=== PATIENT | male | born 1960 | race Caucasian/White ===

== ENCOUNTER 2018-04-23 13:56 | Inpatient (IN) | payer MEDICARE, OTHER ==
--- NOTE | 2018-04-23 14:01 | ED ---
Weakness HPI - General Stated complaint: INFECTION Time Seen by Provider: 04/23/18 14:00 Source: RN notes reviewed, old records reviewed - History of Present Illness Initial comments: This is a 49-year-old male the ER for evaluation of wound recheck. Patient has left sacral decubitus ulcer become red and erythematous today. Patient notes any symptoms, he does not feel pain there, he denies any fevers. Per staff patient had change in infection and change and wound overnight. Location: other (Patient has left pulse ox decubitus ulcer) Severity: severe (Surrounding erythema) Improves with: none Worsens with: none Context: recent surgery, history of similar (Patient has chronic decubitus) Associated Symptoms: denies other symptoms - Related Data Home Medications Medication Instructions Recorded Confirmed Acetaminophen [Tylenol] 650 mg PO Q6HR 04/23/18 04/23/18 Acetaminophen-Codeine 300-30mg 1 tab PO Q4H 04/23/18 04/23/18 [Tylenol w/codeine #3] Collagenase [Santyl] 1 applic TOPICAL HS 04/23/18 04/23/18 Lisinopril [Prinivil] 5 mg PO DAILY 04/23/18 04/23/18 Magnesium Hydroxide [Milk of 2,400 mg PO DAILY PRN 04/23/18 04/23/18 Magnesia] Omeprazole 20 mg PO BID 04/23/18 04/23/18 Potassium Chloride [Klor-Con 20] 20 meq PO DAILY 04/23/18 04/23/18 Simethicone [Gas-X] 125 mg PO Q8HR PRN 04/23/18 04/23/18 Allergies Allergy/AdvReac Type Severity Reaction Status Date / Time No Known Allergies Allergy Verified 04/23/18 14:20 Review of Systems ROS Statement: Those systems with pertinent positive or pertinent negative responses have been documented in the HPI. ROS Other: All systems not noted in ROS Statement are negative. Past Medical History - Past Family History Mother Family Medical History: Cancer Additional Family Medical History / Comment(s): breast cancer. mom's mom had breast cancer Sister(s) Family Medical History: Cancer Additional Family Medical History / Comment(s): breast cancer General Exam - General Exam Comments Initial Comments: Significant left sacral decubitus, wound is packed draining pus of ear surrounding erythema General appearance: alert, in no apparent distress Head exam: Present: atraumatic, normocephalic, normal inspection Eye exam: Present: normal appearance, PERRL, EOMI. Absent: scleral icterus, conjunctival injection, periorbital swelling ENT exam: Present: normal exam, mucous membranes moist Neck exam: Present: normal inspection. Absent: tenderness, meningismus, lymphadenopathy Respiratory exam: Present: normal lung sounds bilaterally. Absent: respiratory distress, wheezes, rales, rhonchi, stridor Cardiovascular Exam: Present: regular rate, normal rhythm, normal heart sounds. Absent: systolic murmur, diastolic murmur, rubs, gallop, clicks GI/Abdominal exam: Present: soft, normal bowel sounds. Absent: distended, tenderness, guarding, rebound, rigid Extremities exam: Present: normal inspection, full ROM, normal capillary refill. Absent: tenderness, pedal edema, joint swelling, calf tenderness Back exam: Present: normal inspection Neurological exam: Present: alert, oriented X3, CN II-XII intact Psychiatric exam: Present: normal affect, normal mood Skin exam: Present: warm, dry, intact, normal color. Absent: rash Course Vital Signs 04/23/18 04/23/18 14:01 17:00 Temperature 98.9 F 98.3 F Pulse Rate 115 H 99 Respiratory 20 18 Rate Blood Pressure 104/65 105/65 O2 Sat by Pulse 100 96 Oximetry - Reevaluation(s) Reevaluation #1: 04/23/18 14:18 Medical record is reviewed Reevaluation #2: 04/23/18 14:18 Patient has significant wound to the left buttock's, wound is packed draining pus Medical Decision Making - Medical Decision Making 57 male the ER for evaluation of left sacral decubitus ulcer, patient is paraplegic pain, CT negative for abscess or air. Patient placed on antibiotics will admit for wound care - Lab Data Result diagrams: 04/23/18 14:40 04/25/18 06:57 Lab Results 04/23/18 04/23/18 04/23/18 Range/Units 14:40 14:40 14:40 WBC 14.2 H (3.8-10.6) k/uL RBC 3.85 L (4.30-5.90) m/uL Hgb 10.7 L (13.0-17.5) gm/dL Hct 34.0 L (39.0-53.0) % MCV 88.1 (80.0-100.0) fL MCH 27.8 (25.0-35.0) pg MCHC 31.5 (31.0-37.0) g/dL RDW 14.5 (11.5-15.5) % Plt Count 497 H (150-450) k/uL Neutrophils % 80 % Lymphocytes % 8 % Monocytes % 5 % Eosinophils % 4 % Basophils % 0 % Neutrophils # 11.4 H (1.3-7.7) k/uL Lymphocytes # 1.2 (1.0-4.8) k/uL Monocytes # 0.8 (0-1.0) k/uL Eosinophils # 0.5 (0-0.7) k/uL Basophils # 0.1 (0-0.2) k/uL Hypochromasia Slight PT (9.0-12.0) sec INR (<1.2) APTT (22.0-30.0) sec Sodium 133 L (137-145) mmol/L Potassium 5.7 H (3.5-5.1) mmol/L Chloride 102 (98-107) mmol/L Carbon Dioxide 22 (22-30) mmol/L Anion Gap 9 mmol/L BUN 35 H (9-20) mg/dL Creatinine 0.75 (0.66-1.25) mg/dL Est GFR (CKD-EPI)AfAm >90 (>60 ml/min/1.73 sqM) Est GFR (CKD-EPI)NonAf >90 (>60 ml/min/1.73 sqM) Glucose 114 H (74-99) mg/dL Plasma Lactic Acid Ramsey (0.7-2.0) mmol/L Calcium 12.4 H (8.4-10.2) mg/dL Phosphorus 2.9 (2.5-4.5) mg/dL Magnesium 1.9 (1.6-2.3) mg/dL Total Bilirubin 0.4 (0.2-1.3) mg/dL AST 43 (17-59) U/L ALT 113 H (21-72) U/L Alkaline Phosphatase 148 H (38-126) U/L Total Creatine Kinase <20 L (55-170) U/L CK-MB (CK-2) <0.2 (0.0-2.4) ng/mL CK-MB (CK-2) Rel Index Troponin I <0.012 (0.000-0.034) ng/mL Total Protein 6.9 (6.3-8.2) g/dL Albumin 3.2 L (3.5-5.0) g/dL Urine Color Urine Appearance (Clear) Urine pH (5.0-8.0) Ur Specific [place] (1.001-1.035) Urine Protein (Negative) Urine Glucose (UA) (Negative) Urine Ketones (Negative) Urine Blood (Negative) Urine Nitrite (Negative) Urine Bilirubin (Negative) Urine Urobilinogen (<2.0) mg/dL Ur Leukocyte Esterase (Negative) Urine RBC (0-5) /hpf Urine WBC (0-5) /hpf Urine WBC Clumps (None) /hpf Amorphous Sediment (None) /hpf Urine Bacteria (None) /hpf Hyaline Casts (0-2) /lpf Granular Casts (0) /lpf Urine Mucus (None) /hpf 04/23/18 04/23/18 04/23/18 Range/Units 14:40 14:40 14:40 WBC (3.8-10.6) k/uL RBC (4.30-5.90) m/uL Hgb (13.0-17.5) gm/dL Hct (39.0-53.0) % MCV (80.0-100.0) fL MCH (25.0-35.0) pg MCHC (31.0-37.0) g/dL RDW (11.5-15.5) % Plt Count (150-450) k/uL Neutrophils % % Lymphocytes % % Monocytes % % Eosinophils % % Basophils % % Neutrophils # (1.3-7.7) k/uL Lymphocytes # (1.0-4.8) k/uL Monocytes # (0-1.0) k/uL Eosinophils # (0-0.7) k/uL Basophils # (0-0.2) k/uL Hypochromasia PT 10.6 (9.0-12.0) sec INR 1.1 (<1.2) APTT 22.7 (22.0-30.0) sec Sodium (137-145) mmol/L Potassium (3.5-5.1) mmol/L Chloride (98-107) mmol/L Carbon Dioxide (22-30) mmol/L Anion Gap mmol/L BUN (9-20) mg/dL Creatinine (0.66-1.25) mg/dL Est GFR (CKD-EPI)AfAm (>60 ml/min/1.73 sqM) Est GFR (CKD-EPI)NonAf (>60 ml/min/1.73 sqM) Glucose (74-99) mg/dL Plasma Lactic Acid Ramsey 1.5 (0.7-2.0) mmol/L Calcium (8.4-10.2) mg/dL Phosphorus (2.5-4.5) mg/dL Magnesium (1.6-2.3) mg/dL Total Bilirubin (0.2-1.3) mg/dL AST (17-59) U/L ALT (21-72) U/L Alkaline Phosphatase (38-126) U/L Total Creatine Kinase (55-170) U/L CK-MB (CK-2) (0.0-2.4) ng/mL CK-MB (CK-2) Rel Index Troponin I (0.000-0.034) ng/mL Total Protein (6.3-8.2) g/dL Albumin (3.5-5.0) g/dL Urine Color Yellow Urine Appearance Cloudy (Clear) Urine pH 6.0 (5.0-8.0) Ur Specific [place] 1.013 (1.001-1.035) Urine Protein Trace H (Negative) Urine Glucose (UA) Negative (Negative) Urine Ketones Negative (Negative) Urine Blood Small H (Negative) Urine Nitrite Negative (Negative) Urine Bilirubin Negative (Negative) Urine Urobilinogen <2.0 (<2.0) mg/dL Ur Leukocyte Esterase Large H (Negative) Urine RBC 6 H (0-5) /hpf Urine WBC >182 H (0-5) /hpf Urine WBC Clumps Many H (None) /hpf Amorphous Sediment Occasional H (None) /hpf Urine Bacteria Moderate H (None) /hpf Hyaline Casts 6 H (0-2) /lpf Granular Casts 3 (0) /lpf Urine Mucus Rare H (None) /hpf - Radiology Data Radiology results: report reviewed (CT abdomen pelvis likely cellulitis), image reviewed Disposition Clinical Impression: Sacral decubitus ulcer, stage IV, UTI (urinary tract infection) Disposition: ADMITTED IP TO THIS HOSP Condition: Serious Is patient prescribed a controlled substance at d/c from ED?: No
[2018-04-23] MEDS ORDERED: PIPERACILLIN-TAZOBACTAM 3.375 GM in SODIUM CHLORIDE 0.9% 100 ML IVPB STA (14:12)
[2018-04-23] MEDS ORDERED: SODIUM CHLORIDE 0.9% 500 ML 500 ML IV STA (14:12)
[2018-04-23] MEDS ORDERED: VANCOMYCIN IV PER PHARMACY 1 EACH MISC MISCELLANE PRN (14:12)
[2018-04-23] MEDS ORDERED: SODIUM CHLORIDE 0.9% 1,000 ML IV STA (14:12)
[2018-04-23 15:09] LABS: Basophils # (A) 0.1 k/uL (0-0.2); Basophils % (A) 0 %; Eosinophils # (A) 0.5 k/uL (0-0.7); Eosinophils % (A) 4 %; HGB 10.7 gm/dL (13.0-17.5); Hypochromasia Slight; Lymphocytes # (A) 1.2 k/uL (1.0-4.8); Lymphocytes % (A) 8 %; MCH 27.8 pg (25.0-35.0); MCHC 31.5 g/dL (31.0-37.0); MCV 88.1 fL (80.0-100.0); Mean Platelet Volume 7.1; Monocytes # (A) 0.8 k/uL (0-1.0); Monocytes % (A) 5 %; Neutrophils # (A) 11.4 k/uL (1.3-7.7); Neutrophils % (A) 80 %; Platelet Count 497 k/uL (150-450); RBC 3.85 m/uL (4.30-5.90); RDW 14.5 % (11.5-15.5); WBC 14.2 k/uL (3.8-10.6)
[2018-04-23 15:15] LABS: Amorphous Sediment,Urine Occasional /hpf; Appearance,Urine Cloudy (Clear); Bacteria,Urine Moderate /hpf; Bilirubin,Urine Negative (Negative); Blood,Urine Small (Negative); Color,Urine Yellow; Glucose,Urine (UA) Negative (Negative); Granular Casts,Urine 3 /lpf (0); Hyaline Casts,Urine 6 /lpf (0-2); Ketones,Urine Negative (Negative); Leukocyte Esterase,Urine Large (Negative); Mucus,Urine Rare /hpf; Nitrite,Urine Negative (Negative); Protein,Urine Trace (Negative); RBC,Urine 6 /hpf (0-5); Specific Gravity,Urine 1.013 (1.001-1.035); Urobilinogen,Urine <2.0 mg/dL (<2.0); WBC,Urine >182 /hpf (0-5)
[2018-04-23] MEDS ORDERED: VANCOMYCIN 1,000 MG in SODIUM CHLORIDE 0.9% 250 ML IVPB STA (15:17)
[2018-04-23 15:21] LABS: ALT 113 U/L (21-72); AST 43 U/L (17-59); Albumin 3.2 g/dL (3.5-5.0); Alkaline Phosphatase 148 U/L (38-126); Anion Gap 9 mmol/L; Blood Urea Nitrogen 35 mg/dL (9-20); Calcium 12.4 mg/dL (8.4-10.2); Carbon Dioxide 22 mmol/L (22-30); Chloride 102 mmol/L (98-107); Glucose 114 mg/dL (74-99); Magnesium 1.9 mg/dL (1.6-2.3); Phosphorus 2.9 mg/dL (2.5-4.5); Potassium 5.7 mmol/L (3.5-5.1); Sodium 133 mmol/L (137-145); Total Bilirubin 0.4 mg/dL (0.2-1.3); Total Protein 6.9 g/dL (6.3-8.2)
[2018-04-23 15:53] LABS: Creatine Kinase <20 U/L (55-170)
[2018-04-23 15:54] LABS: INR 1.1 (<1.2); Partial Thromboplastin Time 22.7 sec (22.0-30.0); Prothrombin Time 10.6 sec (9.0-12.0)
[2018-04-23] MEDS ORDERED: SODIUM CHLORIDE 0.9% 1,000 ML IV SCH (16:00)
[2018-04-23] MEDS ORDERED: PIPERACILLIN-TAZOBACTAM 3.375 GM in SODIUM CHLORIDE 0.9% 100 ML IVPB SCH (16:00)
[2018-04-23 16:06] LABS: Creatine Kinase MB <0.2 ng/mL (0.0-2.4); Troponin I <0.012 ng/mL (0.000-0.034)
--- NOTE | 2018-04-23 16:26 | CT ---
EXAMINATION TYPE: CT abdomen pelvis w con DATE OF EXAM: 04/23/2018 COMPARISON: None HISTORY: Infection to buttocks CT DLP: 1065.9 mGycm Automated exposure control for dose reduction was used. TECHNIQUE: Helical acquisition of images from the lung bases through the pelvis have been completed. CONTRAST: Performed without Oral Contrast and with IV Contrast, patient injected with 100 mL of Isovue 300. FINDINGS: LUNG BASES: No significant abnormality is appreciated. AORTA: No significant abnormality is appreciated. LIVER/GB: No significant abnormality is appreciated. PANCREAS: No significant abnormality is seen. SPLEEN: No significant abnormality is seen. ADRENALS: No significant abnormality is seen. KIDNEYS: Postop changes are noted to the left kidney, there are surgical clips present, left retroaor tic renal vein is present REPRODUCTIVE ORGANS: No significant abnormality is seen BOWEL: No significant abnormality is seen. FREE AIR: No Free Air visible. ASCITES: None visible. PELVIC ADENOPATHY: None visualized. RETROPERITONEAL ADENOPATHY: No Retroperitoneal Adenopathy visible. URINARY BLADDER: Suprapubic catheter is in place, the bladder wall is thickened OSSEOUS STRUCTURES: Spina bifida deformity is present, there is a scoliotic curvature with a rotator y component of the spine. Distortion of the hips is likely chronic. Sacrum shows an abnormal appearan ce, abnormal segmentation noted at the lower lumbar spine, anterior wedging present of the lower lumb ar segment is likely congenital. Superficial to this level there is abnormal thickening of the skin l ikely due to cellulitis. No definite periosteal new bone formation to suggest osteomyelitis. IMPRESSION: CORRELATE FOR CELLULITIS. BONE SCAN OR MRI MAY BE OF INCREASED SENSITIVITY. 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 NO EVIDENT ABSCESS.
--- NOTE | 2018-04-23 17:21 | XR ---
EXAMINATION TYPE: XR chest 2V DATE OF EXAM: 04/23/2018 COMPARISON: NONE HISTORY: Weakness TECHNIQUE: Frontal and lateral views of the chest are obtained. FINDINGS: There is no heart failure nor confluent pneumonic infiltrate. There is poor inspiration. C ostophrenic angles are clear. Bony thorax is intact. IMPRESSION: No active cardiopulmonary disease.
[2018-04-23 18:06] VITALS: BMI 24.9
[2018-04-23] MEDS: Acetaminophen-Codeine 300-30mg TAB PO SCH ×2 (19:27→23:15)
[2018-04-23] MEDS: SODIUM CHLORIDE 0.9% 1,000 ML IV SCH (20:51)
[2018-04-23] MEDS ORDERED: NON-FORMULARY DRUG (Omeprazole [Omeprazole] 20 MG) PO SCH (21:00)
[2018-04-23] MEDS ORDERED: MAGNESIUM HYDROXIDE 2,400 MG/10 ML CUP PO PRN ×2 (23:04)
[2018-04-23] MEDS ORDERED: ONDANSETRON 4 MG/2 ML VIAL IVP PRN (23:04)
[2018-04-23] MEDS ORDERED: SIMETHICONE 80 MG CHEWABLE PO PRN (23:04)
[2018-04-23] MEDS ORDERED: CALCIUM CARBONATE 500 MG CHEWABLE PO PRN (23:04)
[2018-04-23] MEDS ORDERED: MELATONIN 3 MG TABLET PO PRN (23:04)
[2018-04-23] MEDS ORDERED: LACTULOSE 20 GM/30 ML CUP PO PRN (23:04)
[2018-04-23] MEDS ORDERED: ALPRAZolam 0.25 MG TAB PO PRN (23:04)
[2018-04-23] MEDS ORDERED: SODIUM POLYSTYRENE SULFONATE 15 GM/60 ML BOTTLE PO STA (23:12)
[2018-04-23] MEDS: PIPERACILLIN-TAZOBACTAM 3.375 GM in SODIUM CHLORIDE 0.9% 100 ML IVPB SCH (23:15)
--- NOTE | 2018-04-23 23:50 | HP ---
HISTORY AND PHYSICAL DATE OF ADMISSION: 04/23/2018 DATE OF SERVICE: 04/23/2018 PRESENTING COMPLAINT: Sacral decubitus ulcer, infected. HISTORY OF PRESENTING COMPLAINT: This is a very pleasant 57-year-old patient who had recently been followed by Dr. Nam. Chronic stable medical conditions include GERD, hypertension, primary osteoarthritis, neurogenic bladder, spina bifid, hiatal hernia, an injury to the right shoulder muscle. The patient in summer of this year took a fall from a chair. It is unclear exactly what happened. He suffered injury to his right shoulder. The patient has chronic sacral decubitus ulcer that has dressing changes done every about twice a day. He was sent in because looking large wound was being exposed looking more infected and draining. Hence he was sent in for the same. The patient has got a suprapubic catheter and the patient normally has a daily evacuation. The patient used to do it manually before but now able to go himself. Patient also got a right heel decubitus ulcer. There has been no fever. No chills. Appetite is good. REVIEW OF SYSTEMS: CONSTITUTIONAL: None. HEENT: None. RESPIRATORY: None. CARDIOVASCULAR: None. GASTROINTESTINAL none. GENITOURINARY as above. MUSCULOSKELETAL: As above. DERMATOLOGICAL as above. LYMPHATICS none. PSYCHIATRY none. NEUROLOGICAL: Lower limbs contracted contractures and weakness. PAST MEDICAL HISTORY: GERD, hypertension, osteoarthritis, UTI and neurogenic bladder, spina bifid suprapubic catheter, lumbar sacral decubital ulcers, hiatal hernia, ureteral stricture, torn muscle in the right shoulder. PAST SURGICAL HISTORY: Cholecystectomy, multiple surgeries, skin graft, spina bifid, kidney surgery with the stent, pubic catheter skin cancer removed from the lower back. SOCIAL HISTORY: The patient smoked for 38 years, stopped in 2012, has not drank any. Patient used to drink occasional alcohol which he stopped in December. FAMILY HISTORY: Maternal grandmother had breast cancer. HOME MEDICATIONS: 1. Gas-X 125 mg q.8h p.r.n. 2. Potassium 20 mEq p.o. daily. 3. Omeprazole 20 mg b.i.d. 4. Milk of magnesia 25 mg p.o. daily p.r.n. 5. Prinivil 5 mg p.o. daily. 6. Santal 1 application topical q.h.s. 7. Tylenol 3 one tablet q.4 p.r.n. 8. Tylenol 650 mg q.6h p.r.n. ALLERGIES: None. PHYSICAL EXAMINATION: VITAL SIGNS: Temperature 98.9, pulse 1 1 5, respiration 20, blood pressure 104/65, pulse 100 percent on room air. GENERAL: Average build, lying in bed, comfortable, watching TV. EYES : Pupils equal. Conjunctivae normal. HEENT: External appearance of nose and ears normal. Oral cavity normal. NECK: JVD not raised. Mass not palpable. RESPIRATORY effort normal. LUNGS: Clear. CARDIOVASCULAR: 1st and 2nd sounds normal. No edema. ABDOMEN: Soft nontender liver is not palpable. Suprapubic catheter present. LYMPHATICS: No lymph nodes palpable in neck and axillae. PSYCHIATRY: Alert and oriented x3. Mood and affect normal. NEUROLOGICAL: Both the lower limbs are contracted shortened with decreased sensation. DERMATOLOGICAL: Large decubitus on the back with some exposure to the bone. Pictures in the chart. The patient has got an ulcer on the right heel. INVESTIGATIONS: White count 14.2, hemoglobin 10.7, platelets 497. Potassium 5.7, BUN 35, creatinine 0.75. ASSESSMENT: 1. Large decubital ulcer with secondary infection, concern for underlying osteomyelitis needs further workup. 2. Normocytic anemia probably from chronic decubitus ulcer. 3. Reactive thrombocytosis. 4. Hyperkalemia. 5. Possibly asymptomatic bacteriuria. 6. Chronic neurogenic bladder from spina bifida with a suprapubic catheter. 7. Chronic paraplegia from spina bifida. 8. Hyperkalemia. The patient is on Prinivil and is also on potassium supplement. PLAN: Both patient's MELVIN inhibitor and potassium supplement will be discontinued as blood pressure is not too high right now. Will choose a different antihypertensive if indicated. Start the patient on IV fluids. Both Infectious Disease and general surgery was consulted. The patient will probably need a bone scan or simply the base looks patient may need long-term antibiotics antibiotics. Care was discussed with the patient. Questions were answered copy to Dr. Nam. ROBERTO / QUE: [id number] /
--- NOTE | 2018-04-24 00:05 | CONS ---
CONSULTATION DATE OF SERVICE: 04/23/2018. REASON FOR CONSULTATION: Infected sacral pressure ulcer. HISTORY OF PRESENT ILLNESS: The patient is a 57-year-old male with a past medical history significant for spina bifida. The patient who apparently did have a wound to the sacral area for a couple of weeks to months now. The patient who is a resident of [facility] and has been under the care of Dr. Chapa, the wound care physician at that facility. The patient has been sent to the [facility] ER for evaluation of an infected wound. The patient apparently noticed to have purulent drainage from the sacral wound for the last few days. The patient does not have any significant sensation to the sacral area because of spinal bifida. Denies significant pain to that area. However, the drainage has been mostly moderate and purulent with no evidence of any blood. The patient did have some chills but denies high-grade fever. With these symptoms, the patient has been evaluated by the ER physician. Patient was slightly tachycardic on presentation however no fever. The patient did have a white count of 14.2. Urine has been positive as well. The patient did have a CT of the abdomen and pelvis obtained which did not show any definite evidence of an abscess or the periosteal lesion suspicious for osteomyelitis of the sacral bone. The patient was started on vancomycin and Zosyn. Infectious Disease was consulted for further recommendation regarding antibiotic therapy. REVIEW OF SYSTEMS: CONSTITUTIONAL: Positive for weakness. Denies any fever. EYES no complaint. ENT no complaint. Respiratory no complaint. Cardiovascular no complaint. Genitourinary no complaint. Gastrointestinal: No complaint. Musculoskeletal as per HPI. INTEGUMENTARY as per HPI. Psychological no complaint. Endocrine no complaint. Neurological no complaint. PAST MEDICAL HISTORY: Significant for a spina bifida, chronic nonhealing wound to the sacral area, hypertension, gastroesophageal reflux disease. PAST SURGICAL HISTORY: No major surgeries documented in chart. SOCIAL HISTORY: The patient is currently a resident of a [facility]. Denies any smoking, drinking or drug use. FAMILY HISTORY: No pertinent findings noticed. ALLERGIES: No known drug allergies. MEDICATION: The patient is on Zestril, Tylenol #3, Protonix, Zosyn and vancomycin pharmacy to dose. EXAMINATION: Blood pressure is 127/74 with a pulse of 108, temperature 98.4. He is 99% on room air. General description is a middle-aged male lying in bed in no distress. No tachypnea or accessory muscles of respiration use. HEENT: Shows slight pallor. No scleral icterus. Oral mucosa is dry. No pharyngeal erythema. Neck trachea is central. No thyromegaly. Lungs: Unlabored breathing. Clear to auscultation anteriorly. No wheeze or crackles. Heart S1, S2. Regular rate and rhythm. ABDOMEN: Soft, no tenderness. No guarding or rigidity. EXTREMITIES: No edema of feet. Examination of sacral area: The patient did have a deep wound with probing all the way down to the bone with a significant amount of purulent material that has been seen that has been cultured with some surrounding redness, minimal foul smelling drainage. Neurological: Patient is awake, alert , oriented. Mood and affect normal. LABS: Hemoglobin is 10.7, white count 14.2, BUN of 35, creatinine 0.75, potassium was 5.7. UA has been positive. However, this has been collected from the Haas catheter the patient has. DIAGNOSTIC IMPRESSION/PLAN: 1. Patient admitted to the hospital with nonhealing sacral wound with concern for underlying osteomyelitis as wound is probing down to the bone. In view of the significant purulent drainage that has been seen, concern for underlying abscess that may need to be drained surgically. 2. Likely organism that will be covered, will be the gram-positive skin maría. However in view of the close proximity to the gastrointestinal tract, underlying gram-negative infection to be considered as well as the patient being halfway resident likely will need to cover will be MRSA and Pseudomonas aeruginosa. 3. Patient does have a positive UA and this has been collected from Haas catheter, chronic indwelling and question of possible Haas colonization. PLAN: 1. Wound culture has been obtained to guide further antibiotic therapy, both aerobic and anaerobic. 2. Recommend obtaining General Surgery evaluation for debridement of this wound and deep cultures. 3. The patient will be treated with vancomycin pharmacy to dose target trough of 15 along with Zosyn 3.375 g Q 8. 4. Continuous Haas catheter. Obtain urine culture from new Haas. 5. We will follow up on clinical condition as well as cultures to further adjust medication if needed. Thank you for this consultation. Will follow the patient along with you. MMODL / IJN: [id number] / KATERIN
[2018-04-24] MEDS: SODIUM CHLORIDE 0.9% 1,000 ML IV SCH ×4 (00:35→22:05)
[2018-04-24] MEDS: ACETAMINOPHEN TAB 325 MG TAB PO SCH ×4 (00:35→16:42)
[2018-04-24 01:15] LABS: Appearance,Urine Cloudy (Clear); Bacteria,Urine Few /hpf; Bilirubin,Urine Negative (Negative); Blood,Urine Small (Negative); Color,Urine Light Yellow; Glucose,Urine (UA) Negative (Negative); Ketones,Urine Negative (Negative); Leukocyte Esterase,Urine Large (Negative); Mucus,Urine Rare /hpf; Nitrite,Urine Negative (Negative); PH, Urine 5.5 (5.0-8.0); Protein,Urine Trace (Negative); RBC,Urine 4 /hpf (0-5); Specific Gravity,Urine 1.016 (1.001-1.035); Urobilinogen,Urine <2.0 mg/dL (<2.0)
[2018-04-24] MEDS: Acetaminophen-Codeine 300-30mg TAB PO SCH ×5 (04:02→22:04)
[2018-04-24] MEDS: VANCOMYCIN 1,000 MG in SODIUM CHLORIDE 0.9% 250 ML IVPB SCH ×2 (05:05→17:43)
[2018-04-24 08:10] LABS: Anion Gap 5 mmol/L; Blood Urea Nitrogen 27 mg/dL (9-20); Calcium 11.2 mg/dL (8.4-10.2); Carbon Dioxide 21 mmol/L (22-30); Chloride 110 mmol/L (98-107); Glucose 97 mg/dL (74-99); Potassium 4.7 mmol/L (3.5-5.1); Sodium 136 mmol/L (137-145)
[2018-04-24] MEDS: PIPERACILLIN-TAZOBACTAM 3.375 GM in SODIUM CHLORIDE 0.9% 100 ML IVPB SCH ×2 (08:50→16:38)
[2018-04-24] MEDS ORDERED: PANTOPRAZOLE 40 MG/10 ML VIAL IV SCH (09:00)
[2018-04-24] MEDS ORDERED: POTASSIUM CHLORIDE ER 20 MEQ TAB.ER PO SCH (09:00)
[2018-04-24] MEDS ORDERED: LISINOPRIL 5 MG TAB PO SCH (09:00)
--- NOTE | 2018-04-24 18:30 | PN ---
PROGRESS NOTE DATE OF SERVICE: 04/24/2018 PRESENTING COMPLAINT: Infected decubitus ulcer. INTERVAL HISTORY: This patient with spina bifid and paraplegia presented with a large infected decubitus ulcer. The patient is on broad-spectrum antibiotics, being followed by ID, and General Surgery was consulted. Currently no fever, no chills. REVIEW OF SYSTEMS: Done for constitutional, cardiovascular, GI, pulmonary, dermatologic; relevant findings as above. CURRENT MEDICATIONS: Reviewed. They include IV Zosyn and vancomycin. PHYSICAL EXAMINATION: Afebrile. Pulse 78, respiration 16, blood pressure 103/65, pulse ox 100% on room air. GENERAL APPEARANCE: Lying in bed, awake. EYES: Pupils equal. Conjunctivae normal. HEENT: External appearance of nose and ears normal. Oral cavity normal. NECK: JVD not raised. Mass not palpable. RESPIRATORY: Effort normal. Lungs are clear. CARDIOVASCULAR: First and second sounds normal. No edema. ABDOMEN: Soft, non-tender. Suprapubic catheter present. DERMATOLOGICAL: Large decubitus ulcer on the back; picture in the chart. Also right heel ulcer. INVESTIGATIONS: Potassium 4.7, BUN 27, creatinine 0.64. ASSESSMENT: 1. Large sacral decubitus ulcer with secondary infection, possibly underlying acute osteomyelitis, on broad-spectrum antibiotics. 2. Normocytic anemia, probably from chronic decubitus ulcer. 3. Reactive thrombocytosis. 4. Hyperkalemia, now corrected. 5. Possibly asymptomatic bacteriuria. 6. Chronic neurogenic bladder from spina bifida and suprapubic catheter. 7. Chronic paraplegia from spina bifida. 8. Chronic medical disability. PLAN: Awaiting surgical input. In the meantime, patient is continued on broad-spectrum antibiotics. The patient was seen by Dr. Walker from Infectious Disease. Will follow. MMODL / IJN: [id number] /
[2018-04-24 20:46] LABS: Glucose,Whole Blood 156 mg/dL (75-99)
--- NOTE | 2018-04-24 22:12 | PN ---
PROGRESS NOTE DATE OF SERVICE: 04/24/2018. REASON FOR FOLLOW UP: Infected stage IV sacral pressure ulcer with underlying osteomyelitis. INTERVAL HISTORY: The patient is afebrile, has been breathing comfortably. Denies having any chest pain, shortness of breath or cough. No abdominal pain. No diarrhea. EXAMINATION: Blood pressure is 103/65, pulse of 78, temperature 98. He is 100% on room air. General description is a middle-aged male lying in bed in no distress. Respiratory system: Unlabored breathing, clear to auscultation anteriorly. Heart S1, S2. Regular rate and rhythm. Abdomen soft. No tenderness. Extremities: No edema of the feet. LAB: BUN of 27, creatinine 0.64. Cultures currently showing gram-negative bacilli and group B strep. DIAGNOSTIC IMPRESSION AND PLAN: Patient with stage IV infected sacral pressure ulcer with underlying osteomyelitis and abscess. Surgery has been consulted for debridement of the wound and deep cultures. The patient at this time on vancomycin that will be continued while waiting for the culture to finalize watching his kidney function closely. Continue supportive care. MMODL / IJN: [id number] /
[2018-04-24] MEDS: COLLAGENASE 250 UNIT/GM OINTMENT 30 GM TUBE TOPICAL SCH (23:23)
[2018-04-25] MEDS: Acetaminophen-Codeine 300-30mg TAB PO SCH ×7 (00:01→23:44)
[2018-04-25] MEDS: PIPERACILLIN-TAZOBACTAM 3.375 GM in SODIUM CHLORIDE 0.9% 100 ML IVPB SCH ×3 (00:02→17:50)
[2018-04-25] MEDS: ACETAMINOPHEN TAB 325 MG TAB PO SCH ×4 (00:53→19:16)
[2018-04-25] MEDS: SODIUM CHLORIDE 0.9% 1,000 ML IV SCH ×4 (02:47→22:23)
--- NOTE | 2018-04-25 03:18 | P.GSCN ---
History of Present Illness Consult date: 04/24/18 History of present illness: CHIEF COMPLAINT: Chronic sacral decubitus ulcer HISTORY OF PRESENT ILLNESS: The patient is a 58-year-old male with lifelong spina bifida. He has history of multiple skin grafts for a chronic sacral decubiti ulcer. As a result of his spina bifida, he has neurogenic bladder as well as suprapubic catheter. He often has multiple debridements of the sacral decubiti ulcer. As of recent, the decubiti ulcer has malodorous drainage with depth. Per request of his infectious disease doctor, debridement is being requested. PAST MEDICAL HISTORY: See list. PAST SURGICAL HISTORY: See list. MEDICATIONS: See list. ALLERGIES: See list. SOCIAL HISTORY: No illicit drug use. Past tobacco abuse. Past alcohol abuse. FAMILY HISTORY: Notable for breast cancer. REVIEW OF ORGAN SYSTEMS: CONSTITUTIONAL: No fevers or chills HEENT: No troubles with vision or hearing. No reports of dysphagia. ENDOCRINE: No reports of thyroid disorders. No diabetes. CARDIOVASCULAR: No heart attack. No chest pain. RESPIRATORY: No shortness of breath or pneumonia. GASTROINTESTINAL: No reports of recent blood in stools. NEURO: No reports of stroke or seizure disorders. PSYCH: No depression or suicidal ideation HEMATOLOGIC: No easy bruising or bleeding LYMPHATIC: The patient denies any lumps and bumps around the neck. GENITOURINARY: Has suprapubic catheter. Also has neurogenic bladder. MUSCULOSKELETAL: Has spina bifida. SKIN: Past skin graft for sacral ulcers. PHYSICAL EXAM: VITAL SIGNS: Currently stable. GENERAL: Well-developed in no acute distress. HEENT: No sclera icterus. Extraocular movements grossly intact. Moist buccal mucosa. Head is atraumatic, normocephalic. Hears conversational speech. No nasal drainage. NECK: Supple without lymphadenopathy. CHEST: Non-labored respirations and equal bilateral excursions. CARDIOVASCULAR: Regular rate with regular rhythm. Palpable 2+ radial pulses. ABDOMEN: Soft. Nondistended. No peritonitis. MUSCULOSKELETAL: No clubbing, cyanosis or edema. NEUROLOGIC: No focal or lateralizing signs. Cranial nerves II through XII grossly intact. PSYCH: Appropriate affect. Alert and oriented to person, place and time. SKIN: Soft tissue necrosis along the sacrum less than 4 cm in size. LABS: Reviewed ASSESSMENT: 1. Chronic decubiti ulcer 2. Leukocytosis PLAN: 1. Patient seen and evaluated with chronic decubiti ulcer requiring debridement. 2. Recommend surgical debridement. Thank you for this kind consultation. Past Medical History Past Medical History: GERD/Reflux, Hypertension, Osteoarthritis (OA) Additional Past Medical History / Comment(s): uti's,neurogenic bladder idc.Spina Bifida lower lt lumbar decub ulcer,hiatal hernia, past urethral stricture(cystoscopy done ),"torn muscle rt shoulder" History of Any Multi-Drug Resistant Organisms: None Reported Past Surgical History: Cholecystectomy Additional Past Surgical History / Comment(s): multiple sx-skin grafts for spina bifida, 08 had cystocopy, Kidney surgery pt stated "it was teri like an anuerysm near kidney they put a stent in", suprapubic catheter , sx to stretch lt leg muscle, skin ca removed from lower back, 1 upper dental implant Past Anesthesia/Blood Transfusion Reactions: No Reported Reaction Additional Past Anesthesia/Blood Transfusion Reaction / Comm: blood transfusion- no reaction Past Psychological History: No Psychological Hx Reported Smoking Status: Former smoker Past Alcohol Use History: Occasional Additional Past Alcohol Use History / Comment(s): started smopking 1973 and quit 2012 smoked 1ppd. has'nt had any alcohol since december 2017, used to drink occ glass of wine Past Drug Use History: Marijuana Additional Drug Use History / Comment(s): age 16 smoked marijuana and tried cocaine twice - Past Family History Mother Family Medical History: Cancer Additional Family Medical History / Comment(s): breast cancer. mom's mom had breast cancer Sister(s) Family Medical History: Cancer Additional Family Medical History / Comment(s): breast cancer Medications and Allergies Home Medications Medication Instructions Recorded Confirmed Type Collagenase [Santyl] 1 applic TOPICAL HS 04/23/18 04/23/18 History Lisinopril [Prinivil] 5 mg PO DAILY 04/23/18 04/23/18 History Magnesium Hydroxide [Milk of 2,400 mg PO DAILY PRN 04/23/18 04/23/18 History Magnesia] Omeprazole 20 mg PO BID 04/23/18 04/23/18 History Potassium Chloride [Klor-Con 20] 20 meq PO DAILY 04/23/18 04/23/18 History Simethicone [Gas-X] 125 mg PO Q8HR PRN 04/23/18 04/23/18 History Acetaminophen-Codeine 300-30mg 1 tab PO Q4H #10 tab 04/29/18 Rx [Tylenol w/codeine #3] Ampicillin-Sulbactam [Unasyn] 3 gm IVPB Q6HR #126 vial 04/29/18 Rx Ciprofloxacin HCl [Cipro] 500 mg PO Q12HR #84 tablet 04/29/18 Rx Sodium Bicarbonate Tab 1,300 mg PO TID tab 04/29/18 Rx Allergies Allergy/AdvReac Type Severity Reaction Status Date / Time No Known Allergies Allergy Verified 04/23/18 14:20 Surgical - Exam Vital Signs Temp Pulse Resp BP Pulse Ox 98.9 F 115 H 20 104/65 100 04/23/18 14:01 04/23/18 14:01 04/23/18 14:01 04/23/18 14:01 04/23/18 14:01 Results - Labs 04/26/18 07:14 04/29/18 07:25 Abnormal Lab Results - Last 24 Hours (Table) 04/24/18 04/24/18 Range/Units 07:13 20:29 Sodium 136 L (137-145) mmol/L Chloride 110 H (98-107) mmol/L Carbon Dioxide 21 L (22-30) mmol/L BUN 27 H (9-20) mg/dL Creatinine 0.64 L (0.66-1.25) mg/dL POC Glucose (mg/dL) 156 H (75-99) mg/dL Calcium 11.2 H (8.4-10.2) mg/dL Microbiology - Last 24 Hours (Table) 04/23/18 14:40 Gram Stain - Preliminary Back Wound Culture - Preliminary Gram Neg Bacilli Strep agalactiae - (group b) 04/23/18 14:40 Blood Culture - Preliminary Blood No Growth after 24 hours 04/24/18 06:05 Gram Stain - Preliminary Back Wound Culture - Preliminary 04/24/18 06:05 Anaerobic Culture - Preliminary Coccyx 04/24/18 00:30 Urine Culture - Preliminary Urine,Voided Diabetes panel 04/24/18 Range/Units 07:13 Sodium 136 L (137-145) mmol/L Potassium 4.7 (3.5-5.1) mmol/L Chloride 110 H (98-107) mmol/L Carbon Dioxide 21 L (22-30) mmol/L BUN 27 H (9-20) mg/dL Creatinine 0.64 L (0.66-1.25) mg/dL Glucose 97 (74-99) mg/dL Calcium 11.2 H (8.4-10.2) mg/dL Calcium panel 04/24/18 Range/Units 07:13 Calcium 11.2 H (8.4-10.2) mg/dL Pituitary panel 04/24/18 Range/Units 07:13 Sodium 136 L (137-145) mmol/L Potassium 4.7 (3.5-5.1) mmol/L Chloride 110 H (98-107) mmol/L Carbon Dioxide 21 L (22-30) mmol/L BUN 27 H (9-20) mg/dL Creatinine 0.64 L (0.66-1.25) mg/dL Glucose 97 (74-99) mg/dL Calcium 11.2 H (8.4-10.2) mg/dL Adrenal panel 04/24/18 Range/Units 07:13 Sodium 136 L (137-145) mmol/L Potassium 4.7 (3.5-5.1) mmol/L Chloride 110 H (98-107) mmol/L Carbon Dioxide 21 L (22-30) mmol/L BUN 27 H (9-20) mg/dL Creatinine 0.64 L (0.66-1.25) mg/dL Glucose 97 (74-99) mg/dL Calcium 11.2 H (8.4-10.2) mg/dL - Imaging CT scan - abdomen: report reviewed, image reviewed CT scan - chest: image reviewed CT scan - pelvis: report reviewed, image reviewed US - abdomen: image reviewed
[2018-04-25] MEDS: VANCOMYCIN 1,000 MG in SODIUM CHLORIDE 0.9% 250 ML IVPB SCH ×2 (05:45→21:15)
[2018-04-25 07:09] LABS: Glucose,Whole Blood 93 mg/dL (75-99)
[2018-04-25 07:40] LABS: Anion Gap 7 mmol/L; Blood Urea Nitrogen 18 mg/dL (9-20); Calcium 10.9 mg/dL (8.4-10.2); Carbon Dioxide 20 mmol/L (22-30); Chloride 110 mmol/L (98-107); Glucose 89 mg/dL (74-99); Potassium 4.3 mmol/L (3.5-5.1); Sodium 137 mmol/L (137-145)
[2018-04-25 12:27] LABS: Glucose,Whole Blood 89 mg/dL (75-99)
--- NOTE | 2018-04-25 13:04 | PN ---
PROGRESS NOTE DATE OF SERVICE: 04/25/2018 REASON FOR FOLLOWUP: Infected sacral pressure ulcer stage IV for likely osteomyelitis. INTERVAL HISTORY: The patient is currently afebrile, he is scheduled for debridement of the sacral wound this afternoon. The patient denies having any chest pain, shortness of breath, cough. No abdominal pain and no diarrhea. PHYSICAL EXAMINATION: Blood pressure 97/61 with a pulse of 88, temperature 98.1. He is 97% on room air. General description is a middle-aged male, lying in bed in no distress. Unlabored breathing. Clear to auscultation anteriorly. HEART: S1, S2. Regular rate and rhythm. ABDOMEN: Soft, no tenderness. EXTREMITIES: No edema of the feet. LABS: Wound culture with Staph aureus, gram-negative bacilli and group B strep. DIAGNOSTIC IMPRESSION AND PLAN: Patient with infected sacral pressure ulcer with multiple pathogen. Currently waiting for debridement and deep cultures. He is currently on vancomycin that will be continued. Discharge antibiotic will depend upon the final cultures and likely need a PICC line for outpatient antibiotic therapy. Questions and concerns were answered. MMODL / IJN: [id number] /
[2018-04-25] MEDS ORDERED: ONDANSETRON 4 MG/2 ML VIAL IVP ONE (14:50)
[2018-04-25] MEDS ORDERED: IV FLUID CONTINUATION 1,000 ML IV ONE (14:50)
[2018-04-25] MEDS ORDERED: HYDROmorphone (PF) 1 MG/ML ONE (15:10)
[2018-04-25] MEDS ORDERED: GLYCOPYRROLATE 0.2 MG/ML 2 ML VIAL ONE (15:10)
[2018-04-25] MEDS ORDERED: PROPOFOL 10 MG/ML 20 ML VIAL IV ONE (15:10)
[2018-04-25] MEDS ORDERED: PHENYLEPHRINE-0.9% NACL SYG 1 MG/10 ML SYRINGE ONE (15:10)
[2018-04-25] MEDS ORDERED: fentaNYL (PF) 50 MCG/ML 2 ML AMP ONE (15:10)
[2018-04-25] MEDS ORDERED: LIDOCAINE 1% INJ 10MG/ML (20 ML MDV) ONE (15:10)
[2018-04-25] MEDS ORDERED: MIDAZOLAM 2 MG/2 ML VIAL ONE (15:10)
[2018-04-25] MEDS ORDERED: LACTATED RINGERS 1,000 ML IV ONE (15:55)
[2018-04-25] MEDS ORDERED: VANCOMYCIN TROUGH DUE 1 EACH MISC MISCELLANE ONE (17:00)
[2018-04-25] MEDS ORDERED: NALOXONE 0.4 MG/ML 1 ML VIAL IV PRN (17:31)
--- NOTE | 2018-04-25 17:35 | P.OP ---
Date of Procedure: 04/25/18 Surgeon: Rosalind Woodson Description of Procedure: SURGEON: ROSALIND WOODSON MD SAFETY LAMP KEEPER: NONE. PREOPERATIVE DIAGNOSES: 1. Sacral decubiti ulcer 2. Spina bifida 3. Gastroesophageal reflux disease 4. Neurogenic bladder 5. Chronic UTI 6. Hiatal hernia POSTOPERATIVE DIAGNOSES: 1. Sacral decubiti ulcer, stage 4 to muscle 2. Spina bifida 3. Gastroesophageal reflux disease 4. Neurogenic bladder 5. Chronic UTI 6. Hiatal hernia OPERATION: 1. Sharp excisional debridement of sacral decubiti ulcer 3 x 3 x 6 cm, Stage IV 2. Water pulse jet lavage debridement 1-L normal saline of sacral decubiti ulcer involving muscle and bone. ANESTHESIA: General. ESTIMATED BLOOD LOSS: 10 mL. COMPLICATIONS: None. SPECIMENS: other (Aerobic and anaerobic tissue culture sacral ulcer) INDICATIONS: The patient is a 58-year-old male former spina bifida including chronic nonhealing decubiti ulcer. He reports multiple debridements in the past however he has developed a complicated sacral decubiti ulcer with abscess. Surgical intervention was requested by his infectious disease doctor and school library media specialist. Benefits and risks were described. Informed consent was obtained. DESCRIPTION: Patient was brought to the operating room, initially placed supine. After general induction, he was repositioned in prone position. The patient was also on schedule antibiotics. The buttock and lower back was prepped and draped in a standard sterile fashion using Betadine. After a timeout protocol, attention was brought to the depth of the wound whereby moderate necrosis with brown to yellow tissue exudate and slough was found along the surface of the wound. Using a #10 blade, sharp excisional debridement was performed including with 4 x 4 sponge where the tissue was debrided to healthy bleeding tissue to the the muscle. The bone was palpated through the muscle without evidence of soft bone or osteomyelitis. Measurements of sacral wound was 6 cm depth by 3 cm with undermining by 3 cm orifice. Purulence was drained from the wound with mechanical debridement using Pulsavac 3 L normal saline. The wound was packed with normal saline soaked 4 x 4 gauze for wet-to-dry dressing. An ABD with 4 x 4 gauze were placed along the wound. Six-inch micropore tape was placed to secure the dressing. He was awoken and taken to the postanesthesia care unit in stable condition. Operative Findings: 1. Stage IV decubiti sacral ulcer with sharp excisional debridement to bleeding tissues 2. 6 cm tunnel along the right lateral deep buttock 3. No palpable evidence of osteomyelitis or soft bone found on clinical examination 4. Sharp excisional debridement performed of subcutaneous tissue to fascia and muscle of sacrococcygeal area of 3 x 3 x 6 cm
[2018-04-25 20:11] LABS: Glucose,Whole Blood 91 mg/dL (75-99)
--- NOTE | 2018-04-25 20:22 | PN ---
PROGRESS NOTE DATE OF SERVICE: 04/25/18. PRESENTING COMPLAINT: Infected decubitus ulcer. INTERVAL HISTORY: This patient with spina bifida and paraplegia, presented with large infected sacral decubitus ulcer. He is getting broad-spectrum IV antibiotics. Due to go down to the OR later today for debridement. Sitting up on bed, comfortable. No fever. No chills. REVIEW OF SYSTEMS: Done for constitutional, cardiovascular, GI, pulmonary; relevant findings as above. CURRENT MEDICATIONS: Reviewed that include IV vancomycin and Zosyn. PHYSICAL EXAMINATION: Temperature 97.5, pulse 97, respiration 12, blood pressure 145/80, pulse ox 99% on room air. GENERAL APPEARANCE: Otherwise, sitting up in bed comfortable. EYES: Pupils equal. Conjunctivae normal. HEENT: External appearance of nose and ears normal. Oral exam normal. NECK: JVD not raised. Mass not palpable. RESPIRATORY: Effort, lungs are clear. CARDIOVASCULAR: 1st and 2nd sounds, no edema. ABDOMEN: Soft nontender. Suprapubic catheter present. DERMATOLOGICAL: Large sacral decubitus right heel ulcer. INVESTIGATIONS: Potassium 4.3, BUN and creatinine are normal. ASSESSMENT: 1. Large sacral decubitus ulcer with secondary infection on broad-spectrum antibiotics. 2. Normocytic anemia probably from chronic decubitus ulcer. 3. Reactive thrombocytosis. 4. Hypokalemia, now corrected. 5. Possibly asymptomatic bacteriuria. 6. Chronic neurogenic bladder from spina bifida and suprapubic catheter. 7. Chronic paraplegia from spina bifida. 8. Chronic medical debility. 9. Right heel decubitus ulcer, present on admission. PLAN: Continue current medication and treatment plan. Awaiting debridement today. Follow with Infectious Disease. MMODL / IJN: [id number] /
[2018-04-25] MEDS: COLLAGENASE 250 UNIT/GM OINTMENT 30 GM TUBE TOPICAL SCH (21:16)
[2018-04-26] MEDS: PIPERACILLIN-TAZOBACTAM 3.375 GM in SODIUM CHLORIDE 0.9% 100 ML IVPB SCH ×3 (00:29→16:17)
[2018-04-26] MEDS: ACETAMINOPHEN TAB 325 MG TAB PO SCH ×4 (00:31→16:16)
[2018-04-26] MEDS: Acetaminophen-Codeine 300-30mg TAB PO SCH ×5 (02:55→20:51)
[2018-04-26] MEDS: SODIUM CHLORIDE 0.9% 1,000 ML IV SCH ×4 (04:38→21:02)
[2018-04-26 07:36] LABS: Glucose,Whole Blood 73 mg/dL (75-99)
[2018-04-26] MEDS: VANCOMYCIN 1,000 MG in SODIUM CHLORIDE 0.9% 250 ML IVPB SCH ×2 (08:00→21:01)
[2018-04-26 08:03] LABS: Basophils % (A) 0 %; Eosinophils # (A) 0.4 k/uL (0-0.7); Eosinophils % (A) 4 %; HCT 31.9 % (39.0-53.0); HGB 9.8 gm/dL (13.0-17.5); Hypochromasia Marked; Lymphocytes % (A) 12 %; MCH 27.4 pg (25.0-35.0); MCHC 30.7 g/dL (31.0-37.0); MCV 89.1 fL (80.0-100.0); Mean Platelet Volume 7.2; Monocytes # (A) 0.5 k/uL (0-1.0); Monocytes % (A) 6 %; Neutrophils # (A) 6.9 k/uL (1.3-7.7); Neutrophils % (A) 77 %; Platelet Count 316 k/uL (150-450); RBC 3.58 m/uL (4.30-5.90); RDW 14.8 % (11.5-15.5)
[2018-04-26 08:45] LABS: Anion Gap 5 mmol/L; Blood Urea Nitrogen 13 mg/dL (9-20); Calcium 10.5 mg/dL (8.4-10.2); Carbon Dioxide 18 mmol/L (22-30); Chloride 115 mmol/L (98-107); Glucose 74 mg/dL (74-99); Sodium 138 mmol/L (137-145)
[2018-04-26 09:00] LABS: Potassium 4.4 mmol/L (3.5-5.1)
--- NOTE | 2018-04-26 12:17 | P.PN ---
Subjective Progress Note Date: 04/26/18 Principal diagnosis: Sacral decubitus ulcer Patient feels well today. Denies pain. No strikethrough on dressings. He is afebrile. White blood cell count 9. Objective - Vital Signs Vital signs: Vital Signs Temp 97.3 F L 04/26/18 07:00 Pulse 86 04/26/18 07:00 Resp 14 04/26/18 08:19 BP 113/69 04/26/18 07:00 Pulse Ox 99 04/26/18 07:00 Intake & Output 04/25/18 04/26/18 04/26/18 18:59 06:59 18:59 Intake Total 2050 3480 480 Output Total 900 625 Balance 1150 2855 480 Weight 56 kg 56 kg Intake: IV 1950 Intake, IV Titration 100 3000 Amount Piperacillin-Tazobactam 3 100 100 .375 gm In Sodium Chloride 0.9% 100 ml @ 25 mls/hr IVPB Q8HR [facility] Rx# :[id number] Sodium Chloride 0.9% 1, 2400 000 ml @ 150 mls/hr IV . Q6H40M [facility] Rx#:[id number] Vancomycin 1,000 mg In 500 Sodium Chloride 0.9% 250 ml @ 125 mls/hr IVPB BID [facility] Rx#:[id number] Oral 480 480 Output: Urine 900 625 Other: Voiding Method Indwelling Catheter Indwelling Catheter Indwelling Catheter - Exam Sacral wound dressing clean and dry, nontender - Labs CBC & Chem 7: 04/26/18 07:14 04/26/18 07:14 Labs: Abnormal Lab Results - Last 24 Hours (Table) 04/26/18 04/26/18 04/26/18 Range/Units 07:14 07:14 07:24 RBC 3.58 L (4.30-5.90) m/uL Hgb 9.8 L (13.0-17.5) gm/dL Hct 31.9 L (39.0-53.0) % MCHC 30.7 L (31.0-37.0) g/dL Chloride 115 H (98-107) mmol/L Carbon Dioxide 18 L (22-30) mmol/L POC Glucose (mg/dL) 73 L (75-99) mg/dL Calcium 10.5 H (8.4-10.2) mg/dL Microbiology - Last 24 Hours (Table) 04/24/18 00:30 Urine Culture - Final Urine,Voided Klebsiella pneumoniae 04/25/18 16:10 Gram Stain - Preliminary Buttock Wound Culture - Preliminary 04/25/18 16:10 Anaerobic Culture - Preliminary Buttock 04/23/18 14:40 Blood Culture - Preliminary Blood No Growth after 48 hours 04/24/18 06:05 Gram Stain - Preliminary Back Wound Culture - Preliminary Strep agalactiae - (group b) Presumptive Staph aureus Assessment and Plan (1) Sacral decubitus ulcer, stage IV Narrative/Plan: Continue local wound care. Continue antibiotics. Current Visit: Yes Status: Acute Code(s): L89.154 - PRESSURE ULCER OF SACRAL REGION, STAGE 4 SNOMED Code(s): 487843649
[2018-04-26 12:21] LABS: Glucose,Whole Blood 133 mg/dL (75-99)
[2018-04-26 16:53] LABS: Glucose,Whole Blood 119 mg/dL (75-99)
--- NOTE | 2018-04-26 17:16 | PN ---
PROGRESS NOTE DATE OF SERVICE: 04/26/2018. PRESENT COMPLAINT: Infected decubitus ulcer. INTERVAL HISTORY: This patient has spina bifida and paraplegia presented with large infected sacral decubitus ulcer status post debridement yesterday. Remains on IV antibiotics. Pain is controlled. Tolerating his diet. No fever. No chills. Lying in bed. REVIEW OF SYSTEMS: Done for constitutional, cardiovascular, GI, pulmonary, relevant findings as above. CURRENT MEDICATIONS: Reviewed that include IV vancomycin and Zosyn. PHYSICAL EXAMINATION: VITAL SIGNS: Temperature 98.2, pulse 72, respiration 12, blood pressure 129/84, pulse ox 97% on room air. GENERAL APPEARANCE: Lying in bed, awake. EYES: Pupils are equal. Conjunctivae normal. HEENT: External appearance of nose and ears normal. Oral cavity normal. NECK: JVD not raised. Mass not palpable. RESPIRATORY: Effort normal. LUNGS: Are clear. CARDIOVASCULAR: 1st and 2nd sounds normal. No edema. ABDOMEN: Soft, nontender. Liver and spleen not palpable. Suprapubic catheter in place. DERMATOLOGICAL: Sacral decubitus ulcer and right heel ulcer present. INVESTIGATIONS: White count 9, hemoglobin 9.8, potassium 4.4, BUN 13, creatinine 0.68, bicarb 18. ASSESSMENT: 1. Large sacral decubitus ulcer with secondary infection on broad-spectrum antibiotics, status post debridement. 2. Normocytic anemia probably from chronic decubitus ulcer. 3. Reactive thrombocytosis. 4. Hypokalemia corrected. 5. Possibly asymptomatic bacteriuria. 6. Chronic neurogenic bladder from spina bifida with suprapubic catheter. 7. Chronic paraplegia from spina bifida. 8. Chronic medical debility. 9. Right heel decubitus ulcer, present on admission. 10.Metabolic acidosis. PLAN: Continue current medication and treatment plan. Antibiotics per Infectious Disease. We will add sodium bicarbonate. Care was discussed with the patient. MMODL / IJN: [id number] /
[2018-04-26] MEDS: SODIUM BICARBONATE TAB 650 MG TAB PO SCH ×2 (17:20→21:02)
[2018-04-26 20:41] LABS: Glucose,Whole Blood 160 mg/dL (75-99)
[2018-04-26] MEDS: COLLAGENASE 250 UNIT/GM OINTMENT 30 GM TUBE TOPICAL SCH (20:52)
[2018-04-27] MEDS: Acetaminophen-Codeine 300-30mg TAB PO SCH ×6 (00:02→17:29)
[2018-04-27] MEDS: ACETAMINOPHEN TAB 325 MG TAB PO SCH ×4 (00:03→17:28)
[2018-04-27] MEDS: PIPERACILLIN-TAZOBACTAM 3.375 GM in SODIUM CHLORIDE 0.9% 100 ML IVPB SCH ×3 (00:03→16:14)
[2018-04-27] MEDS: SODIUM CHLORIDE 0.9% 1,000 ML IV SCH ×2 (07:18→13:53)
[2018-04-27] MEDS: VANCOMYCIN 1,000 MG in SODIUM CHLORIDE 0.9% 250 ML IVPB SCH ×2 (08:03→20:58)
[2018-04-27] MEDS: SODIUM BICARBONATE TAB 650 MG TAB PO SCH ×3 (08:04→20:58)
[2018-04-27 08:25] LABS: Anion Gap 5 mmol/L; Blood Urea Nitrogen 11 mg/dL (9-20); Calcium 10.1 mg/dL (8.4-10.2); Carbon Dioxide 17 mmol/L (22-30); Chloride 116 mmol/L (98-107); Glucose 86 mg/dL (74-99); Potassium 4.1 mmol/L (3.5-5.1); Sodium 138 mmol/L (137-145)
--- NOTE | 2018-04-27 15:34 | P.PN ---
Subjective Progress Note Date: 04/27/18 Principal diagnosis: Sacral decubitus ulcer Patient has no new complaints. He was having some serous drainage from the debridement site. He is afebrile. Denies pain. Objective - Vital Signs Vital signs: Vital Signs Temp 97.5 F L 04/27/18 15:00 Pulse 94 04/27/18 15:00 Resp 12 04/27/18 15:00 BP 143/83 04/27/18 15:00 Pulse Ox 99 04/27/18 15:00 Intake & Output 04/26/18 04/27/18 04/27/18 19:59 06:59 18:59 Intake Total 2290 Output Total Balance 2290 Weight 56 kg Intake: Intake, IV Titration 1250 Amount Piperacillin-Tazobactam 3 100 .375 gm In Sodium Chloride 0.9% 100 ml @ 25 mls/hr IVPB Q8HR [facility] Rx# :[id number] Sodium Chloride 0.9% 1, 900 000 ml @ 150 mls/hr IV . Q6H40M [facility] Rx#:[id number] Vancomycin 1,000 mg In 250 Sodium Chloride 0.9% 250 ml @ 125 mls/hr IVPB BID [facility] Rx#:[id number] Oral 1040 Output: Urine Other: Voiding Method Indwelling Catheter # Voids 0 - Exam Sacral decubitus wound evaluated. No necrotic tissue or fluctuance. Some serous drainage on the dressings. Nontender, no erythema - Labs CBC & Chem 7: 04/26/18 07:14 04/27/18 07:25 Labs: Abnormal Lab Results - Last 24 Hours (Table) 04/26/18 04/26/18 04/27/18 Range/Units 16:41 20:29 07:25 Chloride 116 H (98-107) mmol/L Carbon Dioxide 17 L (22-30) mmol/L POC Glucose (mg/dL) 119 H 160 H (75-99) mg/dL Microbiology - Last 24 Hours (Table) 04/24/18 06:05 Gram Stain - Final Back Wound Culture - Final Strep agalactiae - (group b) Staphylococcus aureus 04/24/18 06:05 Anaerobic Culture - Final Coccyx Anaerobic Gm Negative Bacilli 04/25/18 16:10 Gram Stain - Preliminary Buttock Wound Culture - Preliminary Gram Neg Bacilli Strep agalactiae - (group b) 04/23/18 14:40 Gram Stain - Preliminary Back Wound Culture - Preliminary Gram Neg Bacilli Strep agalactiae - (group b) Presumptive Staph aureus 04/23/18 14:40 Blood Culture - Preliminary Blood No Growth after 72 hours Assessment and Plan (1) Sacral decubitus ulcer, stage IV Narrative/Plan: Continue local wound care. Continue antibiotics. Current Visit: Yes Status: Acute Code(s): L89.154 - PRESSURE ULCER OF SACRAL REGION, STAGE 4 SNOMED Code(s): 452423473
--- NOTE | 2018-04-27 18:53 | PN ---
PROGRESS NOTE DATE OF SERVICE: 04/27/18. PRESENT COMPLAINT: Infected decubitus ulcer. INTERVAL HISTORY: This patient has spina bifida, paraplegia, is pretty much bed bound. Presented with large infected sacral decubitus ulcer status post debridement. Had a wound dressing today done by Dr. Cartwright. No new issues. Tolerating a diet, having bowel movements. Patient has got a chronic suprapubic Haas catheter. REVIEW OF SYSTEMS: Done for constitutional, cardiovascular, GI, pulmonary; relevant findings as above. CURRENT MEDICATIONS: Reviewed that include IV vancomycin and Zosyn. PHYSICAL EXAMINATION: Temperature 98.1, pulse 94, respiration 14, blood pressure 123/81, pulse ox 96% on room air. GENERAL APPEARANCE: Sitting up in bed, awake. EYES: Pupils equal. Conjunctivae normal. HEENT: External appearance of nose and ears normal. Oral cavity normal. NECK: JVD not raised. Mass not palpable. RESPIRATORY: Effort normal. Lungs are clear. CARDIOVASCULAR: 1st and 2nd sounds, no edema. ABDOMEN: Soft, nontender. Liver and spleen not palpable. Suprapubic catheter in place. DERMATOLOGICAL: Sacral decubitus ulcer and right heel ulcer also present. INVESTIGATIONS: Potassium 4.1, bicarb 17, BUN 11, creatinine 0.71. ASSESSMENT: 1. Large sacral decubitus ulcer with secondary infection on broad-spectrum antibiotics, status post debridement. 2. Normocytic anemia probably from chronic decubitus ulcer. 3. Reactive thrombocytosis. 4. Hypokalemia corrected. 5. Possible asymptomatic bacteriuria. 6. Chronic neurogenic bladder from spina bifida with suprapubic catheter. 7. Chronic paraplegia from spina bifida. 8. Chronic medical debility. 9. Right heel decubitus ulcer, present on admission. 10.Metabolic acidosis. PLAN: Continue current medications and treatment plan. Antibiotics per Dr. Walker. Follow. Care was discussed with the patient. MMODL / IJN: [id number] /
[2018-04-27] MEDS: COLLAGENASE 250 UNIT/GM OINTMENT 30 GM TUBE TOPICAL SCH (20:45)
--- NOTE | 2018-04-27 23:17 | PN ---
PROGRESS NOTE DATE OF SERVICE: 04/27/2018. REASON FOR FOLLOWUP VISIT: Sacral osteomyelitis. INTERVAL HISTORY: The patient is afebrile. The patient did have a surgical debridement of a sacral wound on Saturday. The patient tolerated the procedure. The patient currently denies having any chest pain. No shortness of breath or cough or any diarrhea. EXAMINATION: Blood pressure 159/84 with a pulse of 80, temperature 98.4. He is 97% on room air. GENERAL DESCRIPTION: An elderly male lying in bed in no distress. RESPIRATORY SYSTEM: Unlabored breathing. Clear to auscultation anteriorly. HEART: S1, S2. Regular rate and rhythm. ABDOMEN: Soft, no tenderness. LABS: Hemoglobin is 9.8, white count of 9.0 with a BUN of 11, creatinine 0.71. Culture from the back wound is gram-negative strep and Staph aureus. DIAGNOSTIC IMPRESSION AND PLAN: 1. Patient with infected sacral pressure ulcer status post debridement. Currently covered with vancomycin which will be continued. He will need a PICC line for outpatient IV antibiotic therapy. 2. Positive urine culture with ESBL Klebsiella, could be E coli as the patient does have chronic indwelling Haas catheter. This has been changed and UA was not significantly positive. No need for any systemic antibiotic therapy for the same. Continue supportive care. MMODL / IJN: [id number] /
[2018-04-28] MEDS: PIPERACILLIN-TAZOBACTAM 3.375 GM in SODIUM CHLORIDE 0.9% 100 ML IVPB SCH ×2 (00:31→07:35)
[2018-04-28] MEDS: ACETAMINOPHEN TAB 325 MG TAB PO SCH ×4 (00:33→18:04)
[2018-04-28] MEDS: Acetaminophen-Codeine 300-30mg TAB PO SCH ×7 (00:34→22:56)
[2018-04-28] MEDS ORDERED: VANCOMYCIN TROUGH DUE 1 EACH MISC MISCELLANE ONE (08:00)
[2018-04-28] MEDS: SODIUM BICARBONATE TAB 650 MG TAB PO SCH ×3 (08:20→22:56)
[2018-04-28] MEDS: VANCOMYCIN 1,000 MG in SODIUM CHLORIDE 0.9% 250 ML IVPB SCH (08:25)
--- NOTE | 2018-04-28 13:16 | CDI ---
Last Revision, May 2017 Documentation Clarification Form Date: 04/28/18 From: Jannet Banegas RN Admit Date: 04/23/2018 3:54:00 PM Patient Name: Orlando Malcolm Visit Number: [id number] ATTENTION: The Clinical Documentation Specialists (CDI) and [facility] Coding Staff appreciate your assistance in clarifying documentation. Please respond to the clarification below the line at the bottom and electronically sign. The CDI & [facility] Coding staff will review the response and follow-up if needed. Please note: Queries are made part of the Legal Health Record. If you have any questions, please contact the author of this message via ITS. Mario Hawkins MD, A diagnosis of UTI has been documented in the ED notes and as patient history. Patient admitted for infected sacral decubitus ulcer stage 4 and UTI History/Risk factors: HTN, UTI, neurogenic bladder, spinal bifid suprapubic catheter, lumbar sacral decubitus ulcers, ureteral stricture Per documentation in the ED notes and the H&P that this patient was admitted with and suprapubic catheter. Clinical Indicators: Urinalysis: protein trace, blood small, leukocyte esterase large, WBC clumps many, amorphous sediment occasional, urine bacteria moderate, hyaline casts 6 , urine mucus rare Urine culture: Klebsiella pneumoniae Lab results: WBC 14.2, RBC 3.85, HGB 10.7, PLT 497, SOD 133, K+ 5.7, BUN 35 Treatment: Ampicillin IVPB, Vancomycin IVPB, Piperacillin IVPB In your professional opinion, can you please clarify the etiology of the UTI, if known? Suprapubic catheter UTI not related to catheter/urostomy Other condition, please specify Unable to determine If an infective organism is present, please specify cause and effect relationship if applicable. asymtomatic bacteruria - no need for treatment/antibiotics SILVIAD
[2018-04-28] MEDS: AMPICILLIN-SULBACTAM 3 GM in SODIUM CHLORIDE 0.9% 100 ML IVPB SCH ×3 (14:20→23:17)
[2018-04-28] MEDS ORDERED: LIDOCAINE 1% INJ 10MG/ML (20 ML MDV) SQ ONE (14:50)
--- NOTE | 2018-04-28 18:40 | PN ---
PROGRESS NOTE DATE OF SERVICE: 04/28/2018 PRESENTING COMPLAINT: Infected decubitus ulcer. INTERVAL HISTORY: Patient has spina bifida, paraplegia, bed-bound. He presented with a large sacral decubitus ulcer and is status post debridement. Tolerating a diet. Doing well. Waiting for a PICC line today. The patient is also felt to have asymptomatic bacteria from Haas catheter, suprapubic type, that was changed. REVIEW OF SYSTEMS: Done for constitutional, cardiovascular, GI, pulmonary, dermatological; relevant findings as above. CURRENT MEDICATIONS: Reviewed. They include IV Unasyn. Vancomycin was discontinued. PHYSICAL EXAMINATION: Afebrile. Pulse 67, respiration 16, blood pressure 167/76, pulse ox 96%. GENERAL APPEARANCE: Sitting on bed. Comfortable. EYES: Pupils equal. Conjunctivae normal. HEENT: External appearance of nose and ears normal. Oral cavity normal. NECK: JVD not raised. Mass not palpable. RESPIRATORY: Effort normal. Lungs are clear. CARDIOVASCULAR: First and second sounds normal. No edema. ABDOMEN: Soft, non-tender. Liver and spleen not palpable. Suprapubic catheter in place. DERMATOLOGICAL: Sacral decubitus ulcer. Right heel ulcer is also present. INVESTIGATIONS: Wound is growing multiple organisms. ASSESSMENT: 1. Large sacral decubitus ulcer with secondary infection from multiple organisms, status post debridement, present on admission. 2. Normocytic anemia from chronic decubitus ulcer. 3. Reactive thrombocytosis. 4. Hypokalemia, corrected. 5. Asymptomatic bacteriuria secondary to Haas catheter that has been changed. No need for antibiotics for the same. 6. Chronic neurogenic bladder from spina bifida with suprapubic catheter. 7. Chronic paraplegia due to spina bifida. 8. Chronic medical debility. 9. Right heel decubitus ulcer, stage II, present on admission. 10.Metabolic acidosis. PLAN: Patient is getting a PICC line today. Care was discussed with the patient and Dr. Walker. He can be discharged tomorrow. MMODL / IJN: [id number] /
--- NOTE | 2018-04-28 18:41 | P.PN ---
Subjective Progress Note Date: 04/28/18 CHIEF COMPLAINT: Chronic sacral decubitus ulcer HISTORY OF PRESENT ILLNESS: The patient is a 58-year-old male with lifelong spina bifida. He has history of multiple skin grafts for a chronic sacral decubiti ulcer including debridements. He is now status post debridement of his sacral decubiti ulcer which results came back with multiple multidrug resistant organisms. He had placement of a PICC line. He is otherwise doing well. PHYSICAL EXAM: VITAL SIGNS: Currently stable. GENERAL: Well-developed in no acute distress. HEENT: No sclera icterus. Extraocular movements grossly intact. Moist buccal mucosa. Head is atraumatic, normocephalic. Hears conversational speech. No nasal drainage. NECK: Supple without lymphadenopathy. CHEST: Non-labored respirations and equal bilateral excursions. CARDIOVASCULAR: Regular rate with regular rhythm. Palpable 2+ radial pulses. ABDOMEN: Soft. Nondistended. No peritonitis. MUSCULOSKELETAL: No clubbing, cyanosis or edema. Hypoplasia of the bilateral lower extremity. NEUROLOGIC: No focal or lateralizing signs. Cranial nerves II through XII grossly intact. PSYCH: Appropriate affect. Alert and oriented to person, place and time. SKIN: Dressing clean dry and intact of the sacrum. LABS: Reviewed ASSESSMENT: 1. Chronic decubiti ulcer 2. Leukocytosis 3. Multidrug resistant organisms PLAN: 1. Wound care management per infectious disease and ophthalmologist retina specialist. 2. No additional surgical intervention needed. 3. Will follow as needed. Objective - Vital Signs Vital signs: Vital Signs Temp 98 F 04/28/18 14:36 Pulse 93 04/28/18 14:36 Resp 16 04/28/18 14:36 BP 144/84 04/28/18 14:36 Pulse Ox 100 04/28/18 14:36 Intake & Output 04/27/18 04/28/18 04/28/18 18:59 06:59 18:59 Intake Total 2290 2150 750 Output Total 975 1100 Balance 2290 1175 -350 Weight 56 kg 56 kg Intake: Intake, IV Titration 1250 2150 350 Amount Piperacillin-Tazobactam 3 100 100 100 .375 gm In Sodium Chloride 0.9% 100 ml @ 25 mls/hr IVPB Q8HR [facility] Rx# :[id number] Sodium Chloride 0.9% 1, 900 1800 000 ml @ 150 mls/hr IV . Q6H40M [facility] Rx#:[id number] Vancomycin 1,000 mg In 250 250 250 Sodium Chloride 0.9% 250 ml @ 125 mls/hr IVPB BID [facility] Rx#:[id number] Oral 1040 400 Output: Urine 975 1100 Other: Voiding Method Indwelling Catheter Indwelling Catheter Indwelling Catheter # Voids 0 0 - Labs CBC & Chem 7: 04/26/18 07:14 04/29/18 07:25 Labs: Microbiology - Last 24 Hours (Table) 04/23/18 14:40 Blood Culture - Preliminary Blood No Growth after 120 hours 04/23/18 14:40 Gram Stain - Final Back Wound Culture - Final Acinetobacter vania/haemol Strep agalactiae - (group b) Staphylococcus aureus 04/25/18 16:10 Gram Stain - Final Buttock Wound Culture - Final Hafnia alvei Strep agalactiae - (group b) Assessment and Plan (1) Sacral decubitus ulcer, stage IV Status: Acute Code(s): L89.154 - PRESSURE ULCER OF SACRAL REGION, STAGE 4 SNOMED Code(s): 488030708 (2) UTI (urinary tract infection) Status: Acute Code(s): N39.0 - URINARY TRACT INFECTION, SITE NOT SPECIFIED SNOMED Code(s): 36762019
[2018-04-28 19:42] VITALS: RESP 18
[2018-04-28] MEDS: COLLAGENASE 250 UNIT/GM OINTMENT 30 GM TUBE TOPICAL SCH (20:13)
--- NOTE | 2018-04-28 22:05 | PN ---
PROGRESS NOTE DATE OF SERVICE: 04/28/2018 REASON FOR FOLLOWUP: Sacral osteomyelitis with maría. INTERVAL HISTORY: The patient is afebrile; has been breathing comfortably. Denies having any chest pain, shortness of breath or cough. No abdominal pain or any worsening pain in the sacral wound area. PHYSICAL EXAMINATION: Blood pressure 154/75 with a pulse of 97, temperature 98.3. He is 100% on room air. General description is a middle-aged male lying in bed in no distress. RESPIRATORY SYSTEM: Unlabored breathing. Clear to auscultation anteriorly. HEART: S1, S2. Regular rate and rhythm. ABDOMEN: Soft. No tenderness. LABS: Wound culture with multiple pathogens. DIAGNOSTIC IMPRESSION AND PLAN: Patient with sacral osteomyelitis and wound culture with multiple pathogens, including streptococcus and likely Staphylococcus aureus, Acinetobacter baumannii. Antibiotic has been adjusted to Unasyn 3 grams q.6 and oral Cipro. Once he gets a PICC line he will be able to go back to the custodial. Local wound care with wound V.A.C. possibly. Continue with supportive care. MMODL / IJN: [id number] /
[2018-04-29] MEDS: ACETAMINOPHEN TAB 325 MG TAB PO SCH ×3 (00:45→13:01)
[2018-04-29] MEDS: Acetaminophen-Codeine 300-30mg TAB PO SCH ×5 (03:26→17:31)
[2018-04-29] MEDS: AMPICILLIN-SULBACTAM 3 GM in SODIUM CHLORIDE 0.9% 100 ML IVPB SCH ×3 (05:11→17:26)
[2018-04-29 08:21] LABS: Anion Gap 4 mmol/L; Blood Urea Nitrogen 10 mg/dL (9-20); Calcium 9.9 mg/dL (8.4-10.2); Carbon Dioxide 20 mmol/L (22-30); Chloride 115 mmol/L (98-107); Glucose 89 mg/dL (74-99); Potassium 3.8 mmol/L (3.5-5.1); Sodium 139 mmol/L (137-145)
[2018-04-29 09:03] LABS: C Reactive Protein 13.2 mg/L (<10.0)
[2018-04-29] MEDS: SODIUM BICARBONATE TAB 650 MG TAB PO SCH ×2 (10:44→17:26)
--- NOTE | 2018-04-29 11:04 | IR ---
EXAMINATION TYPE: IR cvc insert >=5 years DATE OF EXAM: 04/28/2018 COMPARISON: NONE CLINICAL HISTORY: infection Needs long-term intravenous access for antibiotics. PROCEDURE: After informed consent, the skin overlying the left brachial vein was localized with ultrasound and n oted to be compressible and patent. An ultrasound image was obtained and submitted on the patient's chart. The overlying skin was prepped and draped and Lidocaine was used for local anesthesia. A ski n iris was made with a scalpel. Access was gained to the vein under ultrasound guidance with a 21 ga uge needle and a 0.018 inch wire was advanced. Access site was dilated with Peel-Away sheath and cat heter tailored to the appropriate length and advanced such that the distal tip is at the cavoatrial j unction. Spot image was obtained verifying placement. Catheter was fixed to the skin and a sterile dressing was placed following hemostasis. Catheter was aspirated and flushed with saline. Patient w as discharged in stable condition without complication. Maximal barrier technique is utilized. Ultra sound image is documented on the chart. Ultrasound used with sterile technique. Fluoro time and fluoroscopic images submitted to document procedure: 283 intraoperative images docume nt the procedure, 0.7 minutes fluoroscopy time. IMPRESSION: STATUS POST ULTRASOUND AND FLUOROSCOPIC GUIDED PICC LINE PLACEMENT, READY FOR USE. THIS PROCEDURE WAS PERFORMED BY THE UNDERSIGNED.
[2018-04-29 15:35] VITALS: BP 161/75; PULSE 86; TEMP 98.4
--- NOTE | 2018-04-29 16:24 | DS ---
DISCHARGE SUMMARY DATE OF ADMISSION: 04/23/2018 DATE OF DISCHARGE: 04/29/2018. FINAL DIAGNOSES: 1. Acute sacral osteomyelitis and decubitus ulcer with infection from multiple organisms. 2. Normocytic anemia from chronic decubitus ulcer and osteomyelitis. 3. Reactive thrombocytosis. 4. Hypokalemia corrected. 5. Asymptomatic bacteriuria secondary to Haas catheter that has been changed. No need for antibiotics for the same. 6. Chronic neurogenic bladder from spina bifida with suprapubic catheter. 7. Chronic paraplegia due to spina bifida. 8. Chronic medical debility. 9. Right heel decubitus ulcer, stage II present on admission. 10.Metabolic acidosis. HOSPITAL COURSE: This is a very pleasant 58-year-old gentleman follows with Dr. Nam, who has got spina bifida and bilateral lower extremity weakness, presented with sacral decubitus ulcer that was getting worse, felt to be osteomyelitis acute. Cultures were positive for multiple organisms. The patient did go debridement of the wound by Dr. Woodson. I spoke to Dr. Walker today. The patient is stable to get discharge. The patient is otherwise doing well. The patient will have a wound VAC placed in the [facility]. PHYSICAL EXAMINATION: VITAL SIGNS: Temperature 98, pulse 98, respiratory 18, blood pressure 157/85. Pulse ox 98% on room air. LUNGS: Clear. Cardiovascular: 1st and 2nd sounds normal. Sacral decubitus ulcer, right heel ulcer. INVESTIGATIONS: Potassium 3.8, BUN 10, creatinine 0.61. Wound culture showed multiple organisms. DISCHARGE MEDICATIONS: 1. Santal topical q.h.s. 2. Prinivil 5 mg p.o. daily. 3. Magnesium oxide 25 mg p.o. daily. 4. Omeprazole 20 mg p.o. b.i.d. 5. Klor-Con 20 mEq p.o. daily. 6. Gas-X 125 mg q.8h p.r.n. 7. Tylenol #3 one tab q.4h. 8. Unasyn 3 g IV piggyback q.6h total of 126. 9. Ciprofloxacin 500 mg p.o. q.12, total of 84. 10.Sodium bicarb 1300 mg p.o. t.i.d. Labs, CBC, CMP weekly including ESR. DISPOSITION: [facility] on the [place]. Follow up with Dr. Nam in the ECF and follow up with Dr. Walker at the wound care center in 1 week. Discussion and discharge planning more than [address] Nam. MMFARHAT / ADITHYAN: [id number] /
--- NOTE | 2018-04-29 17:39 | PN ---
PROGRESS NOTE DATE OF SERVICE: 04/29/2018. REASON FOR FOLLOW UP: Infected sacral wound, possible osteomyelitis with polymicrobial maría. INTERVAL HISTORY: The patient is currently afebrile. He has been breathing comfortably. Denies having any chest pain, shortness of breath or cough. No abdominal pain or any diarrhea. He did get a PICC line. Currently waiting for the antibiotic regimen and possible discharge to the alf today. EXAMINATION: Blood pressure 151/75 with a pulse of 83, temperature 98.4. He is 98% on room air. General description is a middle-aged male lying in bed in no distress. Respiratory system: Unlabored breathing. Clear to auscultation anteriorly. Heart S1, S2 regular rate and rhythm. ABDOMEN: Soft. No tenderness LABS: BUN of 10, creatinine 0.64. Sedimentation rate is 63 with 13.2. DIAGNOSTIC IMPRESSION AND PLAN: Patient with infected sacral pressure ulcer, likely concern for underlying osteomyelitis. Patient did grow multiple pathogen including and MSSA. The patient at this time will be advised Unasyn 3 g every 6 in addition to the oral ciprofloxacin to finish course of therapy. Local wound care with wound VAC, black foam 125 mmHg, Saturday, Saturday, Saturday. Follow up in the office in 1 week. Questions and concerns were answered. MMODL / IJN: [id number] /
--- NOTE | 2018-05-07 07:27 | CDI ---
Last Revision, May 2017 Documentation Clarification Form Date: 05/07/18 From: Malena Edgar Jane Vicki, Regulatory Law Specialist Hours-8:30 am & 5 pm M-F Admit Date: 04/23/2018 3:54:00 PM Patient Name: Orlando Malcolm Visit Number: [id number] Discharge Date: 04/29/18 ATTENTION: The Clinical Documentation Specialists (CDI) and [facility] Coding Staff appreciate your assistance in clarifying documentation. Please respond to the clarification below the line at the bottom and electronically sign. The CDI & [facility] Coding staff will review the response and follow-up if needed. Please note: Queries are made part of the Legal Health Record. If you have any questions, please contact the author of this message via ITS. Mario Hawkins MD Conflicting documentation has been found in the medical record. Surgeon stated that the bone was palpitated through the muscle and did not show evidence of osteomyelitis or soft bone per operative report. See also CT pelvis , Superficial to this level there is abnormal thickening of the skin likely due to cellulitis. No definite periosteal new bone formation to suggest osteomyelitis. Per your discharge summary you state: acute sacral osteomyelitis and decubitus ulcer with infection from multiple organisms. History/Risk Factors: spina bifida w paralysis, hyperkalemia, neurogenic bladder , pressure ulcer R heel stage 2 Treatment: Excisional debridement and mechanical debridement, IV antibiotics In your opinion what is the most clinically appropriate diagnosis for this patient? Acute sacral osteomyelitis ruled out Acute sacral osteomyelitis ruled in Other explanation of clinical findings Unable to determine (no explanation for clinical findings) Please continue to document in your progress notes and discharge summary in order to capture severity of illness and risk of mortality. Include clinical findings that support your diagnosis. no sacral osteomyelitis. stage 4 sacral decubitus ulcer. MTDD
== END 2018-04-29 18:21 | DRG 580 ==
LOC: EC 13:56 → 4SSUR 15:54
PROVIDERS: ADMIT Hospitalist; ATTEND Hospitalist
PROC: 0KBP0ZZ Excision of Left Hip Muscle, Open Approach (ICD-10-PCS; 2018-04-25)
PROC: 0KDN0ZZ Extraction of Right Hip Muscle, Open Approach (ICD-10-PCS; 2018-04-25)
PROC: 02HV33Z Insertion of Infusion Device into Superior Vena Cava, Percutaneous Approach (ICD-10-PCS; principal; 2018-04-28 14:38)
DX: L89.154 Pressure ulcer of sacral region, stage 4 (principal); G82.20 Paraplegia, unspecified; E87.2 Acidosis; L02.818 Cutaneous abscess of other sites; E87.5 Hyperkalemia; L89.612 Pressure ulcer of right heel, stage 2; N31.9 Neuromuscular dysfunction of bladder, unspecified; D64.9 Anemia, unspecified; Q05.7 Lumbar spina bifida without hydrocephalus; R82.71 Bacteriuria; K21.9 Gastro-esophageal reflux disease without esophagitis; K44.9 Diaphragmatic hernia without obstruction or gangrene; I10 Essential (primary) hypertension; M19.91 Primary osteoarthritis, unspecified site; F10.11 Alcohol abuse, in remission; Z16.24 Resistance to multiple antibiotics; Z79.899 Other long term (current) drug therapy; Z74.01 Bed confinement status; Z90.49 Acquired absence of other specified parts of digestive tract; Z97.2 Presence of dental prosthetic device (complete) (partial); Z87.891 Personal history of nicotine dependence; Z85.828 Personal history of other malignant neoplasm of skin; Z87.440 Personal history of urinary (tract) infections; Z80.3 Family history of malignant neoplasm of breast; Y84.6 Urinary catheterization as the cause of abnormal reaction of the patient, or of later complication, without mention of misadventure at the time of the procedure
CPT/HCPCS: 36415; 36569; 71046; 74177; 76937; 77001; 80048; 80053; 80202; 81001; 82550; 82553; 83605; 83735; 84100; 84484; 85025; 85610; 85652; 85730; 86140; 87040; 87070; 87075; 87077; 87086; 87186; 87205; 93005; 96360; 96361; 96365; 96366; 99285

== ENCOUNTER → 2019-12-01 | Outpatient (CLI) | payer MEDICARE, OTHER ==
[2019-12-01 14:00] LABS: African American GFR (CKD) >90 (>60 ml/min/1.73 sqM); Blood Urea Nitrogen 22 mg/dL (9-20); Non-African American GFR(CKD) >90 (>60 ml/min/1.73 sqM)
--- NOTE | 2019-12-01 14:42 | CT ---
EXAMINATION TYPE: CT abdomen pelvis w con DATE OF EXAM: 12/01/2019 COMPARISON: Follow up Cancer HISTORY: Follow up Cancer CT DLP: 1632.8 mGycm Automated exposure control for dose reduction was used. CONTRAST: CT scan of the abdomen pelvis is performed with IV Contrast, patient injected with 100 mL of Isovue 3 00. FINDINGS- LUNG BASES subsegmental consolidation in the lungs most typical of atelectasis.. LIVER/GB- No gross abnormality is appreciated. PANCREAS- No gross abnormality is seen. SPLEEN- No gross abnormality is seen. ADRENALS- No gross abnormality is seen. KIDNEYS/BLADDER-there is moderate to severe left hydronephrosis extending to the level of the UVJ. Th ere appears to be a cystostomy tube. Air in the bladder and thickening of the wall of the bladder not ed. Suspect the tube may extend into the ureter result in the degree of obstruction of the ureter.. H yperdensity adjacent the left renal pelvis more likely is metallic than related to stone. BOWEL- no bowel dilatation. Normal appendix. LYMPH NODES- No greater than 1cm abdominal or pelvic lymph nodes areappreciated. OSSEOUS STRUCTURES-postsurgical changes involving the vertebral column. OTHER- severe arthropathy of the hips are noted. There is soft tissue thickening along the left sacr um which could be related to a pressure wound correlate clinically. Extends centrally to the sacrum c orrelate for decubitus ulcer. Chronic deformity of the skeletal system noted. This includes the verte bral column and hip joints. Muscular atrophy noted. IMPRESSION- 1. There is a severe left hydronephrosis and hydroureter to level the UVJ. There is a cystostomy tube which does extend near the orifice of the left ureter may be contributing to the degree of obstructi on of the left ureter. Correlate clinically. 2. Chronic appearing skeletal deformities with soft tissue thickening along the sacrum correlate for decubitus ulcer.
== END | disposition home or self-care (01) ==
LOC: RADCTMAIN 12:02
PROVIDERS: ATTEND Urology
DX: N13.30 Unspecified hydronephrosis (principal); M79.9 Soft tissue disorder, unspecified; C68.0 Malignant neoplasm of urethra; N30.20 Other chronic cystitis without hematuria; Z87.440 Personal history of urinary (tract) infections
CPT/HCPCS: 82565; 84520; 74177; 36415; Q9967

== ENCOUNTER → 2020-09-19 | Outpatient (CLI) | payer MEDICARE, OTHER ==
--- NOTE | 2020-09-19 16:22 | XR ---
IVP WITHOUT TOMOGRAMS: CLINICAL HISTORY: Microhematuria. Technique: Following intravenous administration of 100 cc Omnipaque 300, multiple spot images are obt ained. COMPARISON: None. There is marked scoliosis noted of the lumbar spine with changes of spina bifida. Following intravenous administration of contrast material, sequential films of the abdomen were obtai slim. There is prompt excretion of contrast from the right kidney which is normal size and morphology. The left kidney demonstrates mild delayed excretion with hydronephrosis noted moderate in degree. T he left ureter is poorly visualized during the course of the examination. The right ureter is ectatic however not dilated at this time. The urinary bladder is noted to be small in size. A suprapubic cat heter is identified. Following drainage via the suprapubic catheter, contrast is visualized within th e urinary bladder. Residual contrast is seen within the left pelvicalyces. IMPRESSION: Moderate hydronephrosis of the left renal collecting system of uncertain etiology and location given poor visualization of the left ureter.
== END | disposition home or self-care (01) ==
LOC: RADFLMAIN 09:47
PROVIDERS: ATTEND Urology
DX: N13.30 Unspecified hydronephrosis (principal)
CPT/HCPCS: 74400; Q9967

== ENCOUNTER → 2020-11-17 | Outpatient (CLI) | payer MEDICARE, OTHER ==
[2020-11-17 12:42] LABS: Basophils # (A) 0.1 k/uL (0-0.2); Basophils % (A) 1 %; Eosinophils # (A) 0.5 k/uL (0-0.7); Eosinophils % (A) 4 %; HCT 42.1 % (39.0-53.0); HGB 13.4 gm/dL (13.0-17.5); Lymphocytes # (A) 1.5 k/uL (1.0-4.8); Lymphocytes % (A) 12 %; MCH 27.3 pg (25.0-35.0); MCHC 31.7 g/dL (31.0-37.0); MCV 86.1 fL (80.0-100.0); Monocytes # (A) 0.8 k/uL (0-1.0); Monocytes % (A) 6 %; Neutrophils # (A) 9.2 k/uL (1.3-7.7); Neutrophils % (A) 74 %; Platelet Count 369 k/uL (150-450); RBC 4.89 m/uL (4.30-5.90); RDW 13.9 % (11.5-15.5); WBC 12.4 k/uL (3.8-10.6)
[2020-11-17 12:50] LABS: Amorphous Sediment,Urine Moderate /hpf; Appearance,Urine Turbid (Clear); Bacteria,Urine Many /hpf; Bilirubin,Urine Negative (Negative); Blood,Urine Trace (Negative); Color,Urine Yellow; Glucose,Urine (UA) Negative (Negative); Ketones,Urine Negative (Negative); Leukocyte Esterase,Urine Large (Negative); Nitrite,Urine Positive (Negative); PH, Urine 7.5 (5.0-8.0); Protein,Urine 1+ (Negative); RBC,Urine 46 /hpf (0-5); Specific Gravity,Urine 1.015 (1.001-1.035); Urobilinogen,Urine <2.0 mg/dL (<2.0); WBC,Urine >182 /hpf (0-5)
[2020-11-17 13:20] LABS: Calcium 10.1 mg/dL (8.4-10.2); Potassium 4.2 mmol/L (3.5-5.1)
== END | disposition home or self-care (01) ==
LOC: LABPAT 11:22
PROVIDERS: ATTEND Urology
DX: Z01.812 Encounter for preprocedural laboratory examination (principal); N13.30 Unspecified hydronephrosis; N39.0 Urinary tract infection, site not specified
CPT/HCPCS: 36415; 80048; 81001; 85025; 87077; 87086; 87186

== ENCOUNTER → 2020-11-25 | Day surgery (SDC) | payer MEDICARE, OTHER ==
[2020-11-23 15:37] VITALS: BMI 29.2
[~2020-11-25] MED LIST: DEXAMETHASONE SOD PHOSPHATE 4 MG/ML 1 ML VIAL IV ONE; GENTAMICIN 120 MG in SODIUM CHLORIDE 0.9% 100 ML IVPB PRN; HYDROmorphone 0.5 MG/0.5 ML SYRINGE IVP PRN; IOPAMIDOL-370 50ML BTL MISCELLANE ONE; LACTATED RINGERS 1,000 ML IV ONE; LACTATED RINGERS 1,000 ML IV SCH; LIDOCAINE 1% (10MG/ML) FOR IV START INTRADERMA ONE; LIDOCAINE 1% INJ 10MG/ML (20 ML MDV) ONE; MIDAZOLAM 2 MG/2 ML VIAL IV PRN; MIDAZOLAM 2 MG/2 ML VIAL ONE; ONDANSETRON 4 MG/2 ML VIAL IVP ONE; PHENYLEPHRINE-0.9% NACL SYG 1,000 MCG/10 ML SYRINGE ONE; PROPOFOL 10 MG/ML 20 ML VIAL IV ONE; SCOPOLAMINE 1.5MG/72HR PATCH TRANSDERM ONE; fentaNYL (PF) 50 MCG/ML 2 ML AMP ONE
[2020-11-25 15:02] VITALS: RESP 16; TEMP 98.4
--- NOTE | 2020-11-25 17:37 | P.HPIHPCON ---
History of Present Illness H&P Date: 11/25/20 Chief Complaint: Left hydronephrosis This is a 60-year-old male with history of spina bifida, he is wheelchair-bound. 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 His bladder is currently being managed by suprapubic tube. He has history of left sided hydronephrosis, had an IVP done showed drainage of contrast from the left side. Discussed with him given his history of urothelial carcinoma recommend further evaluating his left hydronephrosis. Discussed the option of doing a left retrograde pyelogram, Possible ureteroscopy. Discussed given that his urethra strictured off, we will attempt to do the retrograde pyelogram through the suprapubic tube, there is a potential I may not be able to intubate the ureteral orifice through the suprapubic tube. Discussed the risk which includes but not limited to bleeding, infection, injury to the ureter. Discussed the potential this may be nondiagnostic and he might need further surgeries in the future. He understood all the risk and agreed to proceed Consent for Procedure: I have explained the operation/procedure to the patient, including the risks, benefits, side effects, alternative therapies (including not receiving the proposed treatment or service), the likelihood of the patient achieving his/her goals, and potential recuperation problems for the procedure/sedation/analgesia, as well as any blood products, if indicated. I also explained to the patient the risks, benefits and side effects of the alternatives, as well as the risks related to not receiving the proposed procedure, care, treatment, or services. 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", hx skin cancer on back, hx urethral cancer History of Any Multi-Drug Resistant Organisms: ESBL, MRSA, Other MDRO Date of last positivie culture/infection: 11/17/20 ESBL; 7/26/10 MRSA MDRO Source:: ECBL-Urine; MRSA Unknonw Past Surgical History: Cholecystectomy Additional Past Surgical History / Comment(s): multiple sx-skin grafts for spina bifida, cystocopy for urethral stricture, Kidney surgery pt stated "it was teri like an aneurysm near kidney they put a stent in", suprapubic catheter , sx to stretch lt leg muscle, skin ca removed from lower back, Past Anesthesia/Blood Transfusion Reactions: No Reported Reaction Additional Past Anesthesia/Blood Transfusion Reaction / Comment(s): . Smoking Status: Current every day smoker - Past Family History Mother Family Medical History: Cancer Additional Family Medical History / Comment(s): breast cancer, leukemia Sister(s) Family Medical History: Cancer Additional Family Medical History / Comment(s): breast cancer Father Family Medical History: Cancer Medications and Allergies Home Medications Medication Instructions Recorded Confirmed Type Ciprofloxacin HCl [Cipro] 500 mg PO Q12HR #84 tablet 04/29/18 11/23/20 Rx Metoprolol Succinate (ER) [Toprol 25 mg PO BID 11/23/20 11/23/20 History Xl] Sulfamethoxazole/Trimethoprim 1 each PO BID 11/23/20 11/23/20 History [Sulfamethoxazole-Tmp Ds Tablet] Triamterene/Hydrochlorothiazid 1 each PO QAM 11/23/20 11/23/20 History [Triamterene-Hctz 37.5-25 mg Tb] Allergies Allergy/AdvReac Type Severity Reaction Status Date / Time No Known Allergies Allergy Verified 11/23/20 14:12 Surgical - Exam Vital Signs Temp Pulse Resp BP Pulse Ox 98.4 F 107 H 16 167/67 97 11/25/20 15:00 11/25/20 15:00 11/25/20 15:00 11/25/20 15:00 11/25/20 15:00 - General well developed, well nourished, no distress - Eyes normal ocular movement, no icteric - ENT no hearing loss, no congestion - Respiratory normal respiratory effort, clear to auscultation - Psychiatric oriented to time, oriented to person, oriented to place Assessment and Plan Assessment: 60-year-old male with history of left sided hydronephrosis -Or for cystoscopy, left-sided, possible ureteroscopy and possible stent placement
--- NOTE | 2020-11-25 19:22 | P.OP ---
Date of Procedure: 11/25/20 Preoperative Diagnosis: Left hydronephrosis Postoperative Diagnosis: Same Procedure(s) Performed: Cystoscopy, left retrograde pyelogram, suprapubic catheter change Implants: None Anesthesia: PRISCILAA Surgeon: Dar Sorensen Estimated Blood Loss (ml): 1 Pathology: none sent Condition: stable Disposition: PACU Indications for Procedure: This is a 60-year-old male with history of spina bifida, he is wheelchair-bound. 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 His bladder is currently being managed by suprapubic tube. He has history of left sided hydronephrosis, had an IVP done showed drainage of contrast from the left side. Discussed with him given his history of urothelial carcinoma recommend further evaluating his left hydronephrosis. Discussed the option of doing a left retrograde pyelogram, Possible ureteroscopy. Discussed given that his urethra strictured off, we will attempt to do the retrograde pyelogram through the suprapubic tube, there is a potential I may not be able to intubate the ureteral orifice through the suprapubic tube. Discussed the risk which includes but not limited to bleeding, infection, injury to the ureter. Discussed the potential this may be nondiagnostic and he might need further surgeries in the future. He understood all the risk and agreed to proceed Operative Findings: Normal cystoscopy, evidence of catheter cystitis, left ureteral orifice was identified, unable to advance a wire past it left retrograde pyelogram was performed which showed minimal contrast seen going up the UVJ Description of Procedure: Patient was brought to the operating room, general anesthesia was induced. He was prepped and draped in sterile fashion a placement dorsal lithotomy position. The suprapubic tube was removed and a flexible cystoscopy was inserted through the tract, cystoscopy was performed showed no abnormality within the bladder, the scope was advanced through the prostate which showed complete obstruction of the urethra distal to that. The right ureteral orifice was visualized, left ureteral orifice was also visualized but catheter cystitis made visualization very difficult. I attempted to intubate the left UO with a sensor wire but was not able to advance the wire past the UVJ. At this time a flexible ureteroscope was inserted, and I attempted to again intubate the ureteral orifice with a sensor wire but resistance was met. At this time the ureteroscope was advanced into the UVJ, no clear opening could be seen. Contrast was injected through the ureteroscope and only minimal amount of contrast visualized going up the left ureter. I Again attempted to pass a wire through the ureteroscope and this was unsuccessful. At this time the ureteroscope was withdrawn, and a 20-Greenlandic suprapubic tube was placed with return of clear urine. The patient tolerated the procedure well was taken to PACU in stable condition
[2020-11-25 20:06] VITALS: BP 133/76; PULSE 90
--- NOTE | 2020-11-28 07:08 | FL ---
EXAMINATION TYPE: FL urography retrograde DATE OF EXAM: 11/25/2020 COMPARISON: NONE HISTORY: Bladder calculi TECHNIQUE: Fluoroscopy. FINDINGS: Fluoroscopic guidance was provided during cystoscopy procedure performed by Dr. Pedro. A total of 18 seconds of fluoroscopic time was utilized during the procedure and 1 spot intraoperative image is acquired. Single image acquired shows contrast opacification of bladder in the pelvis overl jf Pubic symphysis. IMPRESSION: As Above.
== END ==
LOC: OR 14:17
PROVIDERS: ATTEND Urology
DX: N13.30 Unspecified hydronephrosis (principal); K21.9 Gastro-esophageal reflux disease without esophagitis; I10 Essential (primary) hypertension; M19.90 Unspecified osteoarthritis, unspecified site; Q05.9 Spina bifida, unspecified; Z99.3 Dependence on wheelchair; Z85.59 Personal history of malignant neoplasm of other urinary tract organ; Z90.79 Acquired absence of other genital organ(s); N35.919 Unspecified urethral stricture, male, unspecified site; Z20.822 Contact with and (suspected) exposure to COVID-19; L89.149 Pressure ulcer of left lower back, unspecified stage; K44.9 Diaphragmatic hernia without obstruction or gangrene; N31.9 Neuromuscular dysfunction of bladder, unspecified; L98.499 Non-pressure chronic ulcer of skin of other sites with unspecified severity; Z96.0 Presence of urogenital implants; N28.89 Other specified disorders of kidney and ureter; F17.210 Nicotine dependence, cigarettes, uncomplicated; Z87.01 Personal history of pneumonia (recurrent); Z87.440 Personal history of urinary (tract) infections; Z85.828 Personal history of other malignant neoplasm of skin; Z86.14 Personal history of Methicillin resistant Staphylococcus aureus infection; Z83.1 Family history of other infectious and parasitic diseases; Z90.49 Acquired absence of other specified parts of digestive tract; Z98.890 Other specified postprocedural states; Z80.3 Family history of malignant neoplasm of breast; Z80.6 Family history of leukemia; Z80.9 Family history of malignant neoplasm, unspecified; Z79.899 Other long term (current) drug therapy
CPT/HCPCS: 52332; 87635; 74420; C1758; C1769; J2250; J1100; J0690; J2405; J2001; J3010; J1580; J2370; J2704; Q9967

== ENCOUNTER → 2022-07-06 | Outpatient (CLI) | payer MEDICARE, OTHER ==
--- NOTE | 2022-07-06 15:43 | NM ---
EXAMINATION TYPE: NM bone 3 phase DATE OF EXAM: 07/06/2022 COMPARISON: NONE HISTORY: 62-year-old male, pressure ulcer of the left hip, open sore, posterolateral aspect. Technique: Triple phase bone scintigraphy was performed following the injection of 23.2 mCi Tc 99m MD Ghulam. Immediate images and 4 hours post injection images acquired. Imaging centered at the pelvis. FINDINGS: Flow images posteriorly of the pelvis show asymmetric hyperemia along the lateral aspect of the left hip. Corresponding abnormal increased tracer activity here within the soft tissues on pool images. The und erlying proximal femur shows asymmetric increased activity as well. On delayed scan, focal increased activity in the region of the left greater trochanter. Haas cathete r is present. Suspect urinary contamination. IMPRESSION: 1. Abnormal activity involving the lateral left hip soft tissues on both flow and pool suggesting sof t tissue infection/ulcer. 2. Increased activity at the left greater trochanter on both pool and delayed images underlying the p atient's wound. Findings may be seen with osteomyelitis. Clinically correlate.
== END | disposition home or self-care (01) ==
LOC: RADNMMAIN 06:54
PROVIDERS: ATTEND Thoracic Surgery (Cardiothoracic Vascular Surgery)
DX: L89.223 Pressure ulcer of left hip, stage 3 (principal); Q76.0 Spina bifida occulta
CPT/HCPCS: 78315; A9503

== ENCOUNTER 2023-08-28 17:29 | Observation (INO) | payer MEDICARE, OTHER ==
--- NOTE | 2023-08-28 17:53 | ED ---
Male Urogenital HPI - General Source: patient, RN notes reviewed Mode of arrival: wheelchair Limitations: physical limitation <Bambi Lauren - Last Filed: 08/28/23 17:52> <Roshan Elias - Last Filed: 08/28/23 21:19> - General Stated complaint: Bladder Infection, suppose to get Picc Line Time Seen by Provider: 08/28/23 17:52 - History of Present Illness Initial comments: Quick note: Patient is a 63-year-old male presented to ER with chief complaint of a UTI. Patient sent here for IV antibiotics by PCP. Patient also reports he is supposed to get a PICC line. (Bambi Lauren) 63-year-old male with a past medical history significant for spina bifida and prior resistant UTIs presenting to the ED with a chief complaint of UTI. Patient normally does not have sensation of his genital region. Reports approxi mately a week ago saw his PCP due to to some cloudy urine. No hematuria. No abdominal pain. No fever or chills. Reports that his PCP called him back today and advised him to present to the ED as he was found to have a resistant organism on urine culture. Culture positive for Klebsiella oxytoca. No other complaints at this time. (Roshan Elias) - Related Data Home Medications Medication Instructions Recorded Confirmed Metoprolol Succinate (ER) [Toprol 25 mg PO BID 11/23/20 08/15/22 XL] Triamterene/Hydrochlorothiazid 1 tab PO DAILY 11/23/20 08/15/22 [Triamterene-Hctz 37.5-25 mg Tb] Pantoprazole [Protonix] 40 mg PO DAILY PRN 08/15/22 08/15/22 Previous Rx's Medication Instructions Recorded Cholestyramine (with Sugar) 4 gm PO BID@1000,1800 30 Days #60 08/20/22 [Questran Packet] packet Ertapenem [INVanz] 1 gm IVPB DAILY@1300 7 Days #7 each 08/20/22 Allergies Allergy/AdvReac Type Severity Reaction Status Date / Time No Known Allergies Allergy Verified 08/28/23 18:16 Review of Systems ROS Other: All systems not noted in ROS Statement are negative. <Bambi Lauren - Last Filed: 08/28/23 17:52> ROS Other: All systems not noted in ROS Statement are negative. <MariebolaRoshan dougherty - Last Filed: 08/28/23 21:19> ROS Statement: Those systems with pertinent positive or pertinent negative responses have been documented in the HPI. 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", hx skin cancer on back, hx urethral cancer History of Any Multi-Drug Resistant Organisms: ESBL, MRSA, Other MDRO Date of last positivie culture/infection: 09/27/22 ESBL; 01/16/10 MRSA MDRO Source:: Urine-ESBL Past Surgical History: Cholecystectomy Additional Past Surgical History / Comment(s): multiple sx-skin grafts for spina bifida, cystocopy for urethral stricture, Kidney surgery pt stated "it was teri like an aneurysm near kidney they put a stent in", suprapubic catheter , sx to stretch lt leg muscle, skin ca removed from lower back, Past Anesthesia/Blood Transfusion Reactions: No Reported Reaction Additional Past Anesthesia/Blood Transfusion Reaction / Comment(s): . Past Psychological History: No Psychological Hx Reported Smoking Status: Current every day smoker Past Alcohol Use History: Occasional Additional Past Alcohol Use History / Comment(s): started smoking 1973, 2 packs last 1 week Past Drug Use History: Marijuana Additional Drug Use History / Comment(s): CBD oil - Past Family History Mother Family Medical History: Cancer Additional Family Medical History / Comment(s): breast cancer, leukemia Sister(s) Family Medical History: Cancer Additional Family Medical History / Comment(s): breast cancer Father Family Medical History: Cancer <Bambi Lauren - Last Filed: 08/28/23 17:52> General Exam <Bambi Lauren - Last Filed: 08/28/23 17:52> Limitations: physical limitation General appearance: alert Eye exam: Present: normal appearance Respiratory exam: Present: normal lung sounds bilaterally Cardiovascular Exam: Present: regular rate, normal rhythm GI/Abdominal exam: Present: soft (No tenderness to palpation. No rebound guarding or rigidity.) Neurological exam: Present: alert, oriented X3 Skin exam: Present: warm, dry <Roshan Elias - Last Filed: 08/28/23 21:19> - General Exam Comments Initial Comments: Visual Physical Exam Vital signs reviewed General: Well-appearing, nontoxic, no acute distress. Patient in wheelchair Head: Normocephalic, atraumatic Eyes: PERRLA, EOMI ENT: Airway patent Chest: Nonlabored breathing Skin: No visual rash, normal skin tone Neuro: Alert and oriented 3 Musculoskeletal: No gross abnormalities (Bambi Lauren) Course Vital Signs 08/28/23 08/28/23 18:06 21:16 Temperature 98.8 F Pulse Rate 85 80 Respiratory 18 18 Rate Blood Pressure 146/75 138/76 O2 Sat by Pulse 96 97 Oximetry Medical Decision Making <Bambi Lauren - Last Filed: 08/28/23 17:52> - Lab Data Result diagrams: 08/28/23 20:00 08/28/23 20:00 <Roshan Elias - Last Filed: 08/28/23 21:19> - Medical Decision Making I performed the quick note portion of this chart. Electronically signed by Bambi Lauren PA-C (Bambi Lauren) Was pt. sent in by a medical professional or institution ([facility] Arevalo, [employer], urgent care, hospital, or snf...) When possible be specific @ -No Did you speak to anyone other than the patient for history (EMS, parent, family, police, friend...)? What history was obtained from this source @ -No Did you review nursing and triage notes (agree or disagree)? Why? @ -I reviewed and agree with nursing and triage notes Were old charts reviewed (outside hosp., previous admission, EMS record, old EKG, old radiological studies, urgent care reports/EKG's, snf records)? Report findings @ -Prior charts reviewed showing need for admission in the past secondary to resistant UTIs. Also reviewed urine culture which grew Klebsiella oxytoca. Differential Diagnosis (chest pain, altered mental status, abdominal pain women, abdominal pain men, vaginal bleeding, weakness, fever, dyspnea, syncope, headache, dizziness, GI bleed, back pain, seizure, CVA, palpatations, mental health, musculoskeletal)? @ -Differential Abdominal Pain Men: Appendicitis, cholecystitis, diverticulosis, ischemic bowel, pancreatitis, hepatitis, UTI, gastroenteritis, AAA, incarcerated hernia, bowel obstruction, constipation, inflammatory bowel, hepatitis, peptic ulcer disease, splenic infarction, perforated viscus, testicular torsion, this is not meant to be an all-inclusive list EKG interpreted by me (3pts min.). @ -None X-rays interpreted by me (1pt min.). @ -None done CT interpreted by me (1pt min.). @ -None done U/S interpreted by me (1pt. min.). @ -None done What testing was considered but not performed or refused? (CT, X-rays, U/S, labs)? Why? @ -None What meds were considered but not given or refused? Why? @ -None Did you discuss the management of the patient with other professionals (professionals i.e. , PA, [employer], lab, RT, psych nurse, adoption social worker, district wildlife manager, teacher, consular officer, sample case porter)? Give summary @ -Case discussed with Shannon Dan of [facility] who accepts admission. Was smoking cessation discussed for >3mins.? @ -No Was critical care preformed (if so, how long)? @ -No Were there social determinants of health that impacted care today? How? (Homelessness, low income, unemployed, alcoholism, drug addiction, hall sportation, low edu. Level, literacy, decrease access to med. care, halfway, rehab)? @ -No Was there de-escalation of care discussed even if they declined (Discuss DNR or withdrawal of care, Hospice)? DNR status @ -No What co-morbidities impacted this encounter? (DM, HTN, Smoking, COPD, CAD, Cancer, CVA, ARF, Chemo, Hep., AIDS, mental health diagnosis, sleep apnea, morbid obesity)? @ -Spina bifida Was patient admitted / discharged? Hospital course, mention meds given and route, prescriptions, significant lab abnormalities, going to OR and other pertinent info. @ -Admission 63-year-old male with a past medical history significant for spina bifida and pr ior resistant UTIs presenting to the ED today as he had cloudy urine approximately a week ago and had a urine culture performed by his PCP. Was instructed to present to the ED today as this grew out K. oxytoca. Laboratory studies reviewed. CBC significant for an elevated white blood cell count at 13.1. Chemistry panel significant for an elevated BUN at 32 creatinine at 1.27. GFR 59. UA does show evidence of infection with large leukocyte esterase, 17 white blood cells, and many bacteria. Patient will be admitted with consults to Dr. Sorensen of urology Dr. Walker of infectious disease. Undiagnosed new problem with uncertain prognosis? @ -No Drug Therapy requiring intensive monitoring for toxicity (Heparin, Nitro, Insulin, Cardizem)? @ -No Were any procedures done? @ -No Diagnosis/symptom? @ -Urinary tract infection Acute, or Chronic, or Acute on Chronic? @ -Acute Uncomplicated (without systemic symptoms) or Complicated (systemic symptoms)? @ -Complicated Side effects of treatment? @ -No Exacerbation, Progression, or Severe Exacerbation? @ -No Poses a threat to life or bodily function? How? (Chest pain, [place], [place], pneumonia, PE, COPD, DKA, ARF, appy, cholecystitis, CVA, Diverticulitis, Homicidal, Suicidal, threat to staff... and all critical care pts) @ -Possibly (Roshan Elias) - Lab Data Lab Results 08/28/23 08/28/23 08/28/23 Range/Units 20:00 20:00 20:00 WBC 13.1 H (3.8-10.6) k/uL RBC 4.94 (4.30-5.90) m/uL Hgb 14.2 (13.0-17.5) gm/dL Hct 43.8 (39.0-53.0) % MCV 88.7 (80.0-100.0) fL MCH 28.7 (25.0-35.0) pg MCHC 32.3 (31.0-37.0) g/dL RDW 14.0 (11.5-15.5) % Plt Count 265 (150-450) k/uL MPV 7.5 Sodium 137 (137-145) mmol/L Potassium 4.1 (3.5-5.1) mmol/L Chloride 107 (98-107) mmol/L Carbon Dioxide 22 (22-30) mmol/L Anion Gap 8 mmol/L BUN 32 H (9-20) mg/dL Creatinine 1.27 H (0.66-1.25) mg/dL Est GFR (CKD-EPI)AfAm 69 (>60 ml/min/1.73 sqM) Est GFR (CKD-EPI)NonAf 59 (>60 ml/min/1.73 sqM) Glucose 184 H (74-99) mg/dL Plasma Lactic Acid Ramsey (0.7-2.0) mmol/L Calcium 10.1 (8.4-10.2) mg/dL Total Bilirubin 0.4 (0.2-1.3) mg/dL AST 22 (17-59) U/L ALT 23 (4-49) U/L Alkaline Phosphatase 97 (38-126) U/L Total Protein 7.0 (6.3-8.2) g/dL Albumin 3.5 (3.5-5.0) g/dL Urine Color Light Yellow Urine Appearance Cloudy (Clear) Urine pH 7.0 (5.0-8.0) Ur Specific [place] 1.017 (1.001-1.035) Urine Protein Trace H (Negative) Urine Glucose (UA) Negative (Negative) Urine Ketones Negative (Negative) Urine Blood Small H (Negative) Urine Nitrite Positive (Negative) Urine Bilirubin Negative (Negative) Urine Urobilinogen <2.0 (<2.0) mg/dL Ur Leukocyte Esterase Large H (Negative) Urine RBC 29 H (0-5) /hpf Urine WBC 17 H (0-5) /hpf Urine Bacteria Many H (None) /hpf Urine Mucus Few H (None) /hpf 08/28/23 Range/Units 20:00 WBC (3.8-10.6) k/uL RBC (4.30-5.90) m/uL Hgb (13.0-17.5) gm/dL Hct (39.0-53.0) % MCV (80.0-100.0) fL MCH (25.0-35.0) pg MCHC (31.0-37.0) g/dL RDW (11.5-15.5) % Plt Count (150-450) k/uL MPV Sodium (137-145) mmol/L Potassium (3.5-5.1) mmol/L Chloride (98-107) mmol/L Carbon Dioxide (22-30) mmol/L Anion Gap mmol/L BUN (9-20) mg/dL Creatinine (0.66-1.25) mg/dL Est GFR (CKD-EPI)AfAm (>60 ml/min/1.73 sqM) Est GFR (CKD-EPI)NonAf (>60 ml/min/1.73 sqM) Glucose (74-99) mg/dL Plasma Lactic Acid Ramsey 1.4 (0.7-2.0) mmol/L Calcium (8.4-10.2) mg/dL Total Bilirubin (0.2-1.3) mg/dL AST (17-59) U/L ALT (4-49) U/L Alkaline Phosphatase (38-126) U/L Total Protein (6.3-8.2) g/dL Albumin (3.5-5.0) g/dL Urine Color Urine Appearance (Clear) Urine pH (5.0-8.0) Ur Specific [place] (1.001-1.035) Urine Protein (Negative) Urine Glucose (UA) (Negative) Urine Ketones (Negative) Urine Blood (Negative) Urine Nitrite (Negative) Urine Bilirubin (Negative) Urine Urobilinogen (<2.0) mg/dL Ur Leukocyte Esterase (Negative) Urine RBC (0-5) /hpf Urine WBC (0-5) /hpf Urine Bacteria (None) /hpf Urine Mucus (None) /hpf Disposition <Bambi Lauren - Last Filed: 08/28/23 17:52> Time of Disposition: 21:00 <Roshan Elias - Last Filed: 08/28/23 21:19> Clinical Impression: Urinary tract infection Disposition: ADMITTED IP TO THIS HOSP Condition: Good Referrals: Mayank Laurent MD [Primary Care Provider] - 1-2 days
[2023-08-28 20:25] LABS: HCT 43.8 % (39.0-53.0); HGB 14.2 gm/dL (13.0-17.5); MCH 28.7 pg (25.0-35.0); MCHC 32.3 g/dL (31.0-37.0); MCV 88.7 fL (80.0-100.0); Mean Platelet Volume 7.5; Platelet Count 265 k/uL (150-450); RBC 4.94 m/uL (4.30-5.90); WBC 13.1 k/uL (3.8-10.6)
[2023-08-28 20:38] LABS: ALT 23 U/L (4-49); AST 22 U/L (17-59); African American GFR (CKD) 69 (>60 ml/min/1.73 sqM); Albumin 3.5 g/dL (3.5-5.0); Alkaline Phosphatase 97 U/L (38-126); Anion Gap 8 mmol/L; Blood Urea Nitrogen 32 mg/dL (9-20); Calcium 10.1 mg/dL (8.4-10.2); Carbon Dioxide 22 mmol/L (22-30); Chloride 107 mmol/L (98-107); Glucose 184 mg/dL (74-99); Non-African American GFR(CKD) 59 (>60 ml/min/1.73 sqM); Potassium 4.1 mmol/L (3.5-5.1); Sodium 137 mmol/L (137-145); Total Bilirubin 0.4 mg/dL (0.2-1.3)
[2023-08-28 20:40] LABS: Appearance,Urine Cloudy (Clear); Bacteria,Urine Many /hpf; Bilirubin,Urine Negative (Negative); Blood,Urine Small (Negative); Color,Urine Light Yellow; Glucose,Urine (UA) Negative (Negative); Ketones,Urine Negative (Negative); Leukocyte Esterase,Urine Large (Negative); Mucus,Urine Few /hpf; Nitrite,Urine Positive (Negative); Protein,Urine Trace (Negative); RBC,Urine 29 /hpf (0-5); Specific Gravity,Urine 1.017 (1.001-1.035); Urobilinogen,Urine <2.0 mg/dL (<2.0); WBC,Urine 17 /hpf (0-5)
[2023-08-28] MEDS: SODIUM CHLORIDE 0.9% 1,000 ML IV STA (20:40)
[2023-08-28] MEDS ORDERED: ONDANSETRON 4 MG/2 ML VIAL IVP PRN (21:19)
[2023-08-28] MEDS ORDERED: NALOXONE 0.4 MG/ML 1 ML VIAL IV PRN (21:19)
[2023-08-28] MEDS ORDERED: HYDROmorphone 0.5 MG/0.5 ML SYRINGE IVP PRN (21:19)
[2023-08-28] MEDS ORDERED: ACETAMINOPHEN TAB 325 MG TAB PO PRN (21:19)
[2023-08-28] MEDS: SODIUM CHLORIDE 0.9% 1,000 ML IV SCH (21:50)
[2023-08-28] MEDS: PIPERACILLIN-TAZOBACTAM 3.375 GM in SODIUM CHLORIDE 0.9% 100 ML IVPB SCH (21:50)
--- NOTE | 2023-08-29 11:35 | P.GSCN ---
History of Present Illness Consult date: 08/29/23 Reason for Consult: UTI History of present illness: This is a 63-year-old male with history of spina bifida, neurogenic bladder being managed with a chronic suprapubic tube. Also has history of penile cancer, has underwent multiple resection by Dr. Corona at [facility]. He currently does follow-up with them for that. He is admitted to the hospital with ESBL UTI. He indicated his suprapubic tube was recently changed by his home nurse. Denies any gross hematuria. Infectious disease has been consulted. 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 -sores on right foot, wound left side back and left hip. Past Anesthesia/Blood Transfusion Reactions: No Reported Reaction Additional Past Anesthesia/Blood Transfusion Reaction / Comm: . Past Psychological History: No Psychological Hx Reported Smoking Status: Current every day smoker Past Alcohol Use History: Occasional Additional Past Alcohol Use History / Comment(s): started smoking 1974 Past Drug Use History: None Reported Additional Drug Use History / Comment(s): CBD oil - Past Family History Mother Family Medical History: Cancer Additional Family Medical History / Comment(s): breast cancer, leukemia Sister(s) Family Medical History: Cancer Additional Family Medical History / Comment(s): breast cancer Father Family Medical History: Cancer Medications and Allergies Home Medications Medication Instructions Recorded Confirmed Type Metoprolol Succinate (ER) [Toprol 25 mg PO BID 11/23/20 08/28/23 History XL] Triamterene/Hydrochlorothiazid 1 tab PO DAILY 11/23/20 08/28/23 History [Triamterene-Hctz 37.5-25 mg Tb] Nitrofurantoin Monohyd/M-Cryst 100 mg PO Q12HR 08/28/23 08/28/23 History [Macrobid] Allergies Allergy/AdvReac Type Severity Reaction Status Date / Time No Known Allergies Allergy Verified 08/28/23 21:26 Surgical - Exam Vital Signs Temp Pulse Resp BP Pulse Ox 98.8 F 85 18 146/75 96 08/28/23 18:06 08/28/23 18:06 08/28/23 18:06 08/28/23 18:06 08/28/23 18:06 - General no distress, no pain - ENT normal nares, normal mucosa - Respiratory normal expansion, normal respiratory effort - Abdomen Abdomen: soft, non tender - Psychiatric oriented to time, oriented to person, oriented to place Results - Labs 08/28/23 20:00 08/28/23 20:00 Abnormal Lab Results - Last 24 Hours (Table) 08/28/23 08/28/23 08/28/23 Range/Units 20:00 20:00 20:00 WBC 13.1 H (3.8-10.6) k/uL BUN 32 H (9-20) mg/dL Creatinine 1.27 H (0.66-1.25) mg/dL Glucose 184 H (74-99) mg/dL Urine Protein Trace H (Negative) Urine Blood Small H (Negative) Ur Leukocyte Esterase Large H (Negative) Urine RBC 29 H (0-5) /hpf Urine WBC 17 H (0-5) /hpf Urine Bacteria Many H (None) /hpf Urine Mucus Few H (None) /hpf Diabetes panel 08/28/23 Range/Units 20:00 Sodium 137 (137-145) mmol/L Potassium 4.1 (3.5-5.1) mmol/L Chloride 107 (98-107) mmol/L Carbon Dioxide 22 (22-30) mmol/L BUN 32 H (9-20) mg/dL Creatinine 1.27 H (0.66-1.25) mg/dL Glucose 184 H (74-99) mg/dL Calcium 10.1 (8.4-10.2) mg/dL AST 22 (17-59) U/L ALT 23 (4-49) U/L Alkaline Phosphatase 97 (38-126) U/L Total Protein 7.0 (6.3-8.2) g/dL Albumin 3.5 (3.5-5.0) g/dL Calcium panel 08/28/23 Range/Units 20:00 Calcium 10.1 (8.4-10.2) mg/dL Albumin 3.5 (3.5-5.0) g/dL Pituitary panel 08/28/23 Range/Units 20:00 Sodium 137 (137-145) mmol/L Potassium 4.1 (3.5-5.1) mmol/L Chloride 107 (98-107) mmol/L Carbon Dioxide 22 (22-30) mmol/L BUN 32 H (9-20) mg/dL Creatinine 1.27 H (0.66-1.25) mg/dL Glucose 184 H (74-99) mg/dL Calcium 10.1 (8.4-10.2) mg/dL Adrenal panel 08/28/23 Range/Units 20:00 Sodium 137 (137-145) mmol/L Potassium 4.1 (3.5-5.1) mmol/L Chloride 107 (98-107) mmol/L Carbon Dioxide 22 (22-30) mmol/L BUN 32 H (9-20) mg/dL Creatinine 1.27 H (0.66-1.25) mg/dL Glucose 184 H (74-99) mg/dL Calcium 10.1 (8.4-10.2) mg/dL Total Bilirubin 0.4 (0.2-1.3) mg/dL AST 22 (17-59) U/L ALT 23 (4-49) U/L Alkaline Phosphatase 97 (38-126) U/L Total Protein 7.0 (6.3-8.2) g/dL Albumin 3.5 (3.5-5.0) g/dL Assessment and Plan Assessment: 63-year-old male with history of spina bifida neurogenic bladder being managed with a suprapubic tube. Mid to the hospital with ESBL UTI. Infectious disease is on consult. From urology standpoint no further intervention, antibiotics and duration of antibiotic therapy per infectious disease -Can continue to follow-up with [facility] urology for continued care for his penile cancer
--- NOTE | 2023-08-29 12:14 | P.HPIM ---
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 Patient states that he has visiting nurse who noticed that his urine was cloudy, besides the patient he can tell when he has UTI. He does not have feeling from the waist down and this is a chronic biopsy Feeling that becomes shaky clammy and he does not feel right. This time he feels the same and that he has UTI. Sample was sent to her PCP and then they called him to come to the hospital No dysuria urgency because of his neurological deficit from his spinal bifid and neurogenic bladder as well as lower extremity paralysis and atrophy, all these are chronic problems. Patient denies chest pain or dyspnea. No abdominal pain vomiting or diarrhea. No headache dizziness new weakness or numbness. Patient smokes about 1 pack every 3 days and he was counseled to quit he agrees but he declines nicotine patch, no alcohol or illicit drugs. Patient is hemodynamically stable afebrile He has mild leukocytosis around 13,000. Creatinine slightly up 1.2 with baseline 0.9. Liver enzymes unremarkable. Was started on normal saline and Zosyn but this is going to be a change in 2 different antibiotic Review of Systems Review of systems CONSTITUTIONAL: No fever, no malaise, no fatigue. HEENT: No recent visual problems or hearing problems. Denied any sore throat. CARDIOVASCULAR: No orthopnea, PND, no palpitations, no syncope. PULMONARY: No shortness of breath, no cough, no hemoptysis. GASTROINTESTINAL: No diarrhea, no nausea, no vomiting, no abdominal pain. Normoactive bowel sounds. NEUROLOGICAL: No headaches, no weakness, no numbness. HEMATOLOGICAL: Denies any bleeding or petechiae. GENITOURINARY: Denies any burning micturition, frequency, or urgency. MUSCULOSKELETAL/RHEUMATOLOGICAL: Denies any joint pain, swelling, or any muscle pain. ENDOCRINE: Denies any polyuria or polydipsia. 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 -sores on right foot, wound left side back and left hip. Past Anesthesia/Blood Transfusion Reactions: No Reported Reaction Additional Past Anesthesia/Blood Transfusion Reaction / Comment(s): . Past Psychological History: No Psychological Hx Reported Smoking Status: Current every day smoker Past Alcohol Use History: Occasional Additional Past Alcohol Use History / Comment(s): started smoking 1974 Past Drug Use History: None Reported Additional Drug Use History / Comment(s): CBD oil - Past Family History Mother Family Medical History: Cancer Additional Family Medical History / Comment(s): breast cancer, leukemia Sister(s) Family Medical History: Cancer Additional Family Medical History / Comment(s): breast cancer Father Family Medical History: Cancer Medications and Allergies Home Medications Medication Instructions Recorded Confirmed Type Metoprolol Succinate (ER) [Toprol 25 mg PO BID 11/23/20 08/28/23 History XL] Triamterene/Hydrochlorothiazid 1 tab PO DAILY 11/23/20 08/28/23 History [Triamterene-Hctz 37.5-25 mg Tb] Nitrofurantoin Monohyd/M-Cryst 100 mg PO Q12HR 08/28/23 08/28/23 History [Macrobid] Allergies Allergy/AdvReac Type Severity Reaction Status Date / Time No Known Allergies Allergy Verified 08/28/23 21:26 Physical Exam Vitals: Vital Signs Temp Pulse Pulse Resp BP BP Pulse Ox 08/29/23 07:50 97.8 F 63 16 108/46 95 08/29/23 02:00 97.9 F 76 16 135/65 96 08/28/23 22:50 98.0 F 80 16 147/76 98 08/28/23 21:58 98.8 F 08/28/23 21:16 80 18 138/76 97 08/28/23 18:06 98.8 F 85 18 146/75 96 Intake and Output 08/28/23 08/29/23 08/29/23 22:59 06:59 14:59 Intake Total 236 Output Total 600 Balance -600 236 Intake: Oral 236 Output: Urine 600 Other: Voiding Method Indwelling Catheter Weight 70.307 kg GENERAL: The patient is alert and oriented x3, not in any acute distress. Well developed, well nourished. HEENT: Pupils are round and equally reacting to light. EOMI. No scleral icterus. No conjunctival pallor. Normocephalic, atraumatic. No pharyngeal erythema. No thyromegaly. CARDIOVASCULAR: S1 and S2 present. No murmurs, rubs, or gallops. PULMONARY: Chest is clear to auscultation, no wheezing , no crackles. ABDOMEN: Soft, nontender, nondistended, normoactive bowel sounds. No palpable organomegaly. MUSCULOSKELETAL: No joint swelling or deformity. EXTREMITIES: No cyanosis, clubbing, or pedal edema. NEUROLOGICAL: Gross neurological examination did not reveal any focal deficits. SKIN: No rashes. no petechiae. Results CBC & Chem 7: 08/28/23 20:00 08/28/23 20:00 Labs: Abnormal Lab Results - Last 24 Hours (Table) 08/28/23 08/28/23 08/28/23 Range/Units 20:00 20:00 20:00 WBC 13.1 H (3.8-10.6) k/uL BUN 32 H (9-20) mg/dL Creatinine 1.27 H (0.66-1.25) mg/dL Glucose 184 H (74-99) mg/dL Urine Protein Trace H (Negative) Urine Blood Small H (Negative) Ur Leukocyte Esterase Large H (Negative) Urine RBC 29 H (0-5) /hpf Urine WBC 17 H (0-5) /hpf Urine Bacteria Many H (None) /hpf Urine Mucus Few H (None) /hpf Assessment and Plan Assessment: Acute urinary tract infection associated with indwelling suprapubic catheter, present on admission Mild acute kidney injury History of sameer shara and neurogenic bladder with history of recurrent UTI Hypertension History of GERD History of decubitus ulcer Plan: Continue with normal saline Continue with antibiotic as per ID team Follow-up blood culture and urine culture Labs and medication were reviewed.. Continue same treatment. Continue with symptomatic treatment. Resume home medication. Monitor labs and vitals. DVT and GI prophylaxis. Further recommendations as per clinical course of the patient DVT prophylaxis: Subcutaneous heparin GI Prophylaxis: Pepcid
--- NOTE | 2023-08-29 12:27 | P.CONS ---
History of Present Illness - Reason for Consult Consult date: 08/29/23 wound care - History of Present Illness This is a 63-year-old gentleman being seen on [address] for nonhealing ulcerations to the back, left groin, right medial ankle and right great toe. Patient has been a patient of the wound care center for multiple years. He is noncompliant.Original cause of wound was Pressure Injury. The date acquired was: 02/26/2022. The wound has been in treatment 77 weeks. The wound is currently class ified as a Category/Stage II wound with etiology of Pressure Ulcer and is located on the Right,Medial Ankle. The wound measures 1.8cm length x 1.1cm width x 0.1cm depth; 1.555cm^2 area and 0.156cm^3 volume. There is Fat Layer (Subcutaneous Tissue) exposed. There is no tunneling or undermining noted. There is a medium amount of drainage noted. The wound margin is distinct with the outline attached to the wound base. There is large (67-100%) red granulation within the wound bed. There is a small (1-33%) amount of necrotic tissue within the wound bed. The periwound skin appearance exhibited: Callus, Scarring, Maceration. The periwound skin appearance did not exhibit: Crepitus, Excoriation, Induration, Rash, Dry/Scaly, Atrophie Priscilla, Cyanosis, Ecchymosis, Hemosiderin Staining, Mottled, Pallor, Rubor, Erythema. Periwound temperature was noted as No Abnormality. Original cause of wound was Shear/Friction. The date acquired was: 03/25/2023. The wound has been in treatment 22 weeks. The wound is currently classified as a Category/Stage III wound with etiology of Pressure Ulcer and is located on the Back. The wound measures 4.2cm length x 3.3cm width x 0.1cm depth; 10.886cm^2 area and 1.089cm^3 volume. There is Fat Layer (Subcutaneous Tissue) exposed. There is no tunneling or undermining noted. There is a large amount of drainage noted. The wound margin is flat and intact. There is large (67-100%) red granulation within the wound bed. There is a small (1-33%) amount of necrotic tissue within the wound bed. The periwound skin appearance exhibited: Callus, Scarring, Dry/Scaly. The p eriwound skin appearance did not exhibit: Crepitus, Excoriation, Induration, Rash, Maceration, Atrophie Priscilla, Cyanosis, Ecchymosis, Hemosiderin Staining, Mottled, Pallor, Rubor, Erythema. Periwound temperature was noted as No Abnormality.Original cause of wound was Shear/Friction. The date acquired was: 06/10/2023. The wound has been in treatment 11 weeks. The wound is currently classified as a Category/Stage II wound with etiology of Pressure Ulcer and is located on the Left,Superior Groin. The wound measures 1cm length x 1.5cm width x 0.1cm depth; 1.178cm^2 area and 0.118cm^3 volume. There is Fat Layer (Subcutaneous Tissue) exposed. There is a medium amount of drainage noted. The wound margin is flat and intact. There is large (67-100%) red granulation within the wound bed. There is a small (1-33%) amount of necrotic tissue within the wound bed. The periwound skin appearance exhibited: Erythema. The periwound skin appearance did not exhibit: Callus, Crepitus, Excoriation, Induration, Rash, Scarring, Dry/Scaly, Maceration, Atrophie Priscilla, Cyanosis, Ecchymosis, Hemosiderin Staining, Mottled, Pallor, Rubor. The surrounding wound skin color is noted with erythema which is circumferential. Periwound temperature was noted as No Abnormality. Original cause of wound was Trauma. The date acquired was: 05/27/2023. The wound has been in treatment 7 weeks. The wound is currently clas sified as a Partial Thickness wound with etiology of Trauma, Other and is located on the Right,Medial Toe Great. The wound measures 0.9cm length x 0.7cm width x 0.1cm depth; 0.495cm^2 area and 0.049cm^3 volume. There is a medium amount of drainage noted. The wound margin is distinct with the outline attached to the wound base. There is large (67-100%) red granulation within the wound bed. There is a small (1-33%) amount of necrotic tissue within the wound bed. The periwound skin appearance did not exhibit: Callus, Crepitus, Excoriation, Induration, Rash, Scarring, Dry/Scaly, Maceration, Atrophie Priscilla, Cyanosis, Ecchymosis, Hemosiderin Staining, Mottled, Pallor, Rubor, Erythema. Review Of Systems: Constitutional: No fever, no chills, no night sweats. No weight change. No weakness, fatigue or lethargy. No daytime sleepiness. Integumentary:reports wounds, no lesions. No rash or pruritus. No unusual bruising. No change in hair or nails. Physical exam: General Appearance: Alert, cooperative, no distress, appears stated age. Skin: See HPI all other Skin color, texture, tugor normal, no rashes or lesions. Neurologic: Alert oriented x3 Assessment: 1.Spina bifida occulta 2. Pressure ulcer of left lower back, stage 3 3. Pressure ulcer of other site, stage 2 4.Pressure ulcer of left hip, stage 3 5. Pressure ulcer of right ankle, stage 3 Plan: 1. Apply absorptive silver to all ulceration saline moist gauze and secure with rolled gauze or border foam. Change Saturday. Patient's next appointment in the wound care center is September 08 at 1030. Thank you for the consultation any questions please contact the wound care center DNP note has been reviewed and discussed with Dr. Barone and the impression and plan of care has been directed as dictated. 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 -sores on right foot, wound left side back and left hip. Past Anesthesia/Blood Transfusion Reactions: No Reported Reaction Additional Past Anesthesia/Blood Transfusion Reaction / Comm: . Past Psychological History: No Psychological Hx Reported Smoking Status: Current every day smoker Past Alcohol Use History: Occasional Additional Past Alcohol Use History / Comment(s): started smoking 1974 Past Drug Use History: None Reported Additional Drug Use History / Comment(s): CBD oil - Past Family History Mother Family Medical History: Cancer Additional Family Medical History / Comment(s): breast cancer, leukemia Sister(s) Family Medical History: Cancer Additional Family Medical History / Comment(s): breast cancer Father Family Medical History: Cancer Medications and Allergies Home Medications Medication Instructions Recorded Confirmed Type Metoprolol Succinate (ER) [Toprol 25 mg PO BID 11/23/20 08/28/23 History XL] Triamterene/Hydrochlorothiazid 1 tab PO DAILY 11/23/20 08/28/23 History [Triamterene-Hctz 37.5-25 mg Tb] Nitrofurantoin Monohyd/M-Cryst 100 mg PO Q12HR 08/28/23 08/28/23 History [Macrobid] Allergies Allergy/AdvReac Type Severity Reaction Status Date / Time No Known Allergies Allergy Verified 08/28/23 21:26 Physical Exam Vitals: Vital Signs Temp Pulse Pulse Resp BP BP Pulse Ox 08/29/23 07:50 97.8 F 63 16 108/46 95 08/29/23 02:00 97.9 F 76 16 135/65 96 08/28/23 22:50 98.0 F 80 16 147/76 98 08/28/23 21:58 98.8 F 08/28/23 21:16 80 18 138/76 97 08/28/23 18:06 98.8 F 85 18 146/75 96 Intake and Output 08/28/23 08/29/23 08/29/23 22:59 06:59 14:59 Intake Total 236 Output Total 600 Balance -600 236 Intake: Oral 236 Output: Urine 600 Other: Voiding Method Indwelling Catheter Weight 70.307 kg Results CBC & Chem 7: 08/28/23 20:00 08/28/23 20:00 Labs: Abnormal Lab Results - Last 24 Hours (Table) 08/28/23 08/28/23 08/28/23 Range/Units 20:00 20:00 20:00 WBC 13.1 H (3.8-10.6) k/uL BUN 32 H (9-20) mg/dL Creatinine 1.27 H (0.66-1.25) mg/dL Glucose 184 H (74-99) mg/dL Urine Protein Trace H (Negative) Urine Blood Small H (Negative) Ur Leukocyte Esterase Large H (Negative) Urine RBC 29 H (0-5) /hpf Urine WBC 17 H (0-5) /hpf Urine Bacteria Many H (None) /hpf Urine Mucus Few H (None) /hpf Assessment and Plan (1) Pressure ulcer of right ankle, stage 2 Current Visit: Yes Status: Acute Code(s): L89.512 - PRESSURE ULCER OF RIGHT ANKLE, STAGE 2 SNOMED Code(s): 27945896895179 (2) Pressure ulcer of left hip, stage 3 Current Visit: No Status: Acute Code(s): L89.223 - PRESSURE ULCER OF LEFT HIP, STAGE 3 SNOMED Code(s): 78045805209326 (3) Pressure ulcer of left lower back, stage 3 Current Visit: No Status: Acute Code(s): L89.143 - PRESSURE ULCER OF LEFT LOWER BACK, STAGE 3 SNOMED Code(s): 959806935 (4) Spina bifida occulta Current Visit: No Status: Acute Code(s): Q76.0 - SPINA BIFIDA OCCULTA S NOMED Code(s): 61662410
[2023-08-29] MEDS: ERTAPENEM 1 GM in SODIUM CHLORIDE 0.9% 50 ML IVPB SCH (13:16)
[2023-08-29] MEDS: METOPROLOL SUCCINATE (ER) 25 MG TAB.ER.24H PO SCH (20:24)
--- NOTE | 2023-08-29 23:05 | P.CONS ---
History of Present Illness - Reason for Consult Consult date: 08/29/23 - History of Present Illness Patient is a 63-year-old male with a past medical history significant for hypertension osteoarthritis reflux neurogenic bladder spina bifida and did have a suprapubic catheter apparently was changed about a week ago on however the patient seem to have symptoms of some leakage around the catheter and discomfort and not feeling well also have a cloudy urine and low-grade fever patient apparently did have a urine culture done in the outpatient setting on 08/24/2023 that did grow ESBL Klebsiella for the patient has been advised to go to the hospital to be started on IV antibiotic therapy Patient on presentation to the hospital was afebrile patient was not tachycardic hypotensive or hypoxic white count was elevated 13.1 BUN/creatinine mildly elevated did have a positive UA patient was started on Zosyn infectious disease was consulted for further management of antibiotic therapy Past Medical History Past Medical History: GERD/Reflux, Hypertension, Osteoarthritis (OA), Pneumonia Additional Past Medical History / Comment(s): uti's, neurogenic bladder,.hx Spina Bifida, lower lt lumbar decub ulcer,hiatal hernia, past urethral stricture, has suprapubic catheter, sore to left hip, "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 -sores on right foot, wound left side back and left hip. Past Anesthesia/Blood Transfusion Reactions: No Reported Reaction Additional Past Anesthesia/Blood Transfusion Reaction / Comm: . Past Psychological History: No Psychological Hx Reported Smoking Status: Current every day smoker Past Alcohol Use History: Occasional Additional Past Alcohol Use History / Comment(s): started smoking 1974 Past Drug Use History: None Reported Additional Drug Use History / Comment(s): CBD oil - Past Family History Mother Family Medical History: Cancer Additional Family Medical History / Comment(s): breast cancer, leukemia Sister(s) Family Medical History: Cancer Additional Family Medical History / Comment(s): breast cancer Father Family Medical History: Cancer Medications and Allergies Home Medications Medication Instructions Recorded Confirmed Type Metoprolol Succinate (ER) [Toprol 25 mg PO BID 11/23/20 08/28/23 History XL] Triamterene/Hydrochlorothiazid 1 tab PO DAILY 11/23/20 08/28/23 History [Triamterene-Hctz 37.5-25 mg Tb] Nitrofurantoin Monohyd/M-Cryst 100 mg PO Q12HR 08/28/23 08/28/23 History [Macrobid] Allergies Allergy/AdvReac Type Severity Reaction Status Date / Time No Known Allergies Allergy Verified 08/28/23 21:26 Physical Exam Vitals: Vital Signs Temp Pulse Resp BP Pulse Ox 08/29/23 20:00 98.0 F 67 16 120/50 97 08/29/23 15:00 97.6 F 89 16 148/76 99 08/29/23 07:50 97.8 F 63 16 108/46 95 08/29/23 02:00 97.9 F 76 16 135/65 96 Intake and Output 08/29/23 08/29/23 08/30/23 14:59 22:59 06:59 Intake Total 472 Output Total 400 200 Balance 72 -200 Intake: Oral 472 Output: Urine 400 200 Other: Voiding Method Indwelling Catheter Results CBC & Chem 7: 08/28/23 20:00 08/28/23 20:00 Assessment and Plan Plan: 1patient presented to hospital with symptomatic cath associated tract infection in this patient who do have history of recurrent UTI, with recent outpatient urine culture positive for ESBL Klebsiella patient Haas catheter has been changed about a week ago 2-we will discontinue Zosyn 3-start the patient on Invanz 1 g daily he will likely need midline outpatient IV antibiotic arrangement We will follow on clinical condition and cultures to further adjust medication if needed Thank you for this consultation we will follow the patient along with you Dictation was produced using [employer] dictation software. please excuse any grammatical, word or spelling errors. Time with Patient: Greater than 30
[2023-08-30] MEDS: TRIAMTERENE-HCTZ 37.5-25MG 1 EACH CAP PO SCH (08:22)
--- NOTE | 2023-08-30 13:15 | P.PN ---
Subjective Progress Note Date: 08/30/23 Patient is a 63-year-old male with a past medical history significant for hypertension osteoarthritis reflux neurogenic bladder spina bifida and did have a suprapubic catheter apparently was changed about a week before presentation to the hospital now presenting to the hospital low-grade fever not feeling well leakage around the catheter and noticed to have a positive urine culture with ESBL Klebsiella in the outpatient setting. On today's visit that is 08/30/2023, Patient is afebrile patient is currently on room air and denies having any shortness of breath, the patient denies any chest pain or cough, the patient denies any nausea vomiting did not have any abdominal pain and no diarrhea No CBC was done today urine is growing gram-negative bacilli Objective - Vital Signs Vital signs: Vital Signs Temp 97.6 F 08/30/23 07:50 Pulse 60 08/30/23 07:50 Resp 16 08/30/23 07:50 BP 134/77 08/30/23 07:50 Pulse Ox 99 08/30/23 07:50 FiO2 Intake & Output 08/29/23 08/30/23 08/30/23 18:59 06:59 18:59 Intake Total 472 210 Output Total 400 700 Balance 72 -700 210 Intake: Oral 472 210 Output: Urine 400 700 Other: Voiding Method Indwelling Catheter Indwelling Catheter Indwelling Catheter - Exam GENERAL DESCRIPTION: Middle-age male lying in bed in no distress RESPIRATORY SYSTEM: Unlabored breathing , decreased breath sounds at bases HEART: S1 S2 regular rate and rhythm , ABDOMEN: Soft , no tenderness EXTREMITIES: No edema feet - Labs CBC & Chem 7: 08/28/23 20:00 08/28/23 20:00 Labs: Microbiology - Last 24 Hours (Table) 08/28/23 21:15 Blood Culture - Preliminary Blood 08/28/23 21:00 Blood Culture - Preliminary Blood 08/28/23 20:00 Urine Culture - Preliminary Urine,Voided Gram Neg Bacilli Assessment and Plan (1) Infection with ESBL Klebsiella oxytoca Current Visit: Yes Status: Acute Code(s): A49.8 - OTHER BACTERIAL INFECTIONS OF UNSPECIFIED SITE; Z16.12 - EXTENDED SPECTRUM BETA LACTAMASE (ESBL) RESISTANCE SNOMED Code(s): 9119524411 (2) UTI (urinary tract infection) Current Visit: Yes Status: Acute Code(s): N39.0 - URINARY TRACT INFECTION, SITE NOT SPECIFIED SNOMED Code(s): 50585766 Plan: 1patient presented to hospital with symptomatic cath associated tract infection in this patient who do have history of recurrent UTI, with recent outpatient urine culture positive for ESBL Klebsiella patient Haas catheter has been changed about a week ago 2-patient to continue Invanz 1 g daily while waiting for the culture to finalize already got the midline Dictation was produced using [facility] dictation software. please excuse any grammatical, word or spelling errors. Time with Patient: Less than 30
--- NOTE | 2023-08-30 22:17 | P.PN ---
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 Patient states that he has visiting nurse who noticed that his urine was cloudy, besides the patient he can tell when he has UTI. He does not have feeling from the waist down and this is a chronic biopsy Feeling that becomes shaky clammy and he does not feel right. This time he feels the same and that he has UTI. Sample was sent to her PCP and then they called him to come to the hospital No dysuria urgency because of his neurological deficit from his spinal bifid and neurogenic bladder as well as lower extremity paralysis and atrophy, all these are chronic problems. Patient denies chest pain or dyspnea. No abdominal pain vomiting or diarrhea. No headache dizziness new weakness or numbness. Patient smokes about 1 pack every 3 days and he was counseled to quit he agrees but he declines nicotine patch, no alcohol or illicit drugs. Patient is hemodynamically stable afebrile He has mild leukocytosis around 13,000. Creatinine slightly up 1.2 with baseline 0.9. Liver enzymes unremarkable. Was started on normal saline and Zosyn but this is going to be a change in 2 different antibiotic 08/30/2023 Patient clinically improving His urine is also back to normal Patient antonia on antibiotic with plan to continue IV antibiotics upon discharge. Left arm PICC line is in place Urine culture is still pending for final diagnosis upon discharge. Plan of care is discussed with infectious disease team Discussed with the staff. Objective - Vital Signs Vital signs: Vital Signs Temp 98.5 F 08/30/23 19:13 Pulse 70 08/30/23 20:00 Resp 15 08/30/23 20:00 BP 117/56 08/30/23 19:13 Pulse Ox 98 08/30/23 19:13 FiO2 Intake & Output 08/30/23 08/30/23 08/31/23 06:59 18:59 06:59 Intake Total 528 Output Total 700 500 Balance -700 28 Intake: Oral 528 Output: Urine 700 500 Other: Voiding Method Indwelling Catheter Indwelling Catheter Indwelling Catheter # Bowel Movements 2 - Exam GENERAL: The patient is alert and oriented x3, not in any acute distress. Well developed, well nourished. HEENT: Pupils are round and equally reacting to light. EOMI. No scleral icterus. No conjunctival pallor. Normocephalic, atraumatic. No pharyngeal erythema. No thyromegaly. CARDIOVASCULAR: S1 and S2 present. No murmurs, rubs, or gallops. PULMONARY: Chest is clear to auscultation, no wheezing , no crackles. ABDOMEN: Soft, nontender, nondistended, normoactive bowel sounds. No palpable organomegaly. MUSCULOSKELETAL: No joint swelling or deformity. EXTREMITIES: No cyanosis, clubbing, or pedal edema. NEUROLOGICAL: Gross neurological examination did not reveal any focal deficits. SKIN: No rashes. no petechiae. - Labs CBC & Chem 7: 08/28/23 20:00 08/28/23 20:00 Labs: Microbiology - Last 24 Hours (Table) 08/28/23 21:15 Blood Culture - Preliminary Blood 08/28/23 21:00 Blood Culture - Preliminary Blood 08/28/23 20:00 Urine Culture - Preliminary Urine,Voided Gram Neg Bacilli Assessment and Plan Assessment: Acute urinary tract infection associated with indwelling suprapubic catheter, present on admission Mild acute kidney injury History of sameer shara and neurogenic bladder with history of recurrent UTI Hypertension History of GERD History of decubitus ulcer Plan: Continue with antibiotic as per ID team Follow-up blood culture and urine culture Labs and medication were reviewed.. Continue same treatment. Continue with symptomatic treatment. Resume home medication. Monitor labs and vitals. DVT and GI prophylaxis. Further recommendations as per clinical course of the patient DVT prophylaxis: Subcutaneous heparin GI Prophylaxis: Pepcid
[2023-08-31 05:08] VITALS: RESP 16
--- NOTE | 2023-08-31 14:11 | P.PN ---
Subjective Progress Note Date: 08/31/23 Principal diagnosis: Reason for follow-up is urinary tract infection Patient is a 63-year-old male with a past medical history significant for hypertension osteoarthritis reflux neurogenic bladder spina bifida and did have a suprapubic catheter apparently was changed about a week before presentation to the hospital now presenting to the hospital low-grade fever not feeling well leakage around the catheter and noticed to have a positive urine culture with ESBL Klebsiella in the outpatient setting. On today's visit that is 08/31/2023, patient has been afebrile, patient is breathing comfortably and is currently on room air, patient denies having any significant cough no chest pain shortness of breath, patient denies nausea vomiting or diarrhea and no abdominal pain No new labs has been obtained today urine has been finalized with Klebsiella that is not ESBL Objective - Vital Signs Vital signs: Vital Signs Temp 97.7 F 08/31/23 07:00 Pulse 58 L 08/31/23 07:00 Resp 16 08/31/23 07:00 BP 126/66 08/31/23 07:00 Pulse Ox 98 08/31/23 07:00 FiO2 Intake & Output 08/30/23 08/31/23 08/31/23 18:59 06:59 18:59 Intake Total 528 240 Output Total 500 600 250 Balance 28 -600 -10 Intake: Oral 528 240 Output: Urine 500 600 250 Other: Voiding Method Indwelling Catheter Indwelling Catheter Indwelling Catheter # Bowel Movements 2 1 - Exam GENERAL DESCRIPTION: Middle-age male lying in bed in no distress RESPIRATORY SYSTEM: Unlabored breathing , decreased breath sounds at bases HEART: S1 S2 regular rate and rhythm , ABDOMEN: Soft , no tenderness EXTREMITIES: No edema feet - Labs CBC & Chem 7: 08/28/23 20:00 08/28/23 20:00 Labs: Microbiology - Last 24 Hours (Table) 08/28/23 20:00 Urine Culture - Final Urine,Voided Klebsiella pneumoniae 08/28/23 21:15 Blood Culture - Preliminary Blood 08/28/23 21:00 Blood Culture - Preliminary Blood Assessment and Plan (1) Infection with ESBL Klebsiella oxytoca Current Visit: Yes Status: Acute Code(s): A49.8 - OTHER BACTERIAL INFECTIONS OF UNSPECIFIED SITE; Z16.12 - EXTENDED SPECTRUM BETA LACTAMASE (ESBL) RESISTANCE SNOMED Code(s): 4419411975 (2) UTI (urinary tract infection) Current Visit: Yes Status: Acute Code(s): N39.0 - URINARY TRACT INFECTION, SITE NOT SPECIFIED SNOMED Code(s): 08927578 Plan: 1patient presented to hospital with symptomatic cath associated tract infection in this patient who do have history of recurrent UTI, with recent outpatient urine culture positive for ESBL Klebsiella patient Haas catheter has been changed about a week ago 2-patient urine culture this admission is growing Klebsiella that is not ESBL. 3we will discontinue Invanz start the patient on Rocephin will be able to finish therapy with oral Ceftin Dictation was produced using [employer] dictation software. please excuse any grammatical, word or spelling errors. Time with Patient: Less than 30
[2023-09-01 08:34] VITALS: BP 110/58; PULSE 61; TEMP 97.7
== END 2023-09-01 11:24 | disposition home health service (06) ==
LOC: EC 17:29 → 6NMEDSUR 21:20
PROVIDERS: ADMIT Hospitalist; ATTEND Hospitalist
DX: N39.0 Urinary tract infection, site not specified (principal); B96.89 Other specified bacterial agents as the cause of diseases classified elsewhere; Z16.12 Extended spectrum beta lactamase (ESBL) resistance; N17.9 Acute kidney failure, unspecified; N31.9 Neuromuscular dysfunction of bladder, unspecified; K21.9 Gastro-esophageal reflux disease without esophagitis; I10 Essential (primary) hypertension; Q76.0 Spina bifida occulta; L89.143 Pressure ulcer of left lower back, stage 3; L89.892 Pressure ulcer of other site, stage 2; L89.223 Pressure ulcer of left hip, stage 3; L89.513 Pressure ulcer of right ankle, stage 3; F17.200 Nicotine dependence, unspecified, uncomplicated; Z85.49 Personal history of malignant neoplasm of other male genital organs; Z85.828 Personal history of other malignant neoplasm of skin; Z87.440 Personal history of urinary (tract) infections; Z79.899 Other long term (current) drug therapy
CPT/HCPCS: 96361 ×2; 96365; 96366 ×4; 96367 ×2; 99284; 36415; 36410; 76937; 80053; 83605; 85027; 81001; 87040; 87086; 87077; 87186; G0378 ×5; C1751; J2543 ×2; J0696; J1335 ×3

== ENCOUNTER 2023-10-15 13:34 | Inpatient (IN) | payer MEDICARE, OTHER ==
[2023-10-15 15:13] LABS: Basophils % (A) 0 %; Eosinophils # (A) 0.3 k/uL (0-0.7); Eosinophils % (A) 2 %; HCT 41.4 % (39.0-53.0); HGB 13.5 gm/dL (13.0-17.5); Lymphocytes # (A) 0.9 k/uL (1.0-4.8); Lymphocytes % (A) 6 %; MCHC 32.6 g/dL (31.0-37.0); MCV 85.9 fL (80.0-100.0); Mean Platelet Volume 8.1; Monocytes % (A) 7 %; Neutrophils # (A) 11.2 k/uL (1.3-7.7); Neutrophils % (A) 82 %; Platelet Count 321 k/uL (150-450); RBC 4.82 m/uL (4.30-5.90); RDW 14.8 % (11.5-15.5); WBC 13.8 k/uL (3.8-10.6)
--- NOTE | 2023-10-15 18:00 | ED ---
Male Urogenital HPI - General Chief complaint: Urogenital Stated complaint: Abd labs-sent by PCP Time Seen by Provider: 10/15/23 16:49 Source: patient, RN notes reviewed, old records reviewed Mode of arrival: wheelchair - History of Present Illness Initial comments: This is a 63-year-old male to the ER for evaluation today. Patient comes in for nonfunctioning Haas catheter no urinary output. Patient was told that he has significant urinary tract infection and is significantly sick MD Complaint: dysuria, other (Malfunctioning catheter) -: days(s) Severity: severe Consistency: constant Improves with: none Worsens with: none Reports: denies other symptoms - Related Data Home Medications Medication Instructions Recorded Confirmed Metoprolol Succinate (ER) [Toprol 25 mg PO BID 11/23/20 10/15/23 XL] Previous Rx's Medication Instructions Recorded Acetaminophen Tab [Tylenol] 650 mg PO Q6HR PRN tab 10/19/23 Famotidine [Pepcid] 20 mg PO DAILY #30 tab 10/19/23 Magnesium Oxide [Mag-Ox] 400 mg PO DAILY #30 tab 10/19/23 Sodium Bicarbonate Tab 650 mg PO TID #90 tab 10/19/23 hydrALAZINE HCL 25 mg PO TID 30 Days #90 tab 10/19/23 Diphenox-Atrop 2.5-0.025 mg 1 tab PO TID 3 Days #9 tablet 10/20/23 [Lomotil] Allergies Allergy/AdvReac Type Severity Reaction Status Date / Time No Known Allergies Allergy Verified 10/15/23 16:58 Review of Systems ROS Statement: Those systems with pertinent positive or pertinent negative responses have been documented in the HPI. ROS Other: All systems not noted in ROS Statement are negative. 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 -sores on right foot, wound left side back and left hip. Past Anesthesia/Blood Transfusion Reactions: No Reported Reaction Additional Past Anesthesia/Blood Transfusion Reaction / Comment(s): . Past Psychological History: No Psychological Hx Reported Past Drug Use History: None Reported - Past Family History Mother Family Medical History: Cancer Additional Family Medical History / Comment(s): breast cancer, leukemia Sister(s) Family Medical History: Cancer Additional Family Medical History / Comment(s): breast cancer Father Family Medical History: Cancer General Exam General appearance: alert, in no apparent distress Head exam: Present: atraumatic, normocephalic, normal inspection Eye exam: Present: normal appearance, PERRL, EOMI. Absent: scleral icterus, conjunctival injection, periorbital swelling ENT exam: Present: normal exam, mucous membranes moist Neck exam: Present: normal inspection. Absent: tenderness, meningismus, lymphadenopathy Respiratory exam: Present: normal lung sounds bilaterally. Absent: respiratory distress, wheezes, rales, rhonchi, stridor Cardiovascular Exam: Present: regular rate, normal rhythm, normal heart sounds. Absent: systolic murmur, diastolic murmur, rubs, gallop, clicks GI/Abdominal exam: Present: soft, normal bowel sounds. Absent: distended, tenderness, guarding, rebound, rigid Extremities exam: Present: normal inspection, full ROM, normal capillary refill. Absent: tenderness, pedal edema, joint swelling, calf tenderness Back exam: Present: normal inspection Neurological exam: Present: alert, oriented X3, CN II-XII intact Psychiatric exam: Present: normal affect, normal mood Skin exam: Present: warm, dry, intact, normal color. Absent: rash Course Vital Signs 10/15/23 10/15/23 10/15/23 14:02 20:33 23:00 Temperature 97.7 F Pulse Rate 89 98 89 Pulse Rate [ Pulse Oximetery ] Respiratory 18 18 17 Rate Blood Pressure 167/84 114/70 102/58 Blood Pressure [Right Arm] O2 Sat by Pulse 96 Oximetry 10/16/23 10/16/23 10/16/23 03:00 06:00 07:28 Temperature 98.3 F Pulse Rate 87 86 84 Pulse Rate [ Pulse Oximetery ] Respiratory 18 18 18 Rate Blood Pressure 133/73 123/73 136/79 Blood Pressure [Right Arm] O2 Sat by Pulse 95 95 100 Oximetry 10/16/23 10/16/23 10/16/23 11:05 12:12 16:11 Temperature 97.8 F 98.0 F Pulse Rate 81 82 Pulse Rate [ 80 Pulse Oximetery ] Respiratory 20 17 18 Rate Blood Pressure 136/63 140/79 Blood Pressure 129/83 [Right Arm] O2 Sat by Pulse 99 98 100 Oximetry 10/16/23 20:00 Temperature Pulse Rate 101 H Pulse Rate [ Pulse Oximetery ] Respiratory 22 Rate Blood Pressure 154/75 Blood Pressure [Right Arm] O2 Sat by Pulse 95 Oximetry - Reevaluation(s) Reevaluation #1: 10/15/23 19:47 Medical records reviewed Reevaluation #2: 10/15/23 19:47 Patient symptoms unchanged Reevaluation #3: 10/15/23 19:47 Patient informed of results and questions answered Reevaluation #4: Was pt. sent in by a medical professional or institution (, PA, SILL WORKER, urgent care, hospital, or [place] health care facility...) When possible be specific @ -no Did you speak to anyone other than the patient for history (EMS, parent, family, police, friend...)? What history was obtained from this source @ -no Did you review nursing and triage notes (agree or disagree)? Why? @ -agree Are old charts reviewed (outside hosp., previous admission, EMS record, old EKG, old radiological studies, urgent care reports/EKG's, [place] health care facility records)? Report findings @ -yes Differential Diagnosis (chest pain, altered mental status, abdominal pain women, abdominal pain men, vaginal bleeding, weakness, fever, dyspnea, syncope, headache, dizziness, GI bleed, back pain, seizure, CVA, palpatations, mental health, musculoskeletal)? @ -prior EKG interpreted by me (3pts min.). @ -yes X-rays interpreted by me (1pt min.). @ -no CT interpreted by me (1pt min.). @ -Yes positive for hydronephrosis U/S interpreted by me (1pt. min.). @ -Yes positive for hydronephrosis What testing was considered but not performed or refused? (CT, X-rays, U/S, labs)? Why? @ -none What meds were considered but not given or refused? Why? @ -none Did you discuss the management of the patient with other professionals (professionals i.e. , PA, SILL WORKER, lab, RT, psych nurse, social work associate, it risk analyst, teacher, parking officer, test case developer)? Give summary @ -no Was smoking cessation discussed for >3mins.? @ -no Was critical care preformed (if so, how long)? @ -yes31 Were there social determinants of health that impacted care today? How? (Homelessness, low income, unemployed, alcoholism, drug addiction, transportation, low edu. Level, literacy, decrease access to med. care, alf, rehab)? @ -none Was there de-escalation of care discussed even if they declined (Discuss DNR or withdrawal of care, Hospice)? DNR status @ -no What co-morbidities impacted this encounter? (DM, HTN, Smoking, COPD, CAD, Cancer, CVA, ARF, Chemo, Hep., AIDS, mental health diagnosis, sleep apnea, morbid obesity)? @ -none Was patient admitted / discharged? Hospital course, mention meds given and route, prescriptions, significant lab abnormalities, going to OR and other pertinent info. @ - 63 male to be admitted for sepsis significant renal failure with hyperkalemia need for catheterization and UTI Admitted Undiagnosed new problem with uncertain prognosis? @ -no Drug Therapy requiring intensive monitoring for toxicity (Heparin, Nitro, Insulin, Cardizem)? @ -no Were any procedures done? @ -no Diagnosis/symptom? @ -Hyperkalemia with UTI and urosepsis Acute, or Chronic, or Acute on Chronic? @ -Acute Uncomplicated (without systemic symptoms) or Complicated (systemic symptoms)? @ -Complicated Side effects of treatment? @ -no Exacerbation, Progression, or Severe Exacerbation? @ -exacerbation Poses a threat to life or bodily function? How? (Chest pain, USA, SD, pneumonia, PE, COPD, DKA, ARF, appy, cholecystitis, CVA, Diverticulitis, Homicidal, Suicidal, threat to staff... and all critical care pts) @ -yes sepsis and hyperkalemia - Consultations Consultation #1: Spoke with [facility] who agrees to admit this patient Medical Decision Making - Medical Decision Making 63 male to be admitted for sepsis significant renal failure with hyperkalemia need for catheterization and UTI - Lab Data Result diagrams: 10/19/23 06:43 10/20/23 07:12 Lab Results 10/15/23 10/15/23 10/15/23 Range/Units 14:59 14:59 17:42 WBC 13.8 H (3.8-10.6) k/uL RBC 4.82 (4.30-5.90) m/uL Hgb 13.5 (13.0-17.5) gm/dL Hct 41.4 (39.0-53.0) % MCV 85.9 (80.0-100.0) fL MCH 28.0 (25.0-35.0) pg MCHC 32.6 (31.0-37.0) g/dL RDW 14.8 (11.5-15.5) % Plt Count 321 (150-450) k/uL MPV 8.1 Neutrophils % 82 % Lymphocytes % 6 % Monocytes % 7 % Eosinophils % 2 % Basophils % 0 % Neutrophils # 11.2 H (1.3-7.7) k/uL Lymphocytes # 0.9 L (1.0-4.8) k/uL Monocytes # 1.0 (0-1.0) k/uL Eosinophils # 0.3 (0-0.7) k/uL Basophils # 0.0 (0-0.2) k/uL Sodium 134 L (137-145) mmol/L Potassium 7.0 H* (3.5-5.1) mmol/L Chloride 107 (98-107) mmol/L Carbon Dioxide 14 L (22-30) mmol/L Anion Gap 13 mmol/L BUN 111 H* (9-20) mg/dL Creatinine 8.77 H* (0.66-1.25) mg/dL Est GFR (CKD-EPI)AfAm 7 (>60 ml/min/1.73 sqM) Est GFR (CKD-EPI)NonAf 6 (>60 ml/min/1.73 sqM) Glucose 138 H (74-99) mg/dL Plasma Lactic Acid Ramsey 1.3 (0.7-2.0) mmol/L Calcium 9.6 (8.4-10.2) mg/dL Total Bilirubin 0.5 (0.2-1.3) mg/dL AST 16 L (17-59) U/L ALT 15 (4-49) U/L Alkaline Phosphatase 77 (38-126) U/L Total Protein 6.7 (6.3-8.2) g/dL Albumin 3.3 L (3.5-5.0) g/dL Lipase (23-300) U/L 10/15/23 Range/Units 17:42 WBC (3.8-10.6) k/uL RBC (4.30-5.90) m/uL Hgb (13.0-17.5) gm/dL Hct (39.0-53.0) % MCV (80.0-100.0) fL MCH (25.0-35.0) pg MCHC (31.0-37.0) g/dL RDW (11.5-15.5) % Plt Count (150-450) k/uL MPV Neutrophils % % Lymphocytes % % Monocytes % % Eosinophils % % Basophils % % Neutrophils # (1.3-7.7) k/uL Lymphocytes # (1.0-4.8) k/uL Monocytes # (0-1.0) k/uL Eosinophils # (0-0.7) k/uL Basophils # (0-0.2) k/uL Sodium (137-145) mmol/L Potassium (3.5-5.1) mmol/L Chloride (98-107) mmol/L Carbon Dioxide (22-30) mmol/L Anion Gap mmol/L BUN (9-20) mg/dL Creatinine (0.66-1.25) mg/dL Est GFR (CKD-EPI)AfAm (>60 ml/min/1.73 sqM) Est GFR (CKD-EPI)NonAf (>60 ml/min/1.73 sqM) Glucose (74-99) mg/dL Plasma Lactic Acid Ramsey (0.7-2.0) mmol/L Calcium (8.4-10.2) mg/dL Total Bilirubin (0.2-1.3) mg/dL AST (17-59) U/L ALT (4-49) U/L Alkaline Phosphatase (38-126) U/L Total Protein (6.3-8.2) g/dL Albumin (3.5-5.0) g/dL Lipase 103 (23-300) U/L - EKG Data -: EKG Interpreted by Me (EKG sinus 82 [place] 142 QRS 93 QTc 366) - Radiology Data Radiology results: report reviewed, image reviewed Critical Care Time Critical Care Time: Yes Total Critical Care Time: 31 Disposition Clinical Impression: Hyperkalemia, UTI (urinary tract infection), Neurogenic bladder, Spina bifida occulta, COREY (acute kidney injury), Bilateral hydronephrosis Disposition: ADMITTED IP TO THIS [facility] Condition: Serious Is patient prescribed a controlled substance at d/c from ED?: No Time of Disposition: 19:20
[2023-10-15 18:25] LABS: ALT 15 U/L (4-49); AST 16 U/L (17-59); African American GFR (CKD) 7 (>60 ml/min/1.73 sqM); Albumin 3.3 g/dL (3.5-5.0); Alkaline Phosphatase 77 U/L (38-126); Anion Gap 13 mmol/L; Calcium 9.6 mg/dL (8.4-10.2); Carbon Dioxide 14 mmol/L (22-30); Chloride 107 mmol/L (98-107); Glucose 138 mg/dL (74-99); Non-African American GFR(CKD) 6 (>60 ml/min/1.73 sqM); Sodium 134 mmol/L (137-145); Total Bilirubin 0.5 mg/dL (0.2-1.3); Total Protein 6.7 g/dL (6.3-8.2)
[2023-10-15 18:57] LABS: Blood Urea Nitrogen 111 mg/dL (9-20)
[2023-10-15] MEDS ORDERED: NALOXONE 0.4 MG/ML 1 ML VIAL IV PRN (19:26)
[2023-10-15] MEDS ORDERED: ONDANSETRON 4 MG/2 ML VIAL IVP PRN (19:37)
[2023-10-15] MEDS: LIDOCAINE 2% GLYDO JELLY 6 ML APPL TOPICAL STA (19:51)
[2023-10-15] MEDS: LIDOCAINE VISCOUS 2% 15 ML CUP MUCOUS MEM STA (19:51)
[2023-10-15] MEDS: DEXTROSE 50% SYRINGE 50 ML IVP STA (20:11)
[2023-10-15] MEDS: INSULIN REGULAR 100 UNIT/ML VIAL (IV) IV ONE (20:16)
[2023-10-15] MEDS: SODIUM BICARB 8.4% 50 ML SYR (1 MEQ/ML) IV STA (20:18)
[2023-10-15] MEDS: SODIUM CHLORIDE 0.9% 1,000 ML IV STA (20:19)
[2023-10-15] MEDS: SODIUM CHLORIDE 0.9% 500 ML 500 ML IV STA (20:20)
[2023-10-15] MEDS: SODIUM ZIRCONIUM CYCLOSILICATE 10 GM PACKET PO ONE (20:25)
[2023-10-15] MEDS: SODIUM POLYSTYRENE SULFONATE 15 GM/60 ML BOTTLE PO STA (20:30)
[2023-10-15] MEDS: SODIUM CHLORIDE 0.9% 1,000 ML IV SCH (20:35)
[2023-10-15] MEDS: LIDOCAINE 2% URO-JET JELLY 5 ML KIT URETHRAL ONE (21:55)
[2023-10-15 22:01] LABS: ALT 17 U/L (4-49); AST 15 U/L (17-59); African American GFR (CKD) 7 (>60 ml/min/1.73 sqM); Albumin 3.3 g/dL (3.5-5.0); Alkaline Phosphatase 83 U/L (38-126); Anion Gap 14 mmol/L; Calcium 9.4 mg/dL (8.4-10.2); Carbon Dioxide 17 mmol/L (22-30); Chloride 108 mmol/L (98-107); Glucose 110 mg/dL (74-99); Non-African American GFR(CKD) 6 (>60 ml/min/1.73 sqM); Sodium 139 mmol/L (137-145); Total Bilirubin 0.5 mg/dL (0.2-1.3); Total Protein 6.7 g/dL (6.3-8.2)
[2023-10-15 22:49] LABS: Blood Urea Nitrogen 106 mg/dL (9-20); Potassium 6.1 mmol/L (3.5-5.1)
[2023-10-15] MEDS: PIPERACILLIN-TAZOBACTAM 3.375 GM in SODIUM CHLORIDE 0.9% 100 ML IVPB STA (23:20)
[2023-10-15] MEDS: SODIUM CHLORIDE 0.9% 1,000 ML IV ONE (23:20)
--- NOTE | 2023-10-16 00:41 | US ---
EXAMINATION TYPE: US renals and bladder DATE OF EXAM: 10/15/2023 COMPARISON: CT: Today CLINICAL INDICATION: Male, 63 years old with history of pain; pain bilaterally EXAM MEASUREMENTS: Right Kidney: 13.0 x 6.6 x 7.2 cm Left Kidney: 11.6 x 7.3 x 6.7 cm Right Kidney: Moderate hydro seen Left Kidney: Moderate hydro seen Bladder: Not well visualized due to bassett Bilateral Jets seen: No IMPRESSION: 1. Bassett catheter in place decompressing the urinary bladder. Bladder is not well visualized or asse ssed. 2. Moderate bilateral hydronephrosis.
[2023-10-16] MEDS: DEXTROSE 5% IN WATER 1,000 ML with SODIUM BICARB (1 MEQ/ML) 150 ML IV SCH (00:42)
[2023-10-16] MEDS: DEXTROSE 50% SYRINGE 50 ML IVP STA (00:42)
[2023-10-16] MEDS: INSULIN REGULAR 100 UNIT/ML VIAL (IV) IV ONE (00:48)
[2023-10-16] MEDS: SODIUM BICARB 8.4% 50 ML SYR (1 MEQ/ML) IV STA (00:49)
[2023-10-16] MEDS: SODIUM ZIRCONIUM CYCLOSILICATE 10 GM PACKET PO SCH (00:53)
--- NOTE | 2023-10-16 01:00 | CT ---
EXAMINATION TYPE: CT abdomen pelvis wo con CT DLP: 842.7 mGycm, Automated exposure control for dose reduction was used. DATE OF EXAM: 10/15/2023 8:57 PM COMPARISON: None. CLINICAL INDICATION:Male, 63 years old with history of pain; abdominal pain, poss UTI. hx of kidney p roblems and spina bifida TECHNIQUE: Axial CT of the abdomen and pelvis. Sagittal and coronal reformats were created on a [employer] workstation. Contrast used: mL of , (none if empty) Oral contrast used: without Oral Contrast (none if empty) FINDINGS: Included lung bases show mild strandy opacity suggesting of subsegmental atelectasis. No sizable pleu ral or pericardial effusion. Heart size upper normal. Heart appears mildly enlarged. There is promine nt pericardial fat as well. The liver, spleen, pancreas show no acute abnormalities. Status post cholecystectomy. Nondilated biliary tree. No free fluid or free air. No adenopathy. Heterogeneous material likely food stuffs mixed with some contrast fills and mildly distends the stom ach. There is no evidence of small bowel obstruction. The appendix is not clearly identified but no i nflammatory processes seen. There is mild/moderate stool throughout the colon without acute abnormality seen. There are several d istal diverticula suggested without evidence of diverticulitis. There is moderately severe bilateral hydronephrosis, with dilated ureters seen down to the level of t he urinary bladder. No obstructing calculi seen to account for this. There are radiodensities which a ppear to be metallic and throwing beam hardening artifact located near the anterior aspect of the lef t renal pelvis, correlate clinically. Bladder appears decompressed with a Haas in its lumen. There are severe chronic osseous deformities, with severely exaggerated lumbar lordosis and mild/mode rate degenerative changes. Chronic degenerative changes in the region of the upper sacrum. No clearly acute bony abnormalities are seen. IMPRESSION: 1. Moderately severe bilateral hydronephrosis, with dilated ureters seen down to the level of the th e urinary bladder. No obstructing calculi seen to account for this. There are radiodensities which ap pear to be metallic and throwing beam hardening artifact located near the anterior aspect of the left renal pelvis, correlate clinically. 2. Bladder appears decompressed with a Haas in its lumen. 3. Other chronic and likely incidental findings, as described above.
[2023-10-16 02:36] LABS: ALT 14 U/L (4-49); AST 13 U/L (17-59); African American GFR (CKD) 8 (>60 ml/min/1.73 sqM); Albumin 2.5 g/dL (3.5-5.0); Alkaline Phosphatase 66 U/L (38-126); Anion Gap 12 mmol/L; Blood Urea Nitrogen 95 mg/dL (9-20); Carbon Dioxide 20 mmol/L (22-30); Chloride 109 mmol/L (98-107); Glucose 170 mg/dL (74-99); Non-African American GFR(CKD) 7 (>60 ml/min/1.73 sqM); Potassium 4.4 mmol/L (3.5-5.1); Sodium 141 mmol/L (137-145); Total Bilirubin 0.3 mg/dL (0.2-1.3); Total Protein 5.5 g/dL (6.3-8.2)
[2023-10-16] MEDS: PIPERACILLIN-TAZOBACTAM 3.375 GM in SODIUM CHLORIDE 0.9% 100 ML IVPB SCH ×2 (03:11→17:01)
[2023-10-16 08:34] LABS: Basophils % (A) 0 %; Eosinophils # (A) 0.5 k/uL (0-0.7); Eosinophils % (A) 4 %; HCT 34.6 % (39.0-53.0); HGB 11.2 gm/dL (13.0-17.5); Lymphocytes % (A) 9 %; MCH 28.3 pg (25.0-35.0); MCHC 32.2 g/dL (31.0-37.0); MCV 87.8 fL (80.0-100.0); Mean Platelet Volume 8.2; Monocytes # (A) 0.9 k/uL (0-1.0); Monocytes % (A) 8 %; Neutrophils % (A) 76 %; Platelet Count 253 k/uL (150-450); RBC 3.95 m/uL (4.30-5.90)
[2023-10-16 08:53] LABS: ALT 15 U/L (4-49); AST 15 U/L (17-59); African American GFR (CKD) 9 (>60 ml/min/1.73 sqM); Albumin 2.7 g/dL (3.5-5.0); Alkaline Phosphatase 65 U/L (38-126); Anion Gap 12 mmol/L; Blood Urea Nitrogen 85 mg/dL (9-20); Calcium 8.1 mg/dL (8.4-10.2); Carbon Dioxide 20 mmol/L (22-30); Chloride 108 mmol/L (98-107); Glucose 123 mg/dL (74-99); Magnesium 2.1 mg/dL (1.6-2.3); Non-African American GFR(CKD) 8 (>60 ml/min/1.73 sqM); Phosphorus 5.5 mg/dL (2.5-4.5); Potassium 4.3 mmol/L (3.5-5.1); Sodium 140 mmol/L (137-145); Total Bilirubin 0.3 mg/dL (0.2-1.3); Total Protein 5.8 g/dL (6.3-8.2)
[2023-10-16] MEDS: SODIUM CHLORIDE 0.9% 1,000 ML IV SCH (11:41)
--- NOTE | 2023-10-16 11:43 | P.NPCON ---
History of Present Illness - Reason for Consult acute renal failure - History of Present Illness Reason for consultation: Acute kidney injury History of present illness: Patient is a 63-year-old male seen in renal consultation for acute kidney injury. Patient's creatinine in August 2023 was 1.27 and 0.9 in July 2022. Patient denies any personal history of kidney disease. Creatinine this admission was 8.77 and is down to 6.9 today. Patient came to the hospital due to nonfunctioning Haas catheter. Otherwise patient states he has been feeling fine. He does admit to poor oral intake and did have some vomiting and diarrhea intermittently. Haas catheter was exchanged in the ER. Patient has a chronic suprapubic catheter. Patient has history of spina bifida. Patient also states he had a left ureteral stent placed in 2018 and is not sure if he still has a ureteral stent in place or not. He was taking triamterene and hydrochlorothiazide outpatient. Patient's potassium level on admission was elevated at 7 and has improved with medical management. It was 4.3 this morning. Patient also noted to be acidotic and is currently maintained on bicarb drip. Hemodynamically stable. Denies use of nonsteroidals. Denies family history of renal disease. Denies history of coronary artery disease. Denies history of diabetes. Vital signs are stable. General: No acute distress. HEENT: Head exam is unremarkable. LUNGS: No audible rhonchi or wheezes. HEART: Rate and Rhythm are regular. ABDOMEN: Nontender. EXTREMITITES: No edema. 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 -sores on right foot, wound left side back and left hip. Past Anesthesia/Blood Transfusion Reactions: No Reported Reaction Additional Past Anesthesia/Blood Transfusion Reaction / Comment(s): . Past Psychological History: No Psychological Hx Reported Past Drug Use History: None Reported - Past Family History Mother Family Medical History: Cancer Additional Family Medical History / Comment(s): breast cancer, leukemia Sister(s) Family Medical History: Cancer Additional Family Medical History / Comment(s): breast cancer Father Family Medical History: Cancer Medications and Allergies Home Medications Medication Instructions Recorded Confirmed Type Metoprolol Succinate (ER) [Toprol 25 mg PO BID 11/23/20 10/15/23 History XL] Triamterene/Hydrochlorothiazid 1 tab PO DAILY 11/23/20 10/15/23 History [Triamterene-Hctz 37.5-25 mg Tb] Ciprofloxacin HCl [Cipro] 500 mg PO BID 10/15/23 10/15/23 History Allergies Allergy/AdvReac Type Severity Reaction Status Date / Time No Known Allergies Allergy Verified 10/15/23 16:58 Physical Exam Vitals: Vital Signs Temp Pulse Resp BP Pulse Ox 10/16/23 11:05 97.8 F 81 20 136/63 99 10/16/23 07:28 98.3 F 84 18 136/79 100 10/16/23 06:00 86 18 123/73 95 10/16/23 03:00 87 18 133/73 95 10/15/23 23:00 89 17 102/58 10/15/23 20:33 98 18 114/70 10/15/23 14:02 97.7 F 89 18 167/84 96 Results - Lab Results Most recent lab results Calcium 8.1 mg/dL (8.4-10.2) L 10/16/23 07:23 Phosphorus 5.5 mg/dL (2.5-4.5) H 10/16/23 07:23 Magnesium 2.1 mg/dL (1.6-2.3) 10/16/23 07:23 10/16/23 07:23 10/16/23 07:23 Assessment and Plan Plan: Assessment: 1. Acute kidney injury secondary to ATN secondary to hypovolemia and obstructive uropathy. Creatinine 8.7 on admission and down to 6.9 this morning. Creatinine noted be 1.27 in August 2023 and as low as 0.9 in July 2022. 2. Bilateral hydronephrosis noted on CAT scan. 3. Hyperkalemia secondary to acute kidney injury, acidosis and use of triamterene. Improved with medical management. 4. Metabolic acidosis secondary to acute kidney injury. Improved with bicarb drip. 5. Spina bifida. 6. Chronic suprapubic catheter. Exchanged in the ER this admission. Plan: Change IV fluids to normal saline. Add oral bicarb. Continue to hold triamterene and hydrochlorothiazide. Continue to assess daily for need for renal replacement therapy. No urgency at this time. Consult urology due to hydronephrosis. Thank you for the consultation. I will continue to follow the patient with you during his hospital stay.
[2023-10-16] MEDS: SODIUM BICARBONATE TAB 650 MG TAB PO SCH (11:45)
--- NOTE | 2023-10-16 12:59 | P.HPIM ---
History of Present Illness 63-year-old male came in because of nonfunctioning Haas catheter patient is found to be in acute renal failure with creatinine going up to 8.77 came down to 6 patient baseline is around 0.9. Patient is a suprapubic catheter. Patient has a history of spina bifida patient was recently treated for urinary tract infection secondary to the catheter. Patient is hemodynamically stable patient does not appear to be septic patient has mild leukocytosis. Patient was started on antibiotics although no urine culture is available we will discontinue the antibiotics at this time catheter was replaced. REVIEW OF SYSTEMS: CONSTITUTIONAL: No fever, no malaise, no fatigue. HEENT: No recent visual problems or hearing problems. Denied any sore throat. CARDIOVASCULAR: No chest pain, orthopnea, PND, no palpitations, no syncope. PULMONARY: No shortness of breath, no cough, no hemoptysis. GASTROINTESTINAL: No diarrhea, no nausea, no vomiting, no abdominal pain. NEUROLOGICAL: No headaches, no weakness, no numbness. HEMATOLOGICAL: Denies any bleeding or petechiae. GENITOURINARY: Denies any burning micturition, frequency, or urgency. MUSCULOSKELETAL/RHEUMATOLOGICAL: Denies any joint pain, swelling, or any muscle pain. ENDOCRINE: Denies any polyuria or polydipsia. The rest of the 14-point review of systems is negative. PHYSICAL EXAMINATION: GENERAL: The patient is alert and oriented x3, not in any acute distress. Well developed, well nourished. HEENT: Pupils are round and equally reacting to light. EOMI. No scleral icterus. No conjunctival pallor. Normocephalic, atraumatic. No pharyngeal erythema. No thyromegaly. CARDIOVASCULAR: S1 and S2 present. No murmurs, rubs, or gallops. PULMONARY: Chest is clear to auscultation, no wheezing or crackles. ABDOMEN: Soft, nontender, nondistended, normoactive bowel sounds. No palpable organomegaly. MUSCULOSKELETAL: No joint swelling or deformity. EXTREMITIES: No cyanosis, clubbing, or pedal edema. NEUROLOGICAL: Gross neurological examination did not reveal any focal deficits. SKIN: No rashes. Assessment and plan -Acute renal failure probably secondary to obstructive uropathy there may be a competent of acute renal tubular necrosis as well patient will be continued on IV fluids we will hold off on diuretics at this time catheter was replaced which is draining well -Bilateral hydronephrosis secondary to obstruction of the suprapubic catheter -Hyperkalemia secondary to renal failure which is improving -Metabolic acidosis secondary to acute renal failure patient is on bicarbonate drip which was started by nephrology -Spina bifida: Supportive care patient is mostly wheelchair-bound DVT prophylaxis: Past Medical History Past Medical History: GERD/Reflux, Hypertension, Osteoarthritis (OA), Pneumonia Additional Past Medical History / Comment(s): uti's, neurogenic bladder,.hx Spina Bifida, lower lt lumbar decub ulcer,hiatal hernia, past urethral stricture, has suprapubic catheter, sore to left hip, "kidneys not functioning right due to scar tissue", hx skin cancer on back, 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 -sores on right foot, wound left side back and left hip. Past Anesthesia/Blood Transfusion Reactions: No Reported Reaction Additional Past Anesthesia/Blood Transfusion Reaction / Comment(s): . Past Psychological History: No Psychological Hx Reported Past Drug Use History: None Reported - Past Family History Mother Family Medical History: Cancer Additional Family Medical History / Comment(s): breast cancer, leukemia Sister(s) Family Medical History: Cancer Additional Family Medical History / Comment(s): breast cancer Father Family Medical History: Cancer Medications and Allergies Home Medications Medication Instructions Recorded Confirmed Type Metoprolol Succinate (ER) [Toprol 25 mg PO BID 11/23/20 10/15/23 History XL] Triamterene/Hydrochlorothiazid 1 tab PO DAILY 11/23/20 10/15/23 History [Triamterene-Hctz 37.5-25 mg Tb] Ciprofloxacin HCl [Cipro] 500 mg PO BID 10/15/23 10/15/23 History Allergies Allergy/AdvReac Type Severity Reaction Status Date / Time No Known Allergies Allergy Verified 10/15/23 16:58 Physical Exam Vitals: Vital Signs Temp Pulse Resp BP Pulse Ox 10/16/23 12:12 98.0 F 82 17 140/79 98 10/16/23 11:05 97.8 F 81 20 136/63 99 10/16/23 07:28 98.3 F 84 18 136/79 100 10/16/23 06:00 86 18 123/73 95 10/16/23 03:00 87 18 133/73 95 10/15/23 23:00 89 17 102/58 10/15/23 20:33 98 18 114/70 10/15/23 14:02 97.7 F 89 18 167/84 96 Results CBC & Chem 7: 10/16/23 07:23 10/16/23 07:23 Labs: Abnormal Lab Results - Last 24 Hours (Table) 10/15/23 10/15/23 10/15/23 Range/Units 14:59 17:42 21:20 WBC 13.8 H (3.8-10.6) k/uL RBC (4.30-5.90) m/uL Hgb (13.0-17.5) gm/dL Hct (39.0-53.0) % Neutrophils # 11.2 H (1.3-7.7) k/uL Lymphocytes # 0.9 L (1.0-4.8) k/uL Sodium 134 L (137-145) mmol/L Potassium 7.0 H* 6.1 H* (3.5-5.1) mmol/L Chloride 108 H (98-107) mmol/L Carbon Dioxide 14 L 17 L (22-30) mmol/L BUN 111 H* 106 H* (9-20) mg/dL Creatinine 8.77 H* 8.72 H* (0.66-1.25) mg/dL Glucose 138 H 110 H (74-99) mg/dL Calcium (8.4-10.2) mg/dL Phosphorus (2.5-4.5) mg/dL AST 16 L 15 L (17-59) U/L Total Protein (6.3-8.2) g/dL Albumin 3.3 L 3.3 L (3.5-5.0) g/dL 10/16/23 10/16/23 10/16/23 Range/Units 02:04 07:23 07:23 WBC 12.0 H (3.8-10.6) k/uL RBC 3.95 L (4.30-5.90) m/uL Hgb 11.2 L (13.0-17.5) gm/dL Hct 34.6 L (39.0-53.0) % Neutrophils # 9.0 H (1.3-7.7) k/uL Lymphocytes # (1.0-4.8) k/uL Sodium (137-145) mmol/L Potassium (3.5-5.1) mmol/L Chloride 109 H 108 H (98-107) mmol/L Carbon Dioxide 20 L 20 L (22-30) mmol/L BUN 95 H 85 H (9-20) mg/dL Creatinine 7.37 H* 6.90 H (0.66-1.25) mg/dL Glucose 170 H 123 H (74-99) mg/dL Calcium 8.0 L 8.1 L (8.4-10.2) mg/dL Phosphorus 5.5 H (2.5-4.5) mg/dL AST 13 L 15 L (17-59) U/L Total Protein 5.5 L 5.8 L (6.3-8.2) g/dL Albumin 2.5 L 2.7 L (3.5-5.0) g/dL
[2023-10-16] MEDS: MORPHINE SULFATE 4 MG/ML SYRINGE IV PRN (22:10)
--- NOTE | 2023-10-17 06:30 | P.GSCN ---
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 He sees for this and used to see Dr Andrade for years. . He had been in the [facility] also for many years. He has chronic hydronephrosis lt greater than right . The right is now hydronephrotic And the left is poorly functioning .The patient has renal insufficiency however the suprapubic tube was not functioning upon admission. He does have a history of a sacral decubitus Review of Systems All systems: negative - Constitutional Denies fever, Denies weight loss - EENT Eyes: denies blurred vision Ears, nose, mouth and throat: Denies dysphagia - Cardiovascular Denies chest pain, Denies shortness of breath - Respiratory Denies cough, Denies 7 - Gastrointestinal Reports as per HPI - Genitourinary Denies dysuria, Denies hematuria - Integumentary Denies rash, Denies unusual bruising - Neurological Denies headaches, Denies syncope - Hematologic/Lymphatic Denies easy bleeding, Denies easy bruising Past Medical History Past Medical History: GERD/Reflux, Hypertension, Osteoarthritis (OA), Pneumonia Additional Past Medical History / Comment(s): uti's, neurogenic bladder,.hx Spina Bifida, lower lt lumbar decub ulcer,hiatal hernia, past urethral stricture, has suprapubic catheter, sore to left hip, "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 -sores on right foot, wound left side back and left hip. Past Anesthesia/Blood Transfusion Reactions: No Reported Reaction Additional Past Anesthesia/Blood Transfusion Reaction / Comm: . Past Psychological History: No Psychological Hx Reported Past Drug Use History: None Reported - Past Family History Mother Family Medical History: Cancer Additional Family Medical History / Comment(s): breast cancer, leukemia Sister(s) Family Medical History: Cancer Additional Family Medical History / Comment(s): breast cancer Father Family Medical History: Cancer Medications and Allergies Home Medications Medication Instructions Recorded Confirmed Type Metoprolol Succinate (ER) [Toprol 25 mg PO BID 11/23/20 10/15/23 History XL] Triamterene/Hydrochlorothiazid 1 tab PO DAILY 11/23/20 10/15/23 History [Triamterene-Hctz 37.5-25 mg Tb] Ciprofloxacin HCl [Cipro] 500 mg PO BID 10/15/23 10/15/23 History Allergies Allergy/AdvReac Type Severity Reaction Status Date / Time No Known Allergies Allergy Verified 10/15/23 16:58 Surgical - Exam Vital Signs Temp Pulse Resp BP Pulse Ox 97.7 F 89 18 167/84 96 10/15/23 14:02 10/15/23 14:02 10/15/23 14:02 10/15/23 14:02 10/15/23 14:02 Results - Labs 10/16/23 07:23 10/16/23 07:23 Abnormal Lab Results - Last 24 Hours (Table) 10/15/23 10/15/23 10/15/23 Range/Units 14:59 17:42 21:20 WBC 13.8 H (3.8-10.6) k/uL RBC (4.30-5.90) m/uL Hgb (13.0-17.5) gm/dL Hct (39.0-53.0) % Neutrophils # 11.2 H (1.3-7.7) k/uL Lymphocytes # 0.9 L (1.0-4.8) k/uL Sodium 134 L (137-145) mmol/L Potassium 7.0 H* 6.1 H* (3.5-5.1) mmol/L Chloride 108 H (98-107) mmol/L Carbon Dioxide 14 L 17 L (22-30) mmol/L BUN 111 H* 106 H* (9-20) mg/dL Creatinine 8.77 H* 8.72 H* (0.66-1.25) mg/dL Glucose 138 H 110 H (74-99) mg/dL Calcium (8.4-10.2) mg/dL Phosphorus (2.5-4.5) mg/dL AST 16 L 15 L (17-59) U/L Total Protein (6.3-8.2) g/dL Albumin 3.3 L 3.3 L (3.5-5.0) g/dL 10/16/23 10/16/23 10/16/23 Range/Units 02:04 07:23 07:23 WBC 12.0 H (3.8-10.6) k/uL RBC 3.95 L (4.30-5.90) m/uL Hgb 11.2 L (13.0-17.5) gm/dL Hct 34.6 L (39.0-53.0) % Neutrophils # 9.0 H (1.3-7.7) k/uL Lymphocytes # (1.0-4.8) k/uL Sodium (137-145) mmol/L Potassium (3.5-5.1) mmol/L Chloride 109 H 108 H (98-107) mmol/L Carbon Dioxide 20 L 20 L (22-30) mmol/L BUN 95 H 85 H (9-20) mg/dL Creatinine 7.37 H* 6.90 H (0.66-1.25) mg/dL Glucose 170 H 123 H (74-99) mg/dL Calcium 8.0 L 8.1 L (8.4-10.2) mg/dL Phosphorus 5.5 H (2.5-4.5) mg/dL AST 13 L 15 L (17-59) U/L Total Protein 5.5 L 5.8 L (6.3-8.2) g/dL Albumin 2.5 L 2.7 L (3.5-5.0) g/dL Diabetes panel 10/15/23 10/15/23 10/16/23 Range/Units 17:42 21:20 02:04 Sodium 134 L 139 141 (137-145) mmol/L Potassium 7.0 H* 6.1 H* 4.4 (3.5-5.1) mmol/L Chloride 107 108 H 109 H (98-107) mmol/L Carbon Dioxide 14 L 17 L 20 L (22-30) mmol/L BUN 111 H* 106 H* 95 H (9-20) mg/dL Creatinine 8.77 H* 8.72 H* 7.37 H* (0.66-1.25) mg/dL Glucose 138 H 110 H 170 H (74-99) mg/dL Calcium 9.6 9.4 8.0 L (8.4-10.2) mg/dL AST 16 L 15 L 13 L (17-59) U/L ALT 15 17 14 (4-49) U/L Alkaline Phosphatase 77 83 66 (38-126) U/L Total Protein 6.7 6.7 5.5 L (6.3-8.2) g/dL Albumin 3.3 L 3.3 L 2.5 L (3.5-5.0) g/dL 10/16/23 Range/Units 07:23 Sodium 140 (137-145) mmol/L Potassium 4.3 (3.5-5.1) mmol/L Chloride 108 H (98-107) mmol/L Carbon Dioxide 20 L (22-30) mmol/L BUN 85 H (9-20) mg/dL Creatinine 6.90 H (0.66-1.25) mg/dL Glucose 123 H (74-99) mg/dL Calcium 8.1 L (8.4-10.2) mg/dL AST 15 L (17-59) U/L ALT 15 (4-49) U/L Alkaline Phosphatase 65 (38-126) U/L Total Protein 5.8 L (6.3-8.2) g/dL Albumin 2.7 L (3.5-5.0) g/dL Calcium panel 10/15/23 10/15/23 10/16/23 Range/Units 17:42 21:20 02:04 Calcium 9.6 9.4 8.0 L (8.4-10.2) mg/dL Phosphorus (2.5-4.5) mg/dL Albumin 3.3 L 3.3 L 2.5 L (3.5-5.0) g/dL 10/16/23 Range/Units 07:23 Calcium 8.1 L (8.4-10.2) mg/dL Phosphorus 5.5 H (2.5-4.5) mg/dL Albumin 2.7 L (3.5-5.0) g/dL Pituitary panel 10/15/23 10/15/23 10/16/23 Range/Units 17:42 21:20 02:04 Sodium 134 L 139 141 (137-145) mmol/L Potassium 7.0 H* 6.1 H* 4.4 (3.5-5.1) mmol/L Chloride 107 108 H 109 H (98-107) mmol/L Carbon Dioxide 14 L 17 L 20 L (22-30) mmol/L BUN 111 H* 106 H* 95 H (9-20) mg/dL Creatinine 8.77 H* 8.72 H* 7.37 H* (0.66-1.25) mg/dL Glucose 138 H 110 H 170 H (74-99) mg/dL Calcium 9.6 9.4 8.0 L (8.4-10.2) mg/dL 10/16/23 Range/Units 07:23 Sodium 140 (137-145) mmol/L Potassium 4.3 (3.5-5.1) mmol/L Chloride 108 H (98-107) mmol/L Carbon Dioxide 20 L (22-30) mmol/L BUN 85 H (9-20) mg/dL Creatinine 6.90 H (0.66-1.25) mg/dL Glucose 123 H (74-99) mg/dL Calcium 8.1 L (8.4-10.2) mg/dL Adrenal panel 10/15/23 10/15/23 10/16/23 Range/Units 17:42 21:20 02:04 Sodium 134 L 139 141 (137-145) mmol/L Potassium 7.0 H* 6.1 H* 4.4 (3.5-5.1) mmol/L Chloride 107 108 H 109 H (98-107) mmol/L Carbon Dioxide 14 L 17 L 20 L (22-30) mmol/L BUN 111 H* 106 H* 95 H (9-20) mg/dL Creatinine 8.77 H* 8.72 H* 7.37 H* (0.66-1.25) mg/dL Glucose 138 H 110 H 170 H (74-99) mg/dL Calcium 9.6 9.4 8.0 L (8.4-10.2) mg/dL Total Bilirubin 0.5 0.5 0.3 (0.2-1.3) mg/dL AST 16 L 15 L 13 L (17-59) U/L ALT 15 17 14 (4-49) U/L Alkaline Phosphatase 77 83 66 (38-126) U/L Total Protein 6.7 6.7 5.5 L (6.3-8.2) g/dL Albumin 3.3 L 3.3 L 2.5 L (3.5-5.0) g/dL 10/16/23 Range/Units 07:23 Sodium 140 (137-145) mmol/L Potassium 4.3 (3.5-5.1) mmol/L Chloride 108 H (98-107) mmol/L Carbon Dioxide 20 L (22-30) mmol/L BUN 85 H (9-20) mg/dL Creatinine 6.90 H (0.66-1.25) mg/dL Glucose 123 H (74-99) mg/dL Calcium 8.1 L (8.4-10.2) mg/dL Total Bilirubin 0.3 (0.2-1.3) mg/dL AST 15 L (17-59) U/L ALT 15 (4-49) U/L Alkaline Phosphatase 65 (38-126) U/L Total Protein 5.8 L (6.3-8.2) g/dL Albumin 2.7 L (3.5-5.0) g/dL - Imaging CT scan - abdomen: report reviewed, image reviewed CT scan - pelvis: report reviewed, image reviewed
--- NOTE | 2023-10-17 07:47 | P.PN ---
Subjective Progress Note Date: 10/17/23 The patient has myelomeningocele. His chronic sp tube plugged. He is in the hospital to deal with this. The sp was changed. His uo is good now. His cr is coming down. He has know chronic bilateral hydro lt geater than right. the right was worsened due to the retention Objective - Vital Signs Vital signs: Vital Signs Temp 97.7 F 10/17/23 04:00 Pulse 77 10/17/23 04:00 Resp 16 10/17/23 04:00 BP 123/73 10/17/23 04:00 Pulse Ox 97 10/17/23 04:00 FiO2 Intake & Output 10/16/23 10/16/23 10/17/23 06:59 18:59 06:59 Output Total 1000 600 Balance -1000 -600 Weight 70.307 kg Output: Urine 1000 600 Other: Voiding Method Indwelling Catheter Indwelling Catheter - Labs CBC & Chem 7: 10/16/23 07:23 10/16/23 07:23 Labs: Abnormal Lab Results - Last 24 Hours (Table) 10/16/23 10/16/23 Range/Units 07:23 07:23 WBC 12.0 H (3.8-10.6) k/uL RBC 3.95 L (4.30-5.90) m/uL Hgb 11.2 L (13.0-17.5) gm/dL Hct 34.6 L (39.0-53.0) % Neutrophils # 9.0 H (1.3-7.7) k/uL Chloride 108 H (98-107) mmol/L Carbon Dioxide 20 L (22-30) mmol/L BUN 85 H (9-20) mg/dL Creatinine 6.90 H (0.66-1.25) mg/dL Glucose 123 H (74-99) mg/dL Calcium 8.1 L (8.4-10.2) mg/dL Phosphorus 5.5 H (2.5-4.5) mg/dL AST 15 L (17-59) U/L Total Protein 5.8 L (6.3-8.2) g/dL Albumin 2.7 L (3.5-5.0) g/dL Microbiology - Last 24 Hours (Table) 10/15/23 14:55 Blood Culture - Preliminary Blood 10/15/23 14:30 Blood Culture - Preliminary Blood Assessment and Plan Assessment: Impression: myelomeningocele. chronic sp tube, chronic left hydronephrosis> right arf due to retention Plan Will continue to monitor the uo He wll continue to follow with the urologist at the [facility]. He will need supplies to irrigate his cath prn for debris obstructing the catheter. we will follow
--- NOTE | 2023-10-17 10:22 | P.CONS ---
History of Present Illness - Reason for Consult Consult date: 10/17/23 wound care - History of Present Illness This is a 63-year-old gentleman known to the wound care center with nonhealing ulcerations to the right medial ankle, left superior groin, and sacrum. Patient has history of spina bifida. Patient is often noncompliant.Original cause of wound was Pressure Injury. The date acquired was: 02/26/2022. The wound has been in treatment 83 weeks. The wound is currently classified as a Category/Stage II wound with etiology of Pressure Ulcer and is located on the Right,Medial Ankle. The wound measures 1.4cm length x 1.3cm width x 0.2cm depth; 1.429cm^2 area and 0.286cm^3 volume. There is Fat Layer (Subcutaneous Tissue) exposed. There is no tunneling or undermining noted. There is a medium amount of drainage noted. The wound margin is distinct with the outline attached to the wound base. There is large (67-100%) red granulation within the wound bed. There is a small (1-33%) amount of necrotic tissue within the wound bed. The periwound skin appearance exhibited: Callus, Scarring, Maceration. The periwound skin appearance did not exhibit: Crepitus, Excoriation, Induration, Rash, Dry/Scaly, Atrophie [place], Cyanosis, Ecchymosis, Hemosiderin Staining, Mottled, Pallor, Rubor, Erythema. Periwound temperature was noted as No Abnormality. Original cause of wound was Shear/Friction. The date acquired was: 03/25/2023. The wound has been in treatment 28 weeks. The wound is currently classified as a Category/Stage III wound with etiology of Pressure Ulcer and is located on the Back. The wound measures 2.7cm length x 3.3cm width x 0.1cm depth; 6.998cm^2 area and 0.7cm^3 volume. There is Fat Layer (Subcutaneous Tissue) exposed. There is no tunneling or undermining noted. There is a large amount of drainage noted. The wound margin is flat and intact. There is large (67-100%) red granulation within the wound bed. There is a small (1-33%) amount of necrotic tissue within the wound b ed. The periwound skin appearance exhibited: Callus, Scarring, Dry/Scaly. The periwound skin appearance did not exhibit: Crepitus, Excoriation, Induration, Rash, Maceration, Atrophie Priscilla, Cyanosis, Ecchymosis, Hemosiderin Staining, Mottled, Pallor, Rubor, Erythema. Periwound temperature was noted as No Abnormality. Original cause of wound was Shear/Friction. The date acquired was: 06/10/2023. The wound has been in treatment 17 weeks. The wound is currently classified as a Category/Stage II wound with etiology of Pressure Ulcer and is located on the Left,Superior Groin. The wound measures 0.8cm length x 1.1cm width x 0.1cm depth; 0.691cm^2 area and 0.069cm^3 volume. There is Fat Layer (Baptiste bcutaneous Tissue) exposed. There is a medium amount of drainage noted. The wound margin is flat and intact. There is large (67-100%) red granulation within the wound bed. There is a small (1-33%) amount of necrotic tissue within the wound bed. The periwound skin appearance exhibited: Erythema. The periwound skin appearance did not exhibit: Callus, Crepitus, Excoriation, Induration, Rash, Scarring, Dry/Scaly, Maceration, Atrophie [place], Cyanosis, Ecchymosis, Hemosiderin Staining, Mottled, Pallor, Rubor. The surrounding wound skin color is noted with erythema which is circumferential. Periwound temperature was noted as No Abnormality. Review Of Systems: Constitutional: No fever, no chills, no night sweats. No weight change. No weakness, fatigue or lethargy. No daytime sleepiness. Integumentary:reports wounds, no lesions. No rash or pruritus. No unusual bruising. No change in hair or nails. Physical exam: General Appearance: Alert, cooperative, no distress, appears stated age. Skin: See HPI all other Skin color, texture, tugor normal, no rashes or lesions. Neurologic: Alert oriented x3 Assessment: 1. Stage III pressure ulcer of lower back 2. Stage III pressure ulcer left heel 3. Stage II pressure ulcer right ankle 4. Spina bifida Plan: 1. Right medial ankle, left superior groin, sacrum: Apply absorptive silver, saline moist gauze, bordered foam. Change Saturday. Patient has an appointment in the wound care center on October 20 at 1030. If unable to make it please call to reschedule. Thank you for the consultation any questions please contact the wound care center DNP note has been reviewed and discussed with Dr. Barone and the impression and plan of care has been directed as dictated. 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 -sores on right foot, wound left side back and left hip. Past Anesthesia/Blood Transfusion Reactions: No Reported Reaction Additional Past Anesthesia/Blood Transfusion Reaction / Comm: . Past Psychological History: No Psychological Hx Reported Past Drug Use History: None Reported - Past Family History Mother Family Medical History: Cancer Additional Family Medical History / Comment(s): breast cancer, leukemia Sister(s) Family Medical History: Cancer Additional Family Medical History / Comment(s): breast cancer Father Family Medical History: Cancer Medications and Allergies Home Medications Medication Instructions Recorded Confirmed Type Metoprolol Succinate (ER) [Toprol 25 mg PO BID 11/23/20 10/15/23 History XL] Triamterene/Hydrochlorothiazid 1 tab PO DAILY 11/23/20 10/15/23 History [Triamterene-Hctz 37.5-25 mg Tb] Ciprofloxacin HCl [Cipro] 500 mg PO BID 10/15/23 10/15/23 History Allergies Allergy/AdvReac Type Severity Reaction Status Date / Time No Known Allergies Allergy Verified 10/15/23 16:58 Physical Exam Vitals: Vital Signs Temp Pulse Pulse Resp BP BP Pulse Ox 10/17/23 08:11 98.1 F 88 17 164/78 96 10/17/23 04:00 97.7 F 77 16 123/73 97 10/16/23 23:49 86 17 123/68 96 10/16/23 22:39 98 F 72 17 108/71 98 10/16/23 20:00 101 H 22 154/75 95 10/16/23 16:11 80 18 129/83 100 10/16/23 12:12 98.0 F 82 17 140/79 98 10/16/23 11:05 97.8 F 81 20 136/63 99 Intake and Output 10/16/23 10/17/23 10/17/23 22:59 06:59 14:59 Intake Total 118 Output Total 5705 379 8071 Balance -1000 -600 -1082 Intake: Oral 118 Output: Urine 3597 939 3690 Suprapubic 1200 Other: Voiding Method Indwelling Catheter Indwelling Catheter Indwelling Catheter Weight 70.307 kg Results CBC & Chem 7: 10/16/23 07:23 10/16/23 07:23 Labs: Microbiology - Last 24 Hours (Table) 10/15/23 14:55 Blood Culture - Preliminary Blood 10/15/23 14:30 Blood Culture - Preliminary Blood Assessment and Plan (1) Spina bifida occulta Current Visit: Yes Status: Acute Code(s): Q76.0 - SPINA BIFIDA OCCULTA SNOMED Code(s): 41409965 (2) Pressure ulcer of left hip, stage 3 Current Visit: No Status: Acute Code(s): L89.223 - PRESSURE ULCER OF LEFT HIP, STAGE 3 SNOMED Code(s): 84662790166750 (3) Pressure ulcer of left lower back, stage 3 Current Visit: No Status: Acute Code(s): L89.143 - PRESSURE ULCER OF LEFT LOWER BACK, STAGE 3 SNOMED Code(s): 982724793 (4) Pressure ulcer of right ankle, stage 2 Current Visit: No Status: Acute Code(s): L89.512 - PRESSURE ULCER OF RIGHT ANKLE, STAGE 2 SNOMED Code(s): 57071056598656
--- NOTE | 2023-10-17 10:32 | P.PN ---
Subjective Patient is seen in follow-up for acute kidney injury. Morning labs pending. Nonoliguric. On IV fluids. Oral intake fair. No vomiting or diarrhea. Vital signs are stable. General: No acute distress. HEENT: Head exam is unremarkable. LUNGS: No audible rhonchi or wheezes. HEART: Rate and Rhythm are regular. ABDOMEN: Nontender. EXTREMITITES: No edema. Objective - Vital Signs Vital signs: Vital Signs Temp 98.1 F 10/17/23 08:11 Pulse 88 10/17/23 08:11 Resp 17 10/17/23 08:11 BP 164/78 10/17/23 08:11 Pulse Ox 96 10/17/23 08:11 FiO2 Intake & Output 10/16/23 10/17/23 10/17/23 18:59 06:59 18:59 Intake Total 118 Output Total 7284 622 3032 Balance -1000 -600 -1082 Weight 70.307 kg Intake: Oral 118 Output: Urine 7578 431 7637 Suprapubic 1200 Other: Voiding Method Indwelling Catheter Indwelling Catheter Indwelling Catheter - Labs CBC & Chem 7: 10/16/23 07:23 10/16/23 07:23 Labs: Microbiology - Last 24 Hours (Table) 10/15/23 14:55 Blood Culture - Preliminary Blood 10/15/23 14:30 Blood Culture - Preliminary Blood Assessment and Plan Plan: Assessment: 1. Acute kidney injury secondary to ATN secondary to hypovolemia and obstructive uropathy. Creatinine 8.7 on admission - 6.9 yesterday. Creatinine noted be 1.27 in August 2023 and as low as 0.9 in July 2022. 2. Bilateral hydronephrosis noted on CAT scan. Urology following. 3. Hyperkalemia secondary to acute kidney injury, acidosis and use of triamterene. Improved with medical management. 4. Metabolic acidosis secondary to acute kidney injury. Improved with bicarb drip. Now on oral bicarb. 5. Spina bifida. 6. Chronic suprapubic catheter. Exchanged in the ER this admission. Plan: Decrease rate of normal saline to 50 cc an hour. Continue to hold triamterene and hydrochlorothiazide. Continue to assess daily for need for renal replacement therapy. No urgency at this time.
[2023-10-17 11:03] LABS: African American GFR (CKD) 15 (>60 ml/min/1.73 sqM); Anion Gap 10 mmol/L; Blood Urea Nitrogen 69 mg/dL (9-20); Calcium 8.6 mg/dL (8.4-10.2); Carbon Dioxide 23 mmol/L (22-30); Chloride 111 mmol/L (98-107); Glucose 113 mg/dL (74-99); Magnesium 1.8 mg/dL (1.6-2.3); Non-African American GFR(CKD) 13 (>60 ml/min/1.73 sqM); Potassium 3.9 mmol/L (3.5-5.1); Sodium 144 mmol/L (137-145)
[2023-10-17 11:57] LABS: Appearance,Urine Turbid (Clear); Bacteria,Urine Moderate /hpf; Bilirubin,Urine Negative (Negative); Blood,Urine Moderate (Negative); Color,Urine Colorless; Glucose,Urine (UA) Negative (Negative); Ketones,Urine Negative (Negative); Leukocyte Esterase,Urine Large (Negative); Mucus,Urine Rare /hpf; Nitrite,Urine Negative (Negative); Protein,Urine Trace (Negative); RBC,Urine 129 /hpf (0-5); Specific Gravity,Urine 1.011 (1.001-1.035); Squamous Epithelial Cell,Urine 1 /hpf (0-4); Urobilinogen,Urine <2.0 mg/dL (<2.0); WBC,Urine >182 /hpf (0-5)
[2023-10-17] MEDS: ERTAPENEM 0.5 GM in SODIUM CHLORIDE 0.9% 50 ML IVPB SCH (19:00)
[2023-10-17] MEDS: HEPARIN SODIUM,PORCINE 5,000 UNIT/ML 1 ML VIAL SQ SCH (20:24)
[2023-10-17] MEDS: ACETAMINOPHEN TAB 325 MG TAB PO PRN (20:25)
--- NOTE | 2023-10-17 21:12 | P.PN ---
Subjective Progress Note Date: 10/17/23 63-year-old male came in because of nonfunctioning Haas catheter patient is found to be in acute renal failure with creatinine going up to 8.77 came down to 6 patient baseline is around 0.9. Patient is a suprapubic catheter. Patient has a history of spina bifida patient was recently treated for urinary tract infection secondary to the catheter. Patient is hemodynamically stable patient does not appear to be septic patient has mild leukocytosis. Patient was started on antibiotics although no urine culture is available we will discontinue the antibiotics at this time catheter was replaced. 10/17/2023 Patient is evaluated today on the stepdown unit. His creatinine continues to improve and down to 4.52. Suprapubic catheter has been replaced. Urinalysis sent and was abnormal. He is being monitored off antibiotics at this time. We will consult ID for further recommendations. Patient feels like is puffy today he does have some mild pedal edema. His fluids have been decreased to 50 mls/hr. Review of Systems Constitutional: Denied any fatigue denied any fever. Cardio vascular: denied any chest pain, palpitations Gastrointestinal: denied any nausea, vomiting, diarrhea Pulmonary: Denied any shortness of breath cough Neurologic denied any new focal deficits All inpatient medications were reviewed and appropriate changes in these medications as dictated in the interval history and assessment and plan. PHYSICAL EXAMINATION: GENERAL: The patient is alert and oriented x3, not in any acute distress. Well developed, well nourished. HEENT: Pupils are round and equally reacting to light. EOMI. No scleral icterus. No conjunctival pallor. Normocephalic, atraumatic. No pharyngeal erythema. No thyromegaly. CARDIOVASCULAR: S1 and S2 present. No murmurs, rubs, or gallops. PULMONARY: Chest is clear to auscultation, no wheezing or crackles. ABDOMEN: Soft, nontender, nondistended, normoactive bowel sounds. No palpable organomegaly. MUSCULOSKELETAL: No joint swelling or deformity. EXTREMITIES: No cyanosis, clubbing, mild nonpitting pedal edema. NEUROLOGICAL: Gross neurological examination did not reveal any focal deficits. SKIN: No rashes. Assessment and plan -Acute renal failure probably secondary to obstructive uropathy there may be a competent of acute renal tubular necrosis as well patient will be continued on IV fluids, suprapubic catheter has been replaced -Abnormal urinalysis and possible UTI from the obstruction fo the suprapubic catheter. ID was consulted for recommendations regarding antibiotic therapy. Patient has leukocytosis. -Bilateral hydronephrosis secondary to obstruction of the suprapubic catheter -Hyperkalemia secondary to renal failure which is improving -Metabolic acidosis secondary to acute renal failure patient, improving and has been transition for sodium bicarb gtt to oral sodium bicarbonate tablets. -Spina bifida: Supportive care patient is mostly wheelchair-bound -Stage 2 pressure ulcer right ankle POA follows with wound care -Stage 2 pressure ulcer, lower back, POA -Stage 2 pressure ulcer, left groin, POA DVT prophylaxis:subcu heparin GI prophylaxis: Pepcid Full Code Repeat labs in the AM. ID and nephrology following closely. Wound care has evaluated the patient and patient is known to the wound care center. For the pressure ulcers to the right ankle, left groin and lower back wound care is recommending to apply absorptive silver saline moist gauze and bordered foam and change MWF. The impression and plan of care has been dictated by Robyn Rueda, Nurse Practitioner as directed. Dr. La MD I have performed a history and physical examination and medical decision making of this patient, discussed the same with the dictator, and agree with the dictators assessment and plan as written, documented as a scribe. Based on total visit time, I have performed more than 50% of this visit. Objective - Vital Signs Vital signs: Vital Signs Temp 98.3 F 10/17/23 12:00 Pulse 77 10/17/23 12:00 Resp 17 10/17/23 12:00 BP 155/89 10/17/23 12:00 Pulse Ox 99 10/17/23 12:00 FiO2 Intake & Output 10/16/23 10/17/23 10/17/23 18:59 06:59 18:59 Intake Total 118 Output Total 8297 379 0689 Balance -1000 600 -1082 Weight 70.307 kg Intake: Oral 118 Output: Urine 4337 941 3663 Suprapubic 1200 Other: Voiding Method Indwelling Catheter Indwelling Catheter Indwelling Catheter - Labs CBC & Chem 7: 10/16/23 07:23 10/17/23 09:57 Labs: Abnormal Lab Results - Last 24 Hours (Table) 10/17/23 10/17/23 Range/Units 09:57 10:00 Chloride 111 H (98-107) mmol/L BUN 69 H (9-20) mg/dL Creatinine 4.52 H (0.66-1.25) mg/dL Glucose 113 H (74-99) mg/dL Urine Protein Trace H (Negative) Urine Blood Moderate H (Negative) Ur Leukocyte Esterase Large H (Negative) Urine RBC 129 H (0-5) /hpf Urine WBC >182 H (0-5) /hpf Urine WBC Clumps Many H (None) /hpf Urine Bacteria Moderate H (None) /hpf Urine Mucus Rare H (None) /hpf Microbiology - Last 24 Hours (Table) 10/15/23 14:30 Blood Culture - Preliminary Blood 10/15/23 14:55 Blood Culture - Preliminary Blood Assessment and Plan Time with Patient: Less than 30
--- NOTE | 2023-10-17 21:54 | P.CONS ---
History of Present Illness - Reason for Consult Consult date: 10/17/23 - History of Present Illness Patient is a 63-year-old male with a past medical history significant for hypertension osteoarthritis spina bifida did have neurogenic bladder and history of recurrent UTIs sacral pressure ulcer patient was brought into the hospital 2 days ago for nonfunctioning Haas catheter with no urine output patient's symptoms have any going on for a day and 2 and has been of evaluated at [facility] initially however his Haas catheter was not changed not very clear the patient has any cultures done patient has been evaluated on presentation to the hospital patient was afebrile and no fever have been recorded subsequently patient did have white count of 13,000 with a left shift patient was noted to be in acute renal failure with with elevated BUN and creatinine creatinine of 8.77 down to 4.52 patient did have a positive UA and has been treated with the Zosyn which was subsequently discontinued infectious he was consulted for further management of antibiotics patient apparently has been complaining of some weakness and per the niece at the bedside patient has not been well since his last admission to the hospital where the patient was treated for a UTI that was back in August 2022 at that time the patient urine culture was positive for Klebsiella was not ESBL and the patient was treated with Ceftin however subsequent to that patient did have a urine culture on 09/26/2023 that was positive for ESBL Klebsiella however the patient ultimately if he has received antibiotic for it Past Medical History Past Medical History: GERD/Reflux, Hypertension, Osteoarthritis (OA), Pneumonia Additional Past Medical History / Comment(s): uti's, neurogenic bladder,.hx Spina Bifida, lower lt lumbar decub ulcer,hiatal hernia, past urethral stricture, has suprapubic catheter, sore to left hip, "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 -sores on right foot, wound left side back and left hip. Past Anesthesia/Blood Transfusion Reactions: No Reported Reaction Additional Past Anesthesia/Blood Transfusion Reaction / Comm: . Past Psychological History: No Psychological Hx Reported Past Drug Use History: None Reported - Past Family History Mother Family Medical History: Cancer Additional Family Medical History / Comment(s): breast cancer, leukemia Sister(s) Family Medical History: Cancer Additional Family Medical History / Comment(s): breast cancer Father Family Medical History: Cancer Medications and Allergies Home Medications Medication Instructions Recorded Confirmed Type Metoprolol Succinate (ER) [Toprol 25 mg PO BID 11/23/20 10/15/23 History XL] Triamterene/Hydrochlorothiazid 1 tab PO DAILY 11/23/20 10/15/23 History [Triamterene-Hctz 37.5-25 mg Tb] Ciprofloxacin HCl [Cipro] 500 mg PO BID 10/15/23 10/15/23 History Allergies Allergy/AdvReac Type Severity Reaction Status Date / Time No Known Allergies Allergy Verified 10/15/23 16:58 Physical Exam Vitals: Vital Signs Temp Pulse Pulse Resp BP BP Pulse Ox 10/17/23 12:00 98.3 F 77 17 155/89 99 10/17/23 08:11 98.1 F 88 17 164/78 96 10/17/23 04:00 97.7 F 77 16 123/73 97 10/16/23 23:49 86 17 123/68 96 10/16/23 22:39 98 F 72 17 108/71 98 10/16/23 20:00 101 H 22 154/75 95 10/16/23 16:11 80 18 129/83 100 Intake and Output 10/17/23 10/17/23 10/17/23 06:59 14:59 22:59 Intake Total 236 Output Total 600 1200 Balance -600 -964 Intake: Oral 236 Output: Urine 600 1200 Suprapubic 1200 Other: Voiding Method Indwelling Catheter Indwelling Catheter Results CBC & Chem 7: 10/18/23 08:51 10/18/23 08:51 Labs: Abnormal Lab Results - Last 24 Hours (Table) 10/17/23 10/17/23 Range/Units 09:57 10:00 Chloride 111 H (98-107) mmol/L BUN 69 H (9-20) mg/dL Creatinine 4.52 H (0.66-1.25) mg/dL Glucose 113 H (74-99) mg/dL Urine Protein Trace H (Negative) Urine Blood Moderate H (Negative) Ur Leukocyte Esterase Large H (Negative) Urine RBC 129 H (0-5) /hpf Urine WBC >182 H (0-5) /hpf Urine WBC Clumps Many H (None) /hpf Urine Bacteria Moderate H (None) /hpf Urine Mucus Rare H (None) /hpf Microbiology - Last 24 Hours (Table) 10/15/23 14:30 Blood Culture - Preliminary Blood 10/15/23 14:55 Blood Culture - Preliminary Blood Assessment and Plan Plan: 1patient was in the hospital with weakness and has been diagnosed with acute renal failure in this patient who did have a chronic indwelling Haas catheter for urinary retention and this patient with a history of spina bifida: The patient last urine culture on 09/26/2023 positive for ESBL Klebsiella, patient did have elevated white count a component of catheter associated infection not entirely excluded 2-we will add Invanz 500 mg daily while waiting for the culture to finalize Multiple question concern answered We will follow on clinical condition and cultures to further adjust medication if needed Thank you for this consultation we will follow the patient along with you Dictation was produced using [employer] dictation software. please excuse any grammatical, word or spelling errors. Time with Patient: Greater than 30
[2023-10-18] MEDS: FAMOTIDINE 20 MG TAB PO SCH (08:19)
[2023-10-18 10:25] LABS: HCT 37.9 % (39.0-53.0); HGB 11.7 gm/dL (13.0-17.5); Hypochromasia Moderate; MCH 27.9 pg (25.0-35.0); MCHC 30.8 g/dL (31.0-37.0); MCV 90.7 fL (80.0-100.0); Platelet Count 242 k/uL (150-450); RBC 4.18 m/uL (4.30-5.90); RDW 14.9 % (11.5-15.5); WBC 11.3 k/uL (3.8-10.6)
--- NOTE | 2023-10-18 10:29 | P.PN ---
Subjective Patient is seen in follow-up for acute kidney injury. Morning labs pending. Nonoliguric. On IV fluids. Oral intake fair. No vomiting or diarrhea. Vital signs are stable. General: No acute distress. HEENT: Head exam is unremarkable. LUNGS: No audible rhonchi or wheezes. HEART: Rate and Rhythm are regular. ABDOMEN: Nontender. EXTREMITITES: No edema. Objective - Vital Signs Vital signs: Vital Signs Temp 98.2 F 10/17/23 20:20 Pulse 76 10/18/23 08:00 Resp 16 10/18/23 08:00 BP 161/74 10/18/23 08:00 Pulse Ox 99 10/18/23 08:00 FiO2 Intake & Output 10/17/23 10/18/23 10/18/23 18:59 06:59 18:59 Intake Total 476 Output Total 1200 1700 Balance -724 -1700 Intake: Oral 476 Output: Urine 1200 1700 Suprapubic 1200 Other: Voiding Method Indwelling Catheter Indwelling Catheter # Bowel Movements 1 - Labs CBC & Chem 7: 10/18/23 08:51 10/17/23 09:57 Labs: Abnormal Lab Results - Last 24 Hours (Table) 10/17/23 10/17/23 10/18/23 Range/Units 09:57 10:00 08:51 WBC 11.3 H (3.8-10.6) k/uL RBC 4.18 L (4.30-5.90) m/uL Hgb 11.7 L (13.0-17.5) gm/dL Hct 37.9 L (39.0-53.0) % MCHC 30.8 L (31.0-37.0) g/dL Chloride 111 H (98-107) mmol/L BUN 69 H (9-20) mg/dL Creatinine 4.52 H (0.66-1.25) mg/dL Glucose 113 H (74-99) mg/dL Urine Protein Trace H (Negative) Urine Blood Moderate H (Negative) Ur Leukocyte Esterase Large H (Negative) Urine RBC 129 H (0-5) /hpf Urine WBC >182 H (0-5) /hpf Urine WBC Clumps Many H (None) /hpf Urine Bacteria Moderate H (None) /hpf Urine Mucus Rare H (None) /hpf Microbiology - Last 24 Hours (Table) 10/15/23 14:55 Blood Culture - Preliminary Blood 10/15/23 14:30 Blood Culture - Preliminary Blood Assessment and Plan Plan: Assessment: 1. Acute kidney injury secondary to ATN secondary to hypovolemia and obstructive uropathy. Creatinine 8.7 on admission - 4.5 yesterday. Creatinine noted be 1.27 in August 2023 and as low as 0.9 in July 2022. 2. Bilateral hydronephrosis noted on CAT scan. Urology following. 3. Hyperkalemia secondary to acute kidney injury, acidosis and use of triamterene. Improved with medical management. 4. Metabolic acidosis secondary to acute kidney injury. Improved with bicarb drip. Now on oral bicarb. 5. Spina bifida. 6. Chronic suprapubic catheter. Exchanged in the ER this admission. Plan: Maintain gentle IV hydration. Continue to hold triamterene and hydrochlorothiazide. No need for renal replacement therapy at this time. Follow-up morning labs. Encouraged oral intake.
[2023-10-18 10:36] LABS: African American GFR (CKD) 21 (>60 ml/min/1.73 sqM); Anion Gap 9 mmol/L; Blood Urea Nitrogen 49 mg/dL (9-20); Calcium 8.7 mg/dL (8.4-10.2); Carbon Dioxide 23 mmol/L (22-30); Chloride 112 mmol/L (98-107); Glucose 115 mg/dL (74-99); Magnesium 1.5 mg/dL (1.6-2.3); Non-African American GFR(CKD) 18 (>60 ml/min/1.73 sqM); Potassium 3.7 mmol/L (3.5-5.1); Sodium 144 mmol/L (137-145)
[2023-10-18] MEDS: MAGNESIUM SULFATE-D5W PMX 1 GM in DEXTROSE/WATER 1 100ML.BAG IVPB SCH (12:53)
--- NOTE | 2023-10-18 20:37 | P.PN ---
Subjective Progress Note Date: 10/18/23 63-year-old male came in because of nonfunctioning Haas catheter patient is found to be in acute renal failure with creatinine going up to 8.77 came down to 6 patient baseline is around 0.9. Patient is a suprapubic catheter. Patient has a history of spina bifida patient was recently treated for urinary tract infection secondary to the catheter. Patient is hemodynamically stable patient does not appear to be septic patient has mild leukocytosis. Patient was started on antibiotics although no urine culture is available we will discontinue the antibiotics at this time catheter was replaced. 10/17/2023 Patient is evaluated today on the stepdown unit. His creatinine continues to improve and down to 4.52. Suprapubic catheter has been replaced. Urinalysis sent and was abnormal. He is being monitored off antibiotics at this time. We will consult ID for further recommendations. Patient feels like is puffy today he does have some mild pedal edema. His fluids have been decreased to 50 mls/hr. 10/18/2023 Patient is evaluated in follow up. ID has started the patient on IV ertapenem and pending final urine cultures to determine the need for antibiotic therapy on discharge. The suprapubic catheter is draining with sediment noted in the drainage bag. Patient reports mild abdominal discomfort around the insertion site. White blood cell count down to 11.3, sodium 114, potassium 3.7, BUN 49, creatinine 3.45. Magnesium 1.5. Hemodynamically he is stable. Review of Systems Constitutional: Denied any fatigue denied any fever. Cardio vascular: denied any chest pain, palpitations Gastrointestinal: denied any nausea, vomiting, diarrhea Pulmonary: Denied any shortness of breath cough Neurologic denied any new focal deficits All inpatient medications were reviewed and appropriate changes in these medications as dictated in the interval history and assessment and plan. PHYSICAL EXAMINATION: GENERAL: The patient is alert and oriented x3, not in any acute distress. Well developed, well nourished. HEENT: Pupils are round and equally reacting to light. EOMI. No scleral icterus. No conjunctival pallor. Normocephalic, atraumatic. No pharyngeal erythema. No thyromegaly. CARDIOVASCULAR: S1 and S2 present. No murmurs, rubs, or gallops. PULMONARY: Chest is clear to auscultation, no wheezing or crackles. ABDOMEN: Soft, nontender, nondistended, normoactive bowel sounds. No palpable organomegaly. MUSCULOSKELETAL: No joint swelling or deformity. EXTREMITIES: No cyanosis, clubbing, mild nonpitting pedal edema. NEUROLOGICAL: Gross neurological examination did not reveal any focal deficits. SKIN: No rashes. Wounds as noted in the assessment, stage 2 pressure injury right ankle, lower back and left groin. Assessment and plan -Acute renal failure probably secondary to obstructive uropathy there may be a competent of acute renal tubular necrosis as well patient will be continued on IV fluids, suprapubic catheter has been replaced -Abnormal urinalysis and possible UTI from the obstruction fo the suprapubic catheter. ID was consulted for recommendations regarding antibiotic therapy and patient has been started on IV ertapenem. Patient has leukocytosis. -Bilateral hydronephrosis secondary to obstruction of the suprapubic catheter -Hyperkalemia secondary to renal failure which is improving -Metabolic acidosis secondary to acute renal failure patient, improving and has been transitioned to oral sodium bicarbonate tablets. -Spina bifida: Supportive care patient is mostly wheelchair-bound -Stage 2 pressure ulcer right ankle POA follows with wound care -Stage 2 pressure ulcer, lower back, POA -Stage 2 pressure ulcer, left groin, POA DVT prophylaxis:subcu heparin GI prophylaxis: Pepcid Full Code Repeat labs in the AM. ID and nephrology following closely. Wound care has evaluated the patient and patient is known to the wound care center. For the pressure ulcers to the right ankle, left groin and lower back wound care is recommending to apply absorptive silver saline moist gauze and bordered foam and change MWF. Continue on IV ertapenem pending final urine cultures. The impression and plan of care has been dictated by Robyn Rueda, Nurse Practitioner as directed. Dr. La MD I have performed a history and physical examination and medical decision making of this patient, discussed the same with the dictator, and agree with the dictators assessment and plan as written, documented as a scribe. Based on total visit time, I have performed more than 50% of this visit. Objective - Vital Signs Vital signs: Vital Signs Temp 98.1 F 10/18/23 19:49 Pulse 73 10/18/23 19:49 Resp 18 10/18/23 19:49 BP 144/56 10/18/23 19:49 Pulse Ox 98 10/18/23 19:49 FiO2 Intake & Output 10/18/23 10/18/23 10/19/23 06:59 18:59 06:59 Intake Total 240 Output Total 1700 800 Balance -1700 -560 Intake: Oral 240 Output: Urine 1700 800 Other: Voiding Method Indwelling Catheter Indwelling Catheter # Bowel Movements 1 0 - Labs CBC & Chem 7: 10/18/23 08:51 10/18/23 08:51 Labs: Abnormal Lab Results - Last 24 Hours (Table) 10/18/23 10/18/23 Range/Units 08:51 08:51 WBC 11.3 H (3.8-10.6) k/uL RBC 4.18 L (4.30-5.90) m/uL Hgb 11.7 L (13.0-17.5) gm/dL Hct 37.9 L (39.0-53.0) % MCHC 30.8 L (31.0-37.0) g/dL Chloride 112 H (98-107) mmol/L BUN 49 H (9-20) mg/dL Creatinine 3.45 H (0.66-1.25) mg/dL Glucose 115 H (74-99) mg/dL Magnesium 1.5 L (1.6-2.3) mg/dL Microbiology - Last 24 Hours (Table) 10/17/23 10:00 Urine Culture - Final Urine,Voided 10/15/23 14:55 Blood Culture - Preliminary Blood 10/15/23 14:30 Blood Culture - Preliminary Blood Assessment and Plan Time with Patient: Less than 30
--- NOTE | 2023-10-18 21:22 | P.PN ---
Subjective Progress Note Date: 10/18/23 Principal diagnosis: Reason for follow-up is catheter associated UTI Patient is a 63-year-old male with a past medical history significant for hypertension osteoarthritis spina bifida did have neurogenic bladder and history of recurrent UTIs sacral pressure ulcer patient was brought into the hospital for nonfunctioning Haas catheter noted to be acute renal failure did have a positive UA concerning for symptomatic UTI last urine culture on 09/26/2023 positive for ESBL Klebsiella. On today's evaluation that is 10/18/2023, the patient continues to be afebrile, the patient is on room air and breathing comfortably, the Pt denies having any chest pain or cough, the patient denies having any abdominal pain no vomiting or any diarrhea has been reported by the nursing staff. Patient white count is down to 11.3, creatinine 3.45 urine cultures pending blood culture negative Objective - Vital Signs Vital signs: Vital Signs Temp 98.1 F 10/18/23 19:49 Pulse 73 10/18/23 19:49 Resp 18 10/18/23 19:49 BP 144/56 10/18/23 19:49 Pulse Ox 98 10/18/23 19:49 FiO2 Intake & Output 10/18/23 10/18/23 10/19/23 06:59 18:59 06:59 Intake Total 240 Output Total 1700 800 900 Balance -1700 560 900 Intake: Oral 240 Output: Urine 1700 800 900 Other: Voiding Method Indwelling Catheter Indwelling Catheter # Bowel Movements 1 0 1 - Exam GENERAL DESCRIPTION: Middle-age male lying in bed in no distress RESPIRATORY SYSTEM: Unlabored breathing , decreased breath sounds at bases HEART: S1 S2 regular rate and rhythm , ABDOMEN: Soft , no tenderness EXTREMITIES: No edema feet - Labs CBC & Chem 7: 10/18/23 08:51 10/18/23 08:51 Labs: Abnormal Lab Results - Last 24 Hours (Table) 10/18/23 10/18/23 Range/Units 08:51 08:51 WBC 11.3 H (3.8-10.6) k/uL RBC 4.18 L (4.30-5.90) m/uL Hgb 11.7 L (13.0-17.5) gm/dL Hct 37.9 L (39.0-53.0) % MCHC 30.8 L (31.0-37.0) g/dL Chloride 112 H (98-107) mmol/L BUN 49 H (9-20) mg/dL Creatinine 3.45 H (0.66-1.25) mg/dL Glucose 115 H (74-99) mg/dL Magnesium 1.5 L (1.6-2.3) mg/dL Microbiology - Last 24 Hours (Table) 10/15/23 14:55 Blood Culture - Preliminary Blood 10/15/23 14:30 Blood Culture - Preliminary Blood 10/17/23 10:00 Urine Culture - Final Urine,Voided Assessment and Plan (1) UTI (urinary tract infection) Current Visit: Yes Status: Acute Code(s): N39.0 - URINARY TRACT INFECTION, SITE NOT SPECIFIED SNOMED Code(s): 68765663 Plan: 1patient was in the hospital with weakness and has been diagnosed with acute renal failure in this patient who did have a 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 please excuse any gramma tical, word or spelling errors. Time with Patient: Less than 30
[2023-10-19 07:53] LABS: Basophils # (A) 0.1 k/uL (0-0.2); Basophils % (A) 1 %; Eosinophils # (A) 0.5 k/uL (0-0.7); Eosinophils % (A) 5 %; HCT 37.5 % (39.0-53.0); HGB 11.4 gm/dL (13.0-17.5); Hypochromasia Moderate; Lymphocytes # (A) 1.3 k/uL (1.0-4.8); Lymphocytes % (A) 12 %; MCH 27.6 pg (25.0-35.0); MCHC 30.3 g/dL (31.0-37.0); MCV 90.8 fL (80.0-100.0); Monocytes # (A) 0.6 k/uL (0-1.0); Monocytes % (A) 6 %; Neutrophils # (A) 7.9 k/uL (1.3-7.7); Neutrophils % (A) 74 %; Platelet Count 215 k/uL (150-450); RBC 4.12 m/uL (4.30-5.90); RDW 14.8 % (11.5-15.5); WBC 10.7 k/uL (3.8-10.6)
[2023-10-19 08:29] LABS: African American GFR (CKD) 25 (>60 ml/min/1.73 sqM); Anion Gap 11 mmol/L; Blood Urea Nitrogen 37 mg/dL (9-20); Calcium 8.9 mg/dL (8.4-10.2); Carbon Dioxide 22 mmol/L (22-30); Chloride 110 mmol/L (98-107); Glucose 109 mg/dL (74-99); Non-African American GFR(CKD) 21 (>60 ml/min/1.73 sqM); Potassium 3.9 mmol/L (3.5-5.1); Sodium 143 mmol/L (137-145)
[2023-10-19] MEDS: MAGNESIUM OXIDE 400 MG TAB PO SCH (09:32)
[2023-10-19] MEDS: METOPROLOL SUCCINATE (ER) 25 MG TAB.ER.24H PO SCH (12:22)
--- NOTE | 2023-10-19 13:58 | P.PN ---
Subjective Progress Note Date: 10/19/23 Patient is seen in follow-up for acute kidney injury. Non-oliguric. On IV fluids. Oral intake fair. No vomiting or diarrhea. Vital signs are stable. General: No acute distress. HEENT: Head exam is unremarkable. LUNGS: No audible rhonchi or wheezes. HEART: Rate and Rhythm are regular. ABDOMEN: Nontender. EXTREMITITES: No edema. Objective - Vital Signs Vital signs: Vital Signs Temp 98.3 F 10/19/23 04:00 Pulse 70 10/19/23 04:00 Resp 15 10/19/23 04:00 BP 162/67 10/19/23 04:00 Pulse Ox 99 10/19/23 04:00 FiO2 Intake & Output 10/18/23 10/19/23 10/19/23 18:59 06:59 18:59 Intake Total 240 Output Total 800 1900 Balance -560 -1900 Intake: Oral 240 Output: Urine 800 1900 Other: Voiding Method Indwelling Catheter Indwelling Catheter # Bowel Movements 0 1 - Labs CBC & Chem 7: 10/19/23 06:43 10/19/23 06:43 Labs: Abnormal Lab Results - Last 24 Hours (Table) 10/19/23 10/19/23 Range/Units 06:43 06:43 WBC 10.7 H (3.8-10.6) k/uL RBC 4.12 L (4.30-5.90) m/uL Hgb 11.4 L (13.0-17.5) gm/dL Hct 37.5 L (39.0-53.0) % MCHC 30.3 L (31.0-37.0) g/dL Neutrophils # 7.9 H (1.3-7.7) k/uL Chloride 110 H (98-107) mmol/L BUN 37 H (9-20) mg/dL Creatinine 2.97 H (0.66-1.25) mg/dL Glucose 109 H (74-99) mg/dL Microbiology - Last 24 Hours (Table) 10/15/23 14:55 Blood Culture - Preliminary Blood 10/15/23 14:30 Blood Culture - Preliminary Blood 10/17/23 10:00 Urine Culture - Final Urine,Voided Assessment and Plan Plan: Assessment: 1. Acute kidney injury secondary to ATN secondary to hypovolemia and obstructive uropathy. Creatinine 8.7 on admission - 3.0 today. Creatinine noted be 1.27 in August 2023 and as low as 0.9 in July 2022. 2. Bilateral hydronephrosis noted on CAT scan. Urology following. 3. Hyperkalemia secondary to acute kidney injury, acidosis and use of triamterene. Improved with medical management. 4. Metabolic acidosis secondary to acute kidney injury. Improved with bicarb drip. Now on oral bicarb. 5. Spina bifida. 6. Chronic suprapubic catheter. Exchanged in the ER this admission. Plan: Discontinue IV hydration. Continue to hold triamterene and hydrochlorothiazide. Suprapubic catheter management per urology. Encouraged oral intake.
[2023-10-19] MEDS: hydrALAZINE HCL 25 MG TAB PO STA (17:05)
--- NOTE | 2023-10-19 21:43 | P.PN ---
Subjective Progress Note Date: 10/19/23 63-year-old male came in because of nonfunctioning Haas catheter patient is found to be in acute renal failure with creatinine going up to 8.77 came down to 6 patient baseline is around 0.9. Patient is a suprapubic catheter. Patient has a history of spina bifida patient was recently treated for urinary tract infection secondary to the catheter. Patient is hemodynamically stable patient does not appear to be septic patient has mild leukocytosis. Patient was started on antibiotics although no urine culture is available we will discontinue the antibiotics at this time catheter was replaced. 10/17/2023 Patient is evaluated today on the stepdown unit. His creatinine continues to improve and down to 4.52. Suprapubic catheter has been replaced. Urinalysis sent and was abnormal. He is being monitored off antibiotics at this time. We will consult ID for further recommendations. Patient feels like is puffy today he does have some mild pedal edema. His fluids have been decreased to 50 mls/hr. 10/18/2023 Patient is evaluated in follow up. ID has started the patient on IV ertapenem and pending final urine cultures to determine the need for antibiotic therapy on discharge. The suprapubic catheter is draining with sediment noted in the drainage bag. Patient reports mild abdominal discomfort around the insertion site. White blood cell count down to 11.3, sodium 114, potassium 3.7, BUN 49, creatinine 3.45. Magnesium 1.5. Hemodynamically he is stable. 10/19/2023 Patient is seen in follow-up today maintained on IV antibiotic in the form of Invanz with infectious disease following. Awaiting finalized cultures to determine discharge antibiotics. Likely will go home with no antibiotics as cultures thus far are negative. Patient is reporting multiple episodes of loose stool which he feels is most likely secondary to the antibiotic. Patient did have suprapubic catheter replaced and kidney functions are currently stable. Started on hydralazine for blood pressure as blood pressure is elevated and patient should not continue on triamterene/hydrochlorothiazide. Patient to return home with home care on discharge. Patient is concerned about discharging home today as he will be unable to receive care until Saturday. Will follow-up with consultations regarding discharge planning. Likely discharge in 24 hours. Review of Systems Constitutional: Denied any fatigue denied any fever. Cardio vascular: denied any chest pain, palpitations Gastrointestinal: denied any nausea, vomiting, reports multiple episodes of loose stools Pulmonary: Denied any shortness of breath cough Neurologic denied any new focal deficits All inpatient medications were reviewed and appropriate changes in these medications as dictated in the interval history and assessment and plan. PHYSICAL EXAMINATION: GENERAL: The patient is alert and oriented x3, not in any acute distress. Well developed, well nourished. Obese. HEENT: Pupils are round and equally reacting to light. EOMI. No scleral icterus. No conjunctival pallor. Normocephalic, atraumatic. No pharyngeal erythema. No thyromegaly. CARDIOVASCULAR: S1 and S2 present. No murmurs, rubs, or gallops. PULMONARY: Chest is clear to auscultation, no wheezing or crackles. ABDOMEN: Soft, nontender, nondistended, normoactive bowel sounds. No palpable organomegaly. MUSCULOSKELETAL: No joint swelling or deformity. EXTREMITIES: No cyanosis, clubbing, mild nonpitting pedal edema. NEUROLOGICAL: Gross neurological examination did not reveal any focal deficits. SKIN: No rashes. Wounds as noted in the assessment, stage 2 pressure injury right ankle, lower back and left groin. Assessment and plan -Acute renal failure probably secondary to obstructive uropathy as well as component of acute renal tubular necrosis continue gentle IV fluids, suprapubic catheter has been replaced -Abnormal urinalysis and possible UTI from the obstruction of the suprapubic catheter. Repeat urine cultures are negative thus far. Patient continued on IV Invanz and will likely not require antibiotics on discharge -Bilateral hydronephrosis secondary to obstruction of the suprapubic catheter -Hyperkalemia secondary to renal failure which is improving -Metabolic acidosis secondary to acute renal failure patient, improving and has been transitioned to oral sodium bicarbonate tablets. -Spina bifida: Supportive care patient is mostly wheelchair-bound -Stage 2 pressure ulcer right ankle POA follows with wound care -Stage 2 pressure ulcer, lower back, POA -Stage 2 pressure ulcer, left groin, POA DVT prophylaxis:subcu heparin GI prophylaxis: Pepcid Full Code Repeat labs in the AM. Kidney functions are trending down and will follow-up with nephrology outpatient. Discussed with infectious disease and patient will continue on IV Invanz and await finalized culture. Recommend monitoring overnight as blood pressure medication was resumed in the form of hydralazine. Continue to hold hydrochlorothiazide/hide triamterene. Wound care has evaluated the patient and patient is known to the wound care center. For the pressure ulcers to the right ankle, left groin and lower back wound care is recommending to apply absorptive silver saline moist gauze and bordered foam and change MWF. Will check a C. difficile as patient reports multiple episodes of loose stools. Patient extremely anxious about going home today as he is unsure if he can have help until Saturday. Will monitor overnight for improvement in blood pressure and diarrhea and likely discharge in 24 hours. [facility] is being resumed. The impression and plan of care has been dictated by Varsha Mendoza, Nurse Practitioner as directed. Dr. La MD I have performed a history and physical examination and medical decision making of this patient, discussed the same with the dictator, and agree with the dictators assessment and plan as written, documented as a scribe. Based on total visit time, I have performed more than 50% of this visit. Objective - Vital Signs Vital signs: Vital Signs Temp 98.3 F 10/19/23 04:00 Pulse 70 10/19/23 04:00 Resp 15 10/19/23 04:00 BP 162/67 10/19/23 04:00 Pulse Ox 99 10/19/23 04:00 FiO2 Intake & Output 10/18/23 10/19/23 10/19/23 18:59 06:59 18:59 Intake Total 240 Output Total 800 1900 Balance -560 -1900 Intake: Oral 240 Output: Urine 800 1900 Other: Voiding Method Indwelling Catheter Indwelling Catheter # Bowel Movements 0 1 - Labs CBC & Chem 7: 10/19/23 06:43 10/19/23 06:43 Labs: Abnormal Lab Results - Last 24 Hours (Table) 10/18/23 10/18/23 10/19/23 Range/Units 08:51 08:51 06:43 WBC 11.3 H 10.7 H (3.8-10.6) k/uL RBC 4.18 L 4.12 L (4.30-5.90) m/uL Hgb 11.7 L 11.4 L (13.0-17.5) gm/dL Hct 37.9 L 37.5 L (39.0-53.0) % MCHC 30.8 L 30.3 L (31.0-37.0) g/dL Neutrophils # 7.9 H (1.3-7.7) k/uL Chloride 112 H (98-107) mmol/L BUN 49 H (9-20) mg/dL Creatinine 3.45 H (0.66-1.25) mg/dL Glucose 115 H (74-99) mg/dL Magnesium 1.5 L (1.6-2.3) mg/dL 10/19/23 Range/Units 06:43 WBC (3.8-10.6) k/uL RBC (4.30-5.90) m/uL Hgb (13.0-17.5) gm/dL Hct (39.0-53.0) % MCHC (31.0-37.0) g/dL Neutrophils # (1.3-7.7) k/uL Chloride 110 H (98-107) mmol/L BUN 37 H (9-20) mg/dL Creatinine 2.97 H (0.66-1.25) mg/dL Glucose 109 H (74-99) mg/dL Magnesium (1.6-2.3) mg/dL Microbiology - Last 24 Hours (Table) 10/15/23 14:55 Blood Culture - Preliminary Blood 10/15/23 14:30 Blood Culture - Preliminary Blood 10/17/23 10:00 Urine Culture - Final Urine,Voided
--- NOTE | 2023-10-19 21:49 | P.PN ---
Subjective Progress Note Date: 10/19/23 Principal diagnosis: Reason for follow-up is catheter associated UTI Patient is a 63-year-old male with a past medical history significant for hypertension osteoarthritis spina bifida did have neurogenic bladder and history of recurrent UTIs sacral pressure ulcer patient was brought into the hospital for nonfunctioning Haas catheter noted to be acute renal failure did have a positive UA concerning for symptomatic UTI last urine culture on 09/26/2023 positive for ESBL Klebsiella. On today's evaluation that is 10/19/2023, Patient is afebrile patient is currently on room air and denies having any shortness of breath, the patient denies any chest pain or cough, the patient denies any nausea vomiting did not have any abdominal pain and no diarrhea. No new symptoms Patient white count is down to 10.7, creatinine is 2.97. Blood and urine cultures so far negative Objective - Vital Signs Vital signs: Vital Signs Temp 97.6 F 10/19/23 08:00 Pulse 76 10/19/23 08:00 Resp 16 10/19/23 08:00 BP 157/71 10/19/23 08:00 Pulse Ox 100 10/19/23 08:00 FiO2 Intake & Output 10/18/23 10/19/23 10/19/23 18:59 06:59 18:59 Intake Total 240 Output Total 800 1900 Balance -560 -1900 Intake: Oral 240 Output: Urine 800 1900 Other: Voiding Method Indwelling Catheter Indwelling Catheter Indwelling Catheter # Bowel Movements 0 1 - Exam GENERAL DESCRIPTION: Middle-age male lying in bed in no distress RESPIRATORY SYSTEM: Unlabored breathing , decreased breath sounds at bases HEART: S1 S2 regular rate and rhythm , ABDOMEN: Soft , no tenderness EXTREMITIES: No edema feet - Labs CBC & Chem 7: 10/19/23 06:43 10/19/23 06:43 Labs: Abnormal Lab Results - Last 24 Hours (Table) 10/19/23 10/19/23 Range/Units 06:43 06:43 WBC 10.7 H (3.8-10.6) k/uL RBC 4.12 L (4.30-5.90) m/uL Hgb 11.4 L (13.0-17.5) gm/dL Hct 37.5 L (39.0-53.0) % MCHC 30.3 L (31.0-37.0) g/dL Neutrophils # 7.9 H (1.3-7.7) k/uL Chloride 110 H (98-107) mmol/L BUN 37 H (9-20) mg/dL Creatinine 2.97 H (0.66-1.25) mg/dL Glucose 109 H (74-99) mg/dL Microbiology - Last 24 Hours (Table) 10/15/23 14:55 Blood Culture - Preliminary Blood 10/15/23 14:30 Blood Culture - Preliminary Blood 10/17/23 10:00 Urine Culture - Final Urine,Voided Assessment and Plan (1) UTI (urinary tract infection) Current Visit: Yes Status: Acute Code(s): N39.0 - URINARY TRACT INFECTION, SITE NOT SPECIFIED SNOMED Code(s): 09070654 Plan: 1patient was in the hospital with weakness and has been diagnosed with acute renal failure in this patient who did have a 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 please excuse any grammatical, word or spelling errors. Time with Patient: Less than 30
[2023-10-19] MEDS: hydrALAZINE HCL 25 MG TAB PO SCH (22:57)
[2023-10-20 06:21] VITALS: RESP 14
[2023-10-20 07:58] LABS: African American GFR (CKD) 32 (>60 ml/min/1.73 sqM); Anion Gap 10 mmol/L; Blood Urea Nitrogen 34 mg/dL (9-20); Carbon Dioxide 18 mmol/L (22-30); Chloride 112 mmol/L (98-107); Glucose 94 mg/dL (74-99); Non-African American GFR(CKD) 28 (>60 ml/min/1.73 sqM); Potassium 4.7 mmol/L (3.5-5.1); Sodium 140 mmol/L (137-145)
--- NOTE | 2023-10-20 09:33 | P.PN ---
Subjective Progress Note Date: 10/20/23 the patient has mild meningocele. He has a neurogenic bladder. Has chronic suprapubic tube wasn't draining. He is admitted for urine infection and renal insufficiency. The urine is draining nicely. His creatinine is coming down. He has chronic left hydronephrosis. Objective - Vital Signs Vital signs: Vital Signs Temp 98.5 F 10/20/23 04:00 Pulse 68 10/20/23 04:00 Resp 14 10/20/23 04:00 BP 138/80 10/20/23 04:00 Pulse Ox 98 10/20/23 04:00 FiO2 Intake & Output 10/19/23 10/20/23 10/20/23 18:59 06:59 18:59 Intake Total 698 118 Output Total 575 1600 Balance 123 -1600 118 Intake: Oral 698 118 Output: Urine 575 1600 Other: Voiding Method Indwelling Catheter Indwelling Catheter # Bowel Movements 1 1 - Labs CBC & Chem 7: 10/19/23 06:43 10/20/23 07:12 Labs: Abnormal Lab Results - Last 24 Hours (Table) 10/20/23 Range/Units 07:12 Chloride 112 H (98-107) mmol/L Carbon Dioxide 18 L (22-30) mmol/L BUN 34 H (9-20) mg/dL Creatinine 2.40 H (0.66-1.25) mg/dL Assessment and Plan Assessment: impression: From urologic standpoint he is doing fine. From my standpoint he can go home at any time. He should follow with his urologist in [facility].
--- NOTE | 2023-10-20 10:55 | P.PN ---
Subjective Progress Note Date: 10/20/23 Patient is seen in follow-up for acute kidney injury. Non-oliguric. On IV fluids. Oral intake fair. No vomiting or diarrhea. Feeling better overall. Vital signs are stable. General: No acute distress. HEENT: Head exam is unremarkable. LUNGS: No audible rhonchi or wheezes. HEART: Rate and Rhythm are regular. ABDOMEN: Nontender. EXTREMITITES: No edema. Objective - Vital Signs Vital signs: Vital Signs Temp 98.5 F 10/20/23 04:00 Pulse 68 10/20/23 04:00 Resp 14 10/20/23 04:00 BP 138/80 10/20/23 04:00 Pulse Ox 98 10/20/23 04:00 FiO2 Intake & Output 10/19/23 10/20/23 10/20/23 18:59 06:59 18:59 Intake Total 698 118 Output Total 575 1600 Balance 123 -1600 118 Intake: Oral 698 118 Output: Urine 575 1600 Other: Voiding Method Indwelling Catheter Indwelling Catheter # Bowel Movements 1 1 - Labs CBC & Chem 7: 10/19/23 06:43 10/20/23 07:12 Labs: Abnormal Lab Results - Last 24 Hours (Table) 10/20/23 Range/Units 07:12 Chloride 112 H (98-107) mmol/L Carbon Dioxide 18 L (22-30) mmol/L BUN 34 H (9-20) mg/dL Creatinine 2.40 H (0.66-1.25) mg/dL Assessment and Plan Plan: Assessment: 1. Acute kidney injury secondary to ATN secondary to hypovolemia and obstructive uropathy. Creatinine 8.7 on admission - 2.4 today. Creatinine noted be 1.27 in August 2023 and as low as 0.9 in July 2022. 2. Bilateral hydronephrosis noted on CAT scan. Urology following. 3. Hyperkalemia secondary to acute kidney injury, acidosis and use of triamterene. Improved with medical management. 4. Metabolic acidosis secondary to acute kidney injury. Improved with bicarb drip. Now on oral bicarb. 5. Spina bifida. 6. Chronic suprapubic catheter. Exchanged in the ER this admission. Plan: Discontinue IV hydration. Continue to hold triamterene and hydrochlorothiazide. Suprapubic catheter management per urology. Encouraged oral intake. Clear for discharge with outpatient follow-up 2-3 weeks.
[2023-10-20 12:31] VITALS: TEMP 97.9
--- NOTE | 2023-10-20 13:52 | P.DS ---
Providers Date of admission: 10/15/23 19:46 Expected date of discharge: 10/20/23 Attending physician: Krishna Harding Consults: 10/15/23 19:37 Consult Physician Routine Consulting Provider: Chriss Reyes Consult Reason/Comments: COREY Do you want consulting provider notified?: Yes 10/16/23 11:38 Consult Physician Routine Consulting Provider: aDr Sorensen Consult Reason/Comments: b/l hydronephrosis Do you want consulting provider notified?: Yes 10/17/23 12:34 Consult Physician Routine Consulting Provider: Kindra Walker Consult Reason/Comments: abdnormal UA, COREY Do you want consulting provider notified?: Yes Primary care physician: Mayank Laurent MD Hospital Course: 63-year-old male came in because of nonfunctioning Haas catheter patient is found to be in acute renal failure with creatinine going up to 8.77 came down to 6 patient baseline is around 0.9. Patient is a suprapubic catheter. Patient has a history of spina bifida patient was recently treated for urinary tract infection secondary to the catheter. Patient is hemodynamically stable patient does not appear to be septic patient has mild leukocytosis. Patient was started on antibiotics although no urine culture is available we will discontinue the antibiotics at this time catheter was replaced. 10/17/2023 Patient is evaluated today on the stepdown unit. His creatinine continues to improve and down to 4.52. Suprapubic catheter has been replaced. Urinalysis sent and was abnormal. He is being monitored off antibiotics at this time. We will consult ID for further recommendations. Patient feels like is puffy today he does have some mild pedal edema. His fluids have been decreased to 50 mls/hr. 10/18/2023 Patient is evaluated in follow up. ID has started the patient on IV ertapenem and pending final urine cultures to determine the need for antibiotic therapy on discharge. The suprapubic catheter is draining with sediment noted in the drainage bag. Patient reports mild abdominal discomfort around the insertion site. White blood cell count down to 11.3, sodium 114, potassium 3.7, BUN 49, creatinine 3.45. Magnesium 1.5. Hemodynamically he is stable. 10/19/2023 Patient is seen in follow-up today maintained on IV antibiotic in the form of Invanz with infectious disease following. Awaiting finalized cultures to determine discharge antibiotics. Likely will go home with no antibiotics as cultures thus far are negative. Patient is reporting multiple episodes of loose stool which he feels is most likely secondary to the antibiotic. Patient did have suprapubic catheter replaced and kidney functions are currently stable. Started on hydralazine for blood pressure as blood pressure is elevated and patient should not continue on triamterene/hydrochlorothiazide. Patient to r eturn home with home care on discharge. Patient is concerned about discharging home today as he will be unable to receive care until Saturday. Will follow-up with consultations regarding discharge planning. Likely discharge in 24 hours. 10/20/23 : Patient was seen and evaluated bedside, patient remains asymptomatic, patient to be discharged home patient does have solid stool in stool C. difficile not sent, patient has increased frequency for which Lomotil provided. Completed course of antibiotic does not need IV antibiotics upon discharge. Invanz to be discontinued PHYSICAL EXAMINATION: GENERAL: The patient is alert and oriented x3, not in any acute distress. Well developed, well nourished. Obese. HEENT: Pupils are round and equally reacting to light. EOMI. No scleral icterus. No conjunctival pallor. Normocephalic, atraumatic. No pharyngeal erythema. No thyromegaly. CARDIOVASCULAR: S1 and S2 present. No murmurs, rubs, or gallops. PULMONARY: Chest is clear to auscultation, no wheezing or crackles. ABDOMEN: Soft, nontender, nondistended, normoactive bowel sounds. No palpable organomegaly. MUSCULOSKELETAL: No joint swelling or deformity. EXTREMITIES: No cyanosis, clubbing, mild nonpitting pedal edema. NEUROLOGICAL: Gross neurological examination did not reveal any focal deficits. SKIN: No rashes. Wounds as noted in the assessment, stage 2 pressure injury right ankle, lower back and left groin. Assessment and plan -Acute renal failure probably secondary to obstructive uropathy as well as component of acute renal tubular necrosis continue gentle IV fluids, suprapubic catheter has been replaced -Urinary tract infection secondary to suprapubic catheter -Bilateral hydronephrosis secondary to obstruction of the suprapubic catheter -Hyperkalemia secondary to renal failure which is improving -Metabolic acidosis secondary to acute renal failure patient, improving and has been transitioned to oral sodium bicarbonate tablets. -Spina bifida: Supportive care patient is mostly wheelchair-bound -Stage 2 pressure ulcer right ankle POA follows with wound care -Stage 2 pressure ulcer, lower back, POA -Stage 2 pressure ulcer, left groin, POA * In regards to renal failure, creatinine 2.40, followed by nephrology, IV fluid discontinued, continue to hold triamterene hydrochlorothiazide, continue management of suprapubic catheter, cleared for discharge by nephrology * In regards to urinary tract infection, received Invanz while inpatient. * In regards to increased stool frequency, no diarrhea noted, stool C. difficile not sent. Lomotil provided * Patient to be discharged home with home care Patient Condition at Discharge: Serious Plan - Discharge Summary Discharge Rx Participant: No New Discharge Prescriptions: New hydrALAZINE HCL 25 mg PO TID 30 Days #90 tab Magnesium Oxide [Mag-Ox] 400 mg PO DAILY #30 tab Famotidine [Pepcid] 20 mg PO DAILY #30 tab Sodium Bicarbonate Tab 650 mg PO TID #90 tab Diphenox-Atrop 2.5-0.025 mg [Lomotil] 1 tab PO TID 3 Days #9 tablet Acetaminophen Tab [Tylenol] 650 mg PO Q6HR PRN tab PRN Reason: Fever and/ or Mild Pain Continue Metoprolol Succinate (ER) [Toprol XL] 25 mg PO BID Discontinued Triamterene/Hydrochlorothiazid [Triamterene-Hctz 37.5-25 mg Tb] 1 tab PO DAILY Ciprofloxacin HCl [Cipro] 500 mg PO BID Discharge Medication List Metoprolol Succinate (ER) [Toprol XL] 25 mg PO BID 11/23/20 [History] Acetaminophen Tab [Tylenol] 650 mg PO Q6HR PRN tab 10/19/23 [Rx] Famotidine [Pepcid] 20 mg PO DAILY #30 tab 10/19/23 [Rx] Magnesium Oxide [Mag-Ox] 400 mg PO DAILY #30 tab 10/19/23 [Rx] Sodium Bicarbonate Tab 650 mg PO TID #90 tab 10/19/23 [Rx] hydrALAZINE HCL 25 mg PO TID 30 Days #90 tab 10/19/23 [Rx] Diphenox-Atrop 2.5-0.025 mg [Lomotil] 1 tab PO TID 3 Days #9 tablet 10/20/23 [Rx] Follow up Appointment(s)/Referral(s): [facility], [NON-STAFF] - Mayank Laurent MD [Primary Care Provider] - 1-2 days [facility] [NON-STAFF] - 10/21/23 10:30 am Activity/Diet/Wound Care/Special Instructions: Activity limited until follow-up Follow-up with primary care provider on discharge Follow-up with home care in the outpatient setting Continue taking medications as prescribed Continue hydralazine Monitor blood pressure daily and keep a diary for primary care follow-up Continue holding hydrochlorothiazide/triamterene for now and discuss with your primary care provider Hold blood pressure medication if blood pressure systolic(top number) is 110 or less
[2023-10-20 15:16] VITALS: BP 151/72; PULSE 70
--- NOTE | 2023-10-20 15:43 | P.PN ---
Subjective Progress Note Date: 10/20/23 Principal diagnosis: Reason for follow-up is catheter associated UTI Patient is a 63-year-old male with a past medical history significant for hypertension osteoarthritis spina bifida did have neurogenic bladder and history of recurrent UTIs sacral pressure ulcer patient was brought into the hospital for nonfunctioning Haas catheter noted to be acute renal failure did have a positive UA concerning for symptomatic UTI last urine culture on 09/26/2023 positive for ESBL Klebsiella. On today's evaluation that is 10/20/2023, patient has been afebrile, patient is breathing comfortably and is currently on room air, patient denies having any significant cough no chest pain shortness of breath, patient denies nausea vomiting complaining of some soft stools but no runny diarrhea, feeling better wants to go home. Patient creatinine is down to 2.40 urine culture have been negative blood culture negative Objective - Vital Signs Vital signs: Vital Signs Temp 97.9 F 10/20/23 08:00 Pulse 66 10/20/23 08:00 Resp 14 10/20/23 08:00 BP 159/72 10/20/23 08:00 Pulse Ox 97 10/20/23 08:00 FiO2 Intake & Output 10/19/23 10/20/23 10/20/23 18:59 06:59 18:59 Intake Total 698 236 Output Total 575 1600 Balance 123 -1600 236 Intake: Oral 698 236 Output: Urine 575 1600 Other: Voiding Method Indwelling Catheter Indwelling Catheter Indwelling Catheter # Bowel Movements 1 2 - Exam GENERAL DESCRIPTION: Middle-age male lying in bed in no distress RESPIRATORY SYSTEM: Unlabored breathing , decreased breath sounds at bases HEART: S1 S2 regular rate and rhythm , ABDOMEN: Soft , no tenderness EXTREMITIES: No edema feet - Labs CBC & Chem 7: 10/19/23 06:43 10/20/23 07:12 Labs: Abnormal Lab Results - Last 24 Hours (Table) 10/20/23 Range/Units 07:12 Chloride 112 H (98-107) mmol/L Carbon Dioxide 18 L (22-30) mmol/L BUN 34 H (9-20) mg/dL Creatinine 2.40 H (0.66-1.25) mg/dL Assessment and Plan (1) UTI (urinary tract infection) Status: Acute Code(s): N39.0 - URINARY TRACT INFECTION, SITE NOT SPECIFIED SNOMED Code(s): 07012702 Plan: 1patient was in the hospital with weakness and has been diagnosed with acute renal failure in this patient who did have a chronic indwelling Haas catheter for urinary retention and this patient with a history of spina bifida: The patient last urine culture on 09/26/2023 positive for ESBL Klebsiella, patient did have elevated white count a component of catheter associated infection not entirely excluded 2-patient urine culture has been negative there was concern for possible mild cystitis where the patient received 3 days of Invanz should be more than enough and no need for antibiotic on discharge Dictation was produced using [employer] dictation software. please excuse any grammatical, word or spelling errors. Time with Patient: Less than 30
== END 2023-10-20 15:36 | disposition home health service (06) | DRG 698 ==
LOC: EC 13:34 → 3SCARD 19:46
PROVIDERS: ADMIT Hospitalist; ATTEND Hospitalist
DX: T83.510A Infection and inflammatory reaction due to cystostomy catheter, initial encounter (principal); L89.143 Pressure ulcer of left lower back, stage 3; L89.223 Pressure ulcer of left hip, stage 3; L89.623 Pressure ulcer of left heel, stage 3; N17.0 Acute kidney failure with tubular necrosis; N13.6 Pyonephrosis; E87.20 Acidosis, unspecified; E87.5 Hyperkalemia; N31.9 Neuromuscular dysfunction of bladder, unspecified; L89.512 Pressure ulcer of right ankle, stage 2; Q76.0 Spina bifida occulta; K21.9 Gastro-esophageal reflux disease without esophagitis; I10 Essential (primary) hypertension; R33.8 Other retention of urine; M19.90 Unspecified osteoarthritis, unspecified site; E86.1 Hypovolemia; K44.9 Diaphragmatic hernia without obstruction or gangrene; Z99.3 Dependence on wheelchair; Z87.01 Personal history of pneumonia (recurrent); Z87.440 Personal history of urinary (tract) infections; Z79.899 Other long term (current) drug therapy; Z86.14 Personal history of Methicillin resistant Staphylococcus aureus infection; Z91.199 Patient's noncompliance with other medical treatment and regimen due to unspecified reason; Z85.828 Personal history of other malignant neoplasm of skin; Z85.59 Personal history of malignant neoplasm of other urinary tract organ
CPT/HCPCS: 36415; 51702; 74176; 76770; 80048; 80053; 81001; 83605; 83690; 83735; 84100; 85025; 85027; 87040; 87086; 93005; 96365; 96366; 96367; 96368; 96375; 96376; 99285

== ENCOUNTER 2024-12-01 09:29 | Emergency (ER) | payer MEDICARE, OTHER ==
[2024-12-01 09:33] VITALS: RESP 16
--- NOTE | 2024-12-01 10:35 | ED ---
Male Urogenital HPI - General Chief complaint: Urogenital Stated complaint: cath issue Time Seen by Provider: 12/01/24 09:34 Source: patient, RN notes reviewed Mode of arrival: wheelchair Limitations: no limitations - History of Present Illness Initial comments: 64-year-old male presents emergency department with chief complaint of needing catheter exchange. Patient states he has a suprapubic catheter he states that he is due for an exchange he states he is to have home care they are not coming out anymore. Patient states he has no complaints he states that this is a chronic Haas and he has no other symptoms denies fevers or chills. - Related Data Home Medications Medication Instructions Recorded Confirmed Metoprolol Succinate (ER) [Toprol 25 mg PO BID 11/23/20 10/15/23 XL] Previous Rx's Medication Instructions Recorded Acetaminophen Tab [Tylenol] 650 mg PO Q6HR PRN tab 10/19/23 Famotidine [Pepcid] 20 mg PO DAILY #30 tab 10/19/23 Magnesium Oxide [Mag-Ox] 400 mg PO DAILY #30 tab 10/19/23 Sodium Bicarbonate Tab 650 mg PO TID #90 tab 10/19/23 hydrALAZINE HCL 25 mg PO TID 30 Days #90 tab 10/19/23 Diphenox-Atrop 2.5-0.025 mg 1 tab PO TID 3 Days #9 tablet 10/20/23 [Lomotil] Allergies Allergy/AdvReac Type Severity Reaction Status Date / Time No Known Allergies Allergy Verified 12/01/24 09:33 Review of Systems ROS Statement: Those systems with pertinent positive or pertinent negative responses have been documented in the HPI. ROS Other: All systems not noted in ROS Statement are negative. 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 -sores on right foot, wound left side back and left hip. Past Anesthesia/Blood Transfusion Reactions: No Reported Reaction Additional Past Anesthesia/Blood Transfusion Reaction / Comment(s): . Past Psychological History: No Psychological Hx Reported Past Drug Use History: None Reported - Past Family History Mother Family Medical History: Cancer Additional Family Medical History / Comment(s): breast cancer, leukemia Sister(s) Family Medical History: Cancer Additional Family Medical History / Comment(s): breast cancer Father Family Medical History: Cancer General Exam Limitations: no limitations General appearance: alert, in no apparent distress Head exam: Present: atraumatic, normocephalic, normal inspection Respiratory exam: Present: normal lung sounds bilaterally. Absent: respiratory distress, wheezes, rales, rhonchi, stridor Cardiovascular Exam: Present: regular rate, normal rhythm, normal heart sounds. Absent: systolic murmur, diastolic murmur, rubs, gallop, clicks GI/Abdominal exam: Present: soft, normal bowel sounds, other (Suprapubic catheter). Absent: distended, tenderness, guarding, rebound, rigid Course Vital Signs 12/01/24 12/01/24 09:31 11:05 Temperature 97.7 F 97.8 F Pulse Rate 87 80 Respiratory 16 16 Rate Blood Pressure 196/91 179/86 O2 Sat by Pulse 96 97 Oximetry Medical Decision Making - Medical Decision Making Was pt. sent in by a medical professional or institution (, PA, [employer], urgent care, hospital, or retirement...) When possible be specific @ -No Did you speak to anyone other than the patient for history (EMS, parent, family, police, friend...)? What history was obtained from this source @ -No Did you review nursing and triage notes (agree or disagree)? Why? @ -I reviewed and agree with nursing and triage notes Were old charts reviewed (outside hosp., previous admission, EMS record, old EKG, old radiological studies, urgent care reports/EKG's, retirement records)? Report findings @ -No old charts were reviewed Differential Diagnosis (chest pain, altered mental status, abdominal pain women, abdominal pain men, vaginal bleeding, weakness, fever, dyspnea, syncope, headache, dizziness, GI bleed, back pain, seizure, CVA, palpatations, mental he alth, musculoskeletal)? @ -Catheter replacement, suprapubic catheter, EKG interpreted by me (3pts min.). @ -None X-rays interpreted by me (1pt min.). @ -None done CT interpreted by me (1pt min.). @ -None done U/S interpreted by me (1pt. min.). @ -None done What testing was considered but not performed or refused? (CT, X-rays, U/S, labs)? Why? @ -None What meds were considered but not given or refused? Why? @ -None Did you discuss the management of the patient with other professionals (professionals i.e. , PA, [employer], lab, RT, psych nurse, social security benefits interviewer, fish hatchery inspector, teacher, supervisory cbp officer, family preservation caseworker)? Give summary @ -No Was smoking cessation discussed for >3mins.? @ -No Was critical care preformed (if so, how long)? @ -No Were there social determinants of health that impacted care today? How? (Homelessness, low income, unemployed, alcoholism, drug addiction, transportation, low edu. Level, literacy, decrease access to med. care, long-term, rehab)? @ -No Was there de-escalation of care discussed even if they declined (Discuss DNR or withdrawal of care, Hospice)? DNR status @ -No What co-morbidities impacted this encounter? (DM, HTN, Smoking, COPD, CAD, Cancer, CVA, ARF, Chemo, Hep., AIDS, mental health diagnosis, sleep apnea, morbid obesity)? @ -None Was patient admitted / discharged? Hospital course, mention meds given and route, prescriptions, significant lab abnormalities, going to OR and other pertinent info. @ -Discharge catheter was exchanged without difficulty. Patient does not have any current symptoms and afebrile but requested urine culture. Undiagnosed new problem with uncertain prognosis? @ -No Drug Therapy requiring intensive monitoring for toxicity (Heparin, Nitro, Insulin, Cardizem)? @ -No Were any procedures done? @ -No Diagnosis/symptom? @ -Superior pubic catheter replacement Acute, or Chronic, or Acute on Chronic? @ -Acute Uncomplicated (without systemic symptoms) or Complicated (systemic symptoms)? @ -Uncomplicated Side effects of treatment? @ -No Exacerbation, Progression, or Severe Exacerbation? @ -No Poses a threat to life or bodily function? How? (Chest pain, USA, ID, pneumonia, PE, COPD, DKA, ARF, appy, cholecystitis, CVA, Diverticulitis, Homicidal, Suicidal, threat to staff... and all critical care pts) @ -No - Lab Data Lab Results 12/01/24 Range/Units 10:29 Urine Color Dark Red Urine Appearance Turbid (Clear) Urine pH 8.5 H (5.0-8.0) Ur Specific [place] 1.015 (1.001-1.035) Urine Protein 2+ H (Negative) Urine Glucose (UA) Negative (Negative) Urine Ketones Negative (Negative) Urine Blood Large H (Negative) Urine Nitrite Negative (Negative) Urine Bilirubin Negative (Negative) Urine Urobilinogen <2.0 (<2.0) mg/dL Ur Leukocyte Esterase Large H (Negative) Urine RBC >182 H (0-5) /hpf Urine WBC >182 H (0-5) /hpf Urine WBC Clumps Many H (None) /hpf Urine Bacteria Few H (None) /hpf Disposition Clinical Impression: Encounter for suprapubic catheter care Disposition: HOME SELF-CARE Condition: Stable Additional Instructions: Please return to the Emergency Department if symptoms worsen or any other concerns. Is patient prescribed a controlled substance at d/c from ED?: No Referrals: Mayank Laurent MD [Primary Care Provider] - 1-2 days Time of Disposition: 10:35
[2024-12-01 10:56] LABS: Appearance,Urine Turbid (Clear); Bacteria,Urine Few /hpf; Bilirubin,Urine Negative (Negative); Blood,Urine Large (Negative); Color,Urine Dark Red; Glucose,Urine (UA) Negative (Negative); Ketones,Urine Negative (Negative); Leukocyte Esterase,Urine Large (Negative); Nitrite,Urine Negative (Negative); PH, Urine 8.5 (5.0-8.0); Protein,Urine 2+ (Negative); RBC,Urine >182 /hpf (0-5); Urobilinogen,Urine <2.0 mg/dL (<2.0); WBC,Urine >182 /hpf (0-5)
[2024-12-01 11:07] VITALS: BP 179/86; PULSE 80; TEMP 97.8
[2024-12-01 11:10] LABS: Specific Gravity,Urine 1.015 (1.001-1.035)
== END 2024-12-01 11:07 | disposition home or self-care (01) ==
LOC: EC 09:29
DX: Z46.6 Encounter for fitting and adjustment of urinary device (principal)
CPT/HCPCS: 81001; 87086; 99283

== ENCOUNTER 2024-12-29 07:48 | Emergency (ER) | payer MEDICARE, OTHER ==
[2024-12-29 07:56] VITALS: TEMP 97.7
--- NOTE | 2024-12-29 08:27 | ED ---
General Adult HPI - General Chief complaint: Recheck/Abnormal Lab/Rx Stated complaint: Cath issue Time Seen by Provider: 12/29/24 07:58 Source: patient, RN notes reviewed Mode of arrival: wheelchair Limitations: no limitations - History of Present Illness Initial comments: Patient is a 64-year-old male present to the emergency department with concern for needing his Haas catheter change. Patient states that is a little bit cloudy and he has concern for possible infection. Patient states it is time to have a change. Patient states he used to have home health care however they do not come out anymore. Patient states his urology office refuses to change it for him. - Related Data Home Medications Medication Instructions Recorded Confirmed Metoprolol Succinate (ER) [Toprol 25 mg PO BID 11/23/20 10/15/23 XL] Previous Rx's Medication Instructions Recorded Acetaminophen Tab [Tylenol] 650 mg PO Q6HR PRN tab 10/19/23 Famotidine [Pepcid] 20 mg PO DAILY #30 tab 10/19/23 Magnesium Oxide [Mag-Ox] 400 mg PO DAILY #30 tab 10/19/23 Sodium Bicarbonate Tab 650 mg PO TID #90 tab 10/19/23 hydrALAZINE HCL 25 mg PO TID 30 Days #90 tab 10/19/23 Diphenox-Atrop 2.5-0.025 mg 1 tab PO TID 3 Days #9 tablet 10/20/23 [Lomotil] Nitrofurantoin Monohyd/M-Cryst 100 mg PO Q12HR #14 cap 12/29/24 [Macrobid] Allergies Allergy/AdvReac Type Severity Reaction Status Date / Time No Known Allergies Allergy Verified 12/01/24 09:33 Review of Systems ROS Statement: Those systems with pertinent positive or pertinent negative responses have been documented in the HPI. ROS Other: All systems not noted in ROS Statement are negative. 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 -sores on right foot, wound left side back and left hip. Past Anesthesia/Blood Transfusion Reactions: No Reported Reaction Additional Past Anesthesia/Blood Transfusion Reaction / Comment(s): . Past Psychological History: No Psychological Hx Reported Past Drug Use History: None Reported - Past Family History Mother Family Medical History: Cancer Additional Family Medical History / Comment(s): breast cancer, leukemia Sister(s) Family Medical History: Cancer Additional Family Medical History / Comment(s): breast cancer Father Family Medical History: Cancer General Exam Limitations: no limitations General appearance: alert, in no apparent distress Eye exam: Present: normal appearance Neck exam: Present: normal inspection Respiratory exam: Present: normal lung sounds bilaterally Cardiovascular Exam: Present: regular rate, normal rhythm Extremities exam: Present: other (Weakness and atrophy bilateral legs) Neurological exam: Present: alert Psychiatric exam: Present: normal affect, normal mood Course Vital Signs 12/29/24 07:52 Temperature 97.7 F Pulse Rate 98 Respiratory 20 Rate Blood Pressure 188/83 O2 Sat by Pulse 97 Oximetry Procedures - Catheter Insertion (Urinary) Indications: replaced: fell out/removed/no longer functioning Prophylactic Antibiotics Given: No Preparation: Povidone-Iodine Type of Catheter Inserted: Haas (Suprapubic) Catheter [place] Size: 16 Catheter Balloon Size (mLs): 10 Topical Anesthesia Used: No Results: successfully catheterized-immediate flow Patient Tolerated Procedure: well, no complications Complications: none Medical Decision Making - Medical Decision Making Was pt. sent in by a medical professional or institution (, PA, SENIOR PHYSICIAN, urgent care, hospital, or alf...) When possible be specific @ -No Did you speak to anyone other than the patient for history (EMS, parent, family, police, friend...)? What history was obtained from this source @ -No Did you review nursing and triage notes (agree or disagree)? Why? @ -I reviewed and agree with nursing and triage notes Were old charts reviewed (outside hosp., previous admission, EMS record, old EKG, old radiological studies, urgent care reports/EKG's, alf records)? Report findings @ -No old charts were reviewed Differential Diagnosis (chest pain, altered mental status, abdominal pain women, abdominal pain men, vaginal bleeding, weakness, fever, dyspnea, syncope, headache, dizziness, GI bleed, back pain, seizure, CVA, palpatations, mental health, musculoskeletal)? @ -MDM differential abdominal pain man differential Abdominal Pain Men: Appendicitis, cholecystitis, diverticulosis, ischemic bowel, pancreatitis, hepatitis, UTI, gastroenteritis, AAA, incarcerated hernia, bowel obstruction, constipation, inflammatory bowel, hepatitis, peptic ulcer disease, splenic inf arction, perforated viscus, testicular torsion, this is not meant to be an all- inclusive list EKG interpreted by me (3pts min.). @ -As above X-rays interpreted by me (1pt min.). @ -None done CT interpreted by me (1pt min.). @ -None done U/S interpreted by me (1pt. min.). @ -None done What testing was considered but not performed or refused? (CT, X-rays, U/S, labs)? Why? @ -None What meds were considered but not given or refused? Why? @ -None Did you discuss the management of the patient with other professionals (professionals i.e. , PA, SENIOR PHYSICIAN, lab, RT, psych nurse, social services counselor, cotton buyer, teacher, production officer, therapeutic case manager)? Give summary @ -No Was smoking cessation discussed for >3mins.? @ -No Was critical care preformed (if so, how long)? @ -No Were there social determinants of health that impacted care today? How? (Homelessness, low income, unemployed, alcoholism, drug addiction, transportation, low edu. Level, literacy, decrease access to med. care, penitentiary, rehab)? @ -No Was there de-escalation of care discussed even if they declined (Discuss DNR or withdrawal of care, Hospice)? DNR status @ -No What co-morbidities impacted this encounter? (DM, HTN, Smoking, COPD, CAD, Cancer, CVA, ARF, Chemo, Hep., AIDS, mental health diagnosis, sleep apnea, morbid obesity)? @ -History of spina bifida. Chronic Haas catheter Was patient admitted / discharged? Hospital course, mention meds given and route, prescriptions, significant lab abnormalities, going to OR and other pertinent info. @ -Patient presents for catheter change. Last was over a month ago. Patient states he no longer has home health nurse. Catheter was changed without difficulty and is draining. Urinalysis concerning for possible infection that patient has concerns with and will be prescribed antibiotics pending urine culture Undiagnosed new problem with uncertain prognosis? @ -No Drug Therapy requiring intensive monitoring for toxicity (Heparin, Nitro, Insulin, Cardizem)? @ -No Were any procedures done? @ -Haas catheter change, see above Diagnosis/symptom? @ -Haas catheter change Acute, or Chronic, or Acute on Chronic? @ -Acute Uncomplicated (without systemic symptoms) or Complicated (systemic symptoms)? @ -Default Side effects of treatment? @ -No Exacerbation, Progression, or Severe Exacerbation? @ -No Poses a threat to life or bodily function? How? (Chest pain, [place], [place], pneumonia, PE, COPD, DKA, ARF, appy, cholecystitis, CVA, Diverticulitis, Homicidal, Suicidal, threat to staff... and all critical care pts) @ -No - Lab Data Lab Results 12/29/24 Range/Units 08:15 Urine Color Colorless Urine Appearance Cloudy (Clear) Urine pH 8.0 (5.0-8.0) Ur Specific [place] 1.013 (1.001-1.035) Urine Protein 1+ H (Negative) Urine Glucose (UA) Negative (Negative) Urine Ketones Negative (Negative) Urine Blood Small H (Negative) Urine Nitrite Negative (Negative) Urine Bilirubin Negative (Negative) Urine Urobilinogen <2.0 (<2.0) mg/dL Ur Leukocyte Esterase Large H (Negative) Urine RBC 46 H (0-5) /hpf Urine WBC >182 H (0-5) /hpf Triple Phos Crystals Few H (None) /hpf Disposition Clinical Impression: Urinary catheter (Haas) change required, Urinary retention Disposition: HOME SELF-CARE Condition: Stable Instructions (If sedation given, give patient instructions): Haas Catheter Placement and Care (ED) Additional Instructions: Please do follow-up with your urologist in the next few days for recheck. Please also follow-up with your primary care physician. Return for fever, vomiting, pain, change or worsening symptoms or other concerns. Prescription sent to pharmacy. Prescriptions: Nitrofurantoin Monohyd/M-Cryst [Macrobid] 100 mg PO Q12HR #14 cap Is patient prescribed a controlled substance at d/c from ED?: No Referrals: Mayank Laurent MD [Primary Care Provider] - 1-2 days (Conact regarding a home care nurse for catheter care and catheter exchanges.) Time of Disposition: 09:33
[2024-12-29 09:13] LABS: Bilirubin,Urine Negative (Negative); Blood,Urine Small (Negative); Color,Urine Colorless; Glucose,Urine (UA) Negative (Negative); Ketones,Urine Negative (Negative); Leukocyte Esterase,Urine Large (Negative); Nitrite,Urine Negative (Negative); PH, Urine 8.0 (5.0-8.0); Protein,Urine 1+ (Negative); RBC,Urine 46 /hpf (0-5); Specific Gravity,Urine 1.013 (1.001-1.035); Triple Phosphate Crystal,Urine Few /hpf; Urobilinogen,Urine <2.0 mg/dL (<2.0); WBC,Urine >182 /hpf (0-5)
[2024-12-29 09:46] VITALS: BP 165/74; PULSE 80; RESP 18
== END 2024-12-29 09:46 | disposition home or self-care (01) ==
LOC: EC 07:48
DX: Z46.6 Encounter for fitting and adjustment of urinary device (principal)
CPT/HCPCS: 81001; 87086; 99283